=== PATIENT | male | born 1960 | race Caucasian/White ===

== ENCOUNTER 2017-04-25 11:20 | Observation (INO) | payer OTHER, SELFPAY ==
[2017-04-25 11:22] VITALS: BP 151/107; PULSE 84; RESP 17; TEMP 36.7; O2SAT 98; BMI 24.5
--- NOTE | 2017-04-25 11:52 | CT_ITS ---
STUDY: CT ABDOMEN AND PELVIS WITHOUT CONTRAST REASON FOR EXAM: Male, 56 years old. Right flank pain and hematuria. RADIATION DOSAGE (If Supplied By Facility): CTDIvol = ( 9.05 ) mGy, DLP = ( 440.71 ) mGycm TECHNIQUE: Transaxial images were obtained from the dome of the diaphragm to the symphysis pubis without oral contrast, and without intravenous contrast. Sagittal and coronal images were reconstructed. Individualized dose optimization techniques were used for this CT. COMPARISON: Comparison is made with prior study dated October 29, 2011. FINDINGS: Minimal linear atelectasis at the right lung base. The visualized portions of the heart are within normal limits. Normal liver. Normal gallbladder and extrahepatic biliary system. Normal spleen. Normal pancreas. Normal bilateral adrenal glands. Stable appearance of the right kidney. There is a moderate degree of cortical atrophy of the right kidney. Multiple cysts are seen some of them are hyperdense. There now is evidence of a 3.2 cm x 3.5 cm soft tissue mass in the inferior lateral portion of the right kidney. A neoplastic process should be ruled out. There is a 2.1 cm hyperdense nodule in the posterior superior aspect of the left kidney. This has slightly increased in size and may represent a hyperdense cyst. Correlation with ultrasound is recommended. Normal visualized stomach. Normal small intestine. Surgical anastomosis is seen in the sigmoid colon. There are surgical clips in the region of the appendix consistent with a prior appendectomy. There is scattered atherosclerotic calcification of the abdominal aorta, without a demonstrated aneurysm. Normal inferior vena cava. Normal retroperitoneum. Mild degree of bladder wall thickening although the bladder is not completely distended. There is a small umbilical hernia containing fat. There are diffuse degenerative changes of the visualized lumbar spine. Stable subchondral cystic changes seen in the vertebrae. Loss of the normal lumbar lordosis. CT/Abdomen/Pelvis without Cont IMPRESSION: Moderate atrophy of the right kidney with a probable mass as described. Correlation with ultrasound is recommended. Electronically Signed: Shaq Roe MD at 12:40 EST Tel [phone], Service support ,
[2017-04-25] MEDS: 0.9% Normal Saline 1,000 ML 1000 ML IV (11:57)
--- NOTE | 2017-04-25 11:57 | ED.DCSUM_ITS ---
- ER Visit Summary Date of Service: 04/25/17 Chief Complaint: [] Hematuria History of Present Illness: The patient is a 56 M [] complaining of hematuria beginning yesterday. Reports the last several times he has peed it has had red blood. Reports this is painless. Denies nausea and vomiting. Denies fevers. Denies weight loss. Reports he has not seen a physician for approximately 10 years. Reports mild right CVA tenderness prior to arrival. Denies pain now and does not want any pain medications. Denies dysuria. Physical Examination: [] Afebrile, vital signs stable. 56-year-old male in no acute distress. Cardiovascular exam is regular rate and rhythm. Lungs are clear to auscultation. Abdomen is soft and nontender. No CVA tenderness on exam. No lower extremity edema. Test Results: [] Labs normal the exception of slight elevation of the alk phos, ALT, AST. INR 1.0. CT of the abdomen/pelvis without contrast shows a right kidney mass. Renal ultrasound shows a confirmed solid mass in the right kidney. Emergency Department Course and Treatment: [] Patient provided IV fluids. Case discussed with the on-call oncologist/ industrial maintenance tech, urologist, and hospitalist. Patient will be admitted to the hospitalist with consultation to urology. Urologist informed me he will likely take the patient to the operating room tomorrow for a scope. Patient is amenable to admission and evaluation. Treatment Plan: [] Admit to medicine, consult urology. Disposition: [] Admit, stable. Impression: [] Painless hematuria New right renal mass This note was generated with [employer] dictation software. It may contain incorrect words, spelling, and punctuation that were not noted in review of the chart prior to signing ED Disposition - Plan for ED Patient: Chief Complaint: Complaint Referrals: David Rico MD [STAFF PHYSICIAN] -
[2017-04-25 12:03] LABS: Absolute Lymphocyte Count 1.44 X10^3/ul (0.83-4.51); Absolute Neutrophil Count 3.2 X10^3/uL (2.0-7.7); Basophil# 0.03 X10^3/uL; Basophil% 0.5 % (0-1); Eosinophil# 0.28 X10^3/uL; Eosinophils% 4.7 % (0-5); Hematocrit 44.6 % (40-54); Hemoglobin 15.2 g/dl (13.0-16.5); Lymphocyte # 1.44 X10^3/ul (4.0); Lymphocyte % 24.2 % (19-41); Mean Corp Hgb Conc 34.1 g/gl (32-36); Mean Corpuscular Hgb 33.5 pg (27.0-32.0); Mean Corpuscular Volume 98.2 fL (80-94); Mean Platelet Vol. 9.9 fl (6.2-12.0); Monocyte# 0.94 X10^3/uL; Monocyte% 15.8 % (0-10); Neutrophil # 3.23 X10^3/uL (2.7-7.7); Neutrophil % 54.5 % (47-70); Platelet Count 189 K/mm3 (150-450); RBC Distribution Width CV 13.3 % (11.6-14.6); RBC Distribution Width SD 47.4 fl (35.1-43.9); Red Blood Count 4.54 M/mm3 (4.6-6.2); White Blood Count 5.9 K/mm3 (4.4-11.0)
[2017-04-25 12:05] LABS: POSITIVE COUNT NO; POSITIVE DIFFERENTIAL NO; POSITIVE MORPHOLOGY NO
[2017-04-25 12:11] LABS: Partial Thromboplast Time 28.4 Seconds (24.1-36.2); Prothrombin Time (Protime)PT. 12.7 SECONDS (11.7-14.9)
[2017-04-25 12:16] LABS: AST(SGOT) 142 U/L (15-37); Alanine Aminotransfer ALT/SGPT 183 U/L (16-61); Albumin, Serum 3.6 g/dL (3.2-5.0); Alkaline Phosphatase 124 U/L (45-117); Anion Gap 4 (5-15); BUN 11 mg/dL (7-18); BUN/Creat Ratio 12.3 RATIO (10-20); Calcium,Total 8.7 mg/dL (8.5-10.1); Chloride 100 mmol/L (98-107); EST Glomerular Filtration Rate 94 mL/min (>60); Est Glom Filt Rate - Afr Amer 113 mL/min (>60); Estimated Creatinine Clearance 90.78 ml/min; Globulin 3.6 g/dL (2.2-4.2); Glucose 95 mg/dL (74-106); Potassium 4.5 mmol/L (3.5-5.1); Protein, Total 7.2 g/dL (6.4-8.2); Sodium Level 136 mmol/L (136-145)
--- NOTE | 2017-04-25 13:00 | US_ITS ---
STUDY: RENAL ULTRASOUND - COMPLETE REASON FOR EXAM: Male, 56 years old. Possible right renal mass. TECHNIQUE: Ultrasound evaluation of the kidneys was performed with real-time and static yanez-scale imaging. COMPARISON: Comparison is made with prior CT scan of the abdomen and earlier today. FINDINGS: RIGHT KIDNEY: Normal location of the right kidney, which is normal in size. The right kidney measures 12.1 cm x 5.7 cm x 4.7 cm. There is a normal cortex of the right kidney. The renal cortex measures 1.5 cm. Multiple renal cysts are seen. The largest measures 4.5 cm x 4.4 cm x 3.4 cm. In the lateral aspect of the right kidney, there is evidence of a 3.3 cm x 2.7 cm x 2.7 cm solid mass. A neoplastic process should be ruled out. There are no right renal calculi. There is no right hydronephrosis. DISTAL RIGHT URETER: There is non-visualization of the distal right ureter. There is no demonstrated right ureterovesical junction calculus. There is no demonstrated right ureteral jet. LEFT KIDNEY: Normal location of the left kidney, which is normal in size. The left kidney measures 13 cm x 4.7 cm x 5.8 cm. There is a normal cortex of the left kidney. The renal cortex measures 1.8 cm. There is a 1.8 cm x 1.8 cm x 2.2 cm cyst. There are no left renal calculi. There is no left hydronephrosis. DISTAL LEFT URETER: There is non-visualization of the distal left ureter. There is no demonstrated left ureterovesical junction calculus. There is no demonstrated left ureteral jet. BLADDER: The distended urinary bladder has a volume of 252 ml. Mild degree of diffuse bladder wall thickening measuring 4 mm. There is no demonstrated mass within the urinary bladder. There are no demonstrated bladder calculi. US/Kidney and Bladder IMPRESSION: Multiple bilateral renal cysts. 3.3 cm x 2.7 cm x 2.7 cm solid mass in the mid lateral portion of the right kidney. Electronically Signed: Shaq Roe MD at 14:49 EST Tel [phone], Service support ,
[2017-04-25 13:13] LABS: Mucous, Urine 0 SEEN /hpf (<or=2+); Squamous Epithelial Cells - UA 0 SEEN /hpf (0-5)
[2017-04-25 13:18] LABS: Color, Urine Red (Yellow); Glucose, Dipstick Normal (Normal); Ketone-Dipstick 5 mg/dl (Negative); Leukocyte Esterase-Dipstick 100 /ul (Negative); Nitrite-Dipstick Negative (Negative); Occult Blood-Urine 250 /ul (Negative); Protein-Dipstick 100 mg/dl (Negative); Urine Bilirubin Dipstick Negative (Negative); Urine Clarity Cloudy (Clear); Urine Urobilinogen Normal (Normal); Urine pH 6.5 (5.0 - 8.0)
[2017-04-25 13:24] LABS: Red Blood Cells-Urine > 100 SEEN /hpf (0-5)
[2017-04-25 13:27] LABS: White Blood Cells 10-25 SEEN /hpf (0-5)
[2017-04-25 13:28] LABS: Bacteria 1+ /hpf (None Seen)
[2017-04-25 15:34] VITALS: BP 159/96; PULSE 79; RESP 17; O2SAT 98
[2017-04-25 15:37] VITALS: BP 161/97; PULSE 74; RESP 17; O2SAT 98
[2017-04-25 15:52] VITALS: BMI 24.6
--- NOTE | 2017-04-25 16:24 | HP.PCM_ITS ---
Problem List (1) Tobacco use Status: Chronic (2) Cannabis use disorder, mild, abuse Status: Chronic (3) ETOH abuse Status: Chronic (4) Elevated BP without diagnosis of hypertension Status: Chronic (5) Hematuria Status: Acute Qualifiers: Hematuria type: unspecified type Qualified Code(s): R31.9 - Hematuria, unspecified (6) Renal mass, right Status: Chronic History of Present Illness Date of Admission: 04/25/17 Chief Complaint: Hematuria, painless The patient is a 56 y/o M w/ PMHx: Tobacco use, EtOH Abuse (6, 12 ounce beers/ day), Cannabis usage who does not regular see a physician who presents to the [facility] ED on 04/25/17 with history of painless hematuria x 2 days. In the ED work-up included T 98, HR 70s, BP 150-160s/90-100, RR 17, 98% on RA, CBC w/ WBC 5.9, Hgb 15.2, Plts 189 with increased mono%, normal coags, CMP w/ Alk phos 124, AST/ ALT 183/142, UA w/ blood 250, protein 100, > 100 RBC, 10-25 WBC, 0 SEC, 1+ bacteria, CT A/P w/ moderate atrophy of the right kidney with a probable mass, follow-up US w/ multiple bilateral renal cysts, 3.3x2.7x2.5 cm solid mass in the mid lateral portion of the R kidney. In the ED patient administered NS. ED physician contacted Urology and recommendation for further evaluation. Discussed case with Urology and will obtain CT A/P with contrast. At this time no necessary progressive toward intervention inpatient. Although in case will obtain EKG and CXR which were obtained in the ED prior to transition to the floor. Past Medical History Past Medical History (Chronic Problems): Chronic Problems Tobacco use (Chronic) Cannabis use disorder, mild, abuse (Chronic) ETOH abuse (Chronic) Elevated BP without diagnosis of hypertension (Chronic) Renal mass, right (Chronic) Allergies No Known Allergies Allergy (Verified 04/25/17 11:21) Home Medications: Ambulatory Orders Medication Instructions Recorded NK [NK] 04/25/17 Psychiatric History: No pertinent psych hx Lives: Spouse/ Significant Other Smoking Status: Current every day smoker - 1/2 ppd. Tobacco Use: Cigarettes Alcohol: Heavy - 6, 12 ounce beers per day. Drugs: Marijuana - *Family History Maternal History Items: No pertinent history Paternal History Items: Unknown Review of Systems Constitutional: Denies: Chills, Fever, Weight Change HEENT: Denies: Head Aches, Sinus Congestion, Sinus Drainage Cardiovascular: Denies: Chest Pain, Palpitations Respiratory: Denies: Cough, Shortness of breath at rest, Sputum production Gastrointestinal: Denies: Abdominal Pain, Nausea, Vomiting Genitourinary: Reports: Hematuria. Denies: Dysuria Musculoskeletal: Denies: Joint Pain, Joint Tenderness Skin: Denies: Rash, Wounds Neurological: Denies: Numbness, Tingling, Focal weakness Psychiatric: Denies: Anxiety, Depression, Homicidal Ideations, Suicidal Ideations Hematologic/ Lymphatic: Denies: Easy Bruising, Easy Bleeding VTE Information - Inpt Only VTE Present on Admission: No VTE Mechan Device Prophylaxis: SCD's VTE Pharm Prophylaxis ordered?: No Reason prophylaxis not ordered:: Medical Contraindication Patient Problems: Active and Suspected Problems Hematuria (Acute) Subjective: Seated upright in the ED bed, NAD. Objective: Physical Examination: General: awake, alert, oriented x 3 and cooperative, seated upright in the ED bed in no apparent distress. Skin: normal color, turgor, no icterus, cyanosis. HEENT: AT/NC, EOMI, PERRLA, MMM, no carotid bruits or JVD noted. Lungs: CTA bilaterally, moderate effort, mild decrease BL bases, no rales, ronchi or wheezing. Heart: Regular rate and rhythm; no gallop, rub audible. Abdomen: soft, thin habitus, NTTP, ND, normal BS, +HM. Extremities: no cyanosis, clubbing, or edema. Neurological: patient awake, alert, oriented x 3; cognitive function intact; pupils equally reactive to light and accomodation; cranial nerves II-XII grossly normal, moving all 4 extremities, no focal deficits, strength preserved. Psychiatric: affect appears normal, no acute evidence of depressive or anxiety feelings. - Physical Exam Vital Signs Temp Pulse Resp BP Pulse Ox 98.0 F 74 17 161/97 H 98 04/25/17 11:22 04/25/17 15:37 04/25/17 15:37 04/25/17 15:37 04/25/17 15:37 Oxygen Delivery Method Room Air Weight: 161 lb 13.109 oz Body Mass Index (BMI) 24.5 Laboratory Tests Past 24 Hrs 04/25/17 04/25/17 04/25/17 11:40 11:40 11:40 WBC 5.9 RBC 4.54 L Hgb 15.2 Hct 44.6 MCV 98.2 H MCH 33.5 H MCHC 34.1 RDW 13.3 RDW Differential 47.4 H Plt Count 189 MPV 9.9 Immature Gran % (Auto) 0.300 Neut % (Auto) 54.5 Lymph % (Auto) 24.2 [place] % (Auto) 15.8 H Eos % (Auto) 4.7 Baso % (Auto) 0.5 Absolute Neuts (auto) 3.2 Absolute Lymphs (auto) 1.44 Total Counted Not Reportable PT 12.7 INR 1.0 APTT 28.4 Sodium 136 Potassium 4.5 Chloride 100 Carbon Dioxide 32.0 Anion Gap 4 L BUN 11 Creatinine 0.90 Estim Creat Clear Calc 90.78 Est GFR (MDRD) Af Amer 113 Est GFR (MDRD) Non-Af 94 BUN/Creatinine Ratio 12.3 Glucose 95 Calcium 8.7 Total Bilirubin 0.90 AST 142 H ALT 183 H Alkaline Phosphatase 124 H Total Protein 7.2 Albumin 3.6 Globulin 3.6 Albumin/Globulin Ratio 1.0 Urine Color Urine Clarity Urine pH Ur Specific Ash Urine Protein Urine Glucose (UA) Urine Ketones Urine Occult Blood Urine Nitrite Urine Bilirubin Urine Urobilinogen Ur Leukocyte Esterase Urine RBC Urine WBC Ur Squamous Epith Cells Urine Bacteria Urine Mucus 04/25/17 12:56 WBC RBC Hgb Hct MCV MCH MCHC RDW RDW Differential Plt Count MPV Immature Gran % (Auto) Neut % (Auto) Lymph % (Auto) [place] % (Auto) Eos % (Auto) Baso % (Auto) Absolute Neuts (auto) Absolute Lymphs (auto) Total Counted PT INR APTT Sodium Potassium Chloride Carbon Dioxide Anion Gap BUN Creatinine Estim Creat Clear Calc Est GFR (MDRD) Af Amer Est GFR (MDRD) Non-Af BUN/Creatinine Ratio Glucose Calcium Total Bilirubin AST ALT Alkaline Phosphatase Total Protein Albumin Globulin Albumin/Globulin Ratio Urine Color Red Urine Clarity Cloudy Urine pH 6.5 Ur Specific Ash 1.010 Urine Protein 100 H Urine Glucose (UA) Normal Urine Ketones 5 H Urine Occult Blood 250 H Urine Nitrite Negative Urine Bilirubin Negative Urine Urobilinogen Normal Ur Leukocyte Esterase 100 H Urine RBC > 100 SEEN Urine WBC 10-25 SEEN Ur Squamous Epith Cells 0 SEEN Urine Bacteria 1+ Urine Mucus 0 SEEN Assessment/Plan Active and Suspected Problems Hematuria (Acute) The patient is a 56 y/o M w/ PMHx: Tobacco use, EtOH Abuse, Cannabis usage who does not regular see a physician who presents to the [facility] ED on 04/25/17 with history of painless hematuria x 2 days. (1) Painless Hematuria w/ Right Renal Mass w/ ? UTI: Ongoing hematuria, noted history of tobacco use, UA w/ ? UTI, notable WBC, 1+ bacteria, decent sample in addition to hematuria, will admit to [facility] to complete work-up per Urology/ED request, maintain on IVFs, initiate IV rocephin, obtain per Urology request CT A /P with IV contrast as prior performed without contrast, likely no intervention during current admission, but in case maintain NPO after midnight except sip water w/ medications and obtain EKG, CXR given tobacco use history. If onset notable clots with any concern for retention would initiate irrigation. Expect following Urology assessment possible discharge to home. (2) Elevated Liver Function Tests: Given EtOH abuse history and HM, not surprising, continue to hydrate, repeat hepatic profile in AM, obtain hepatic US to be thorough given renal findings concurrently, obtain hepatitis panel. (3) Tobacco Abuse: Encouraged cessation, inpatient consultation per RT, NR if desired. (4) EtOH Abuse: Patient notes routine consumption of at least 6, 12 ounce beers per day. Will maintain on CIWA protocol, MVI, thiamine and folic acid. Patient notes intention of continued EtOH usage. EtOH level pending. (5) Elevated BP without HTN Dx: Not evaluated per physician in some time, likely HTN, will continue to monitor, add regimen if continued above goal into tomorrow, PRN hydralazine. (6) DVT Prophylaxis: SCDs, defer chemoprophylaxis given hematuria presentation. Code Visit OBSV E&M: 77685 Initial observation care L3
--- NOTE | 2017-04-25 16:41 | EKG12_ITS ---
Test Reason : HX OF SMOKING Blood Pressure : / mmHG Vent. Rate : 068 BPM Atrial Rate : 068 BPM P-R Int : 138 ms QRS Dur : 090 ms QT Int : 384 ms P-R-T Axes : 050 053 057 degrees QTc Int : 408 ms Normal sinus rhythm Septal infarct , age undetermined Abnormal ECG Confirmed by RUEL RODRIGUEZ, MINNA ([id number]), publication editor WALLY SALGADO ([id number]) on 04/30/2017 2:08:57 PM Referred By: ELSY Confirmed By:MINNA LIPSCOMB MD
--- NOTE | 2017-04-25 16:43 | RAD_ITS ---
STUDY: X-RAY CHEST REASON FOR EXAM: Male, 56 years old. Blood in urine. TECHNIQUE: Frontal and lateral views of the chest. COMPARISON: None. FINDINGS: The lungs are clear and expanded. There is no demonstrated pleural abnormality. Normal size heart. Normal mediastinum and zainab. Normal visualized pulmonary arteries. Normal visualized aortic arch and descending thoracic aorta. Normal visualized thoracic spine. Normal visualized ribs, clavicles, and shoulders. There is no demonstrated abnormality of the visualized soft tissue structures of the upper abdomen. RAD/Chest PA and Lateral IMPRESSION: Normal x-ray examination of the chest. Electronically Signed: Norberto Osuna MD at 17:06 EST , Service support ,
--- NOTE | 2017-04-25 16:44 | NURSING ---
314 HEMATURIA, RENAL MASS WHITE
--- NOTE | 2017-04-25 16:47 | US_ITS ---
STUDY: ABDOMINAL ULTRASOUND - RIGHT UPPER QUADRANT REASON FOR VISIT: Male, 56 years old. Elevated liver function tests. TECHNIQUE: Ultrasound evaluation of the right upper quadrant was performed with real-time and static baxter-scale imaging. TECHNICAL QUALITY: Limited. The patient is nonfasting. COMPARISON: CT scan of the same day.. FINDINGS: Liver: The liver measures 14.3 cm. There is normal echogenicity of the liver. The bile ducts are within normal limits. There is hepatic color flow. The direction of portal flow is hepatopetal. There is no demonstrated mass lesion. Gallbladder: Incompletely distended gallbladder. The gallbladder wall measures 3 mm. There is a negative sonographic Bruno's sign. There is no pericholecystic fluid. There are no gallstones. Common Bile Duct (C.B.D.): The common bile duct measures 3 mm. Pancreas: Not adequately seen. Right Kidney: Markedly abnormal right kidney including possible solid mass-see the CT report. US/Liver IMPRESSION: No definite abnormality of the liver or the gallbladder. However the gallbladder is incompletely distended and evaluation is limited. Markedly abnormal right kidney including possible solid mass-see the CT report. Apparently the referring physician indicated that the patient did not need to be fasting. Electronically Signed: Norberto Osuna MD at 21:48 EST , Service support ,
--- NOTE | 2017-04-25 16:47 | NURSING ---
NO OLD EKGS
--- NOTE | 2017-04-25 17:47 | CT_ITS ---
STUDY: CT ABDOMEN AND PELVIS WITH CONTRAST REASON FOR EXAM: Male, 56 years old. Hematuria. Renal mass. RADIATION DOSAGE (If Supplied By Facility): CTDIvol = ( 13.09 ) mGy, DLP = ( 1182.75 ) mGycm TECHNIQUE: Transaxial images were obtained from the dome of the diaphragm to the symphysis pubis without oral contrast. 100 ml of Isovue 300 contrast was administered. Sagittal and coronal images were reconstructed. Individualized dose optimization techniques were used for this CT. COMPARISON: Earlier today at 12:00 PM. FINDINGS: The visualized lung bases are unremarkable. The visualized portions of the heart are within normal limits. Abnormal appearance of the right kidney with numerous scars cysts and chronic severe hydronephrosis. This examination confirms a suspicious mass 3.1 cm size in the lower right kidney which could be a neoplasm. Left kidney shows no significant abnormalities. There is a 2.4 cm posterior exophytic renal cyst, also present previously. No other changes or acute abnormalities since the exam of earlier today. CT/Abdomen/Pelvis WITH Contrast IMPRESSION: This exam confirms a very suspicious 3.1 cm solid mass of the lower pole of the right kidney which is otherwise markedly abnormal. Renal cell carcinoma is a possibility. Electronically Signed: Norberto Osuna MD at 20:53 EST , Service support ,
[2017-04-25 18:01] VITALS: BMI 24.3
[2017-04-25 18:10] VITALS: BP 158/100; PULSE 70; RESP 16; TEMP 36.5; O2SAT 98
[2017-04-25 18:12] VITALS: BP 158/100; PULSE 70; RESP 16; TEMP 36.5; O2SAT 98
[2017-04-25] MEDS: 0.9% Normal Saline 1,000 ML 125 ML IV (18:15)
[2017-04-25] MEDS: Ceftriaxone 1 GM/50 ML BAG IV (18:22)
[2017-04-25] MEDS: HYDROcodone Bitartrate/Apap 5/325 Tablet PO (18:34)
[2017-04-25 18:50] LABS: Phosphorus 2.2 mg/dL (2.5-4.9)
[2017-04-25 18:55] LABS: Alcohol, Blood (Medical)-Serum < 3.0 mg/dL
[2017-04-25] MEDS: Famotidine 20 MG Tablet PO (21:31)
[2017-04-25] MEDS: Docusate Sodium 100 MG Capsule PO (21:31)
[2017-04-25] MEDS: Thiamine Hydrochloride 100 MG Tablet PO (21:31)
[2017-04-25] MEDS: 0.9% NaCl Peripheral Flush Adult/Peds IV (21:32)
[2017-04-25 21:33] VITALS: BP 137/96; PULSE 68; RESP 16; TEMP 36.7; O2SAT 98
[2017-04-26] VITALS (10 sets, daily range): BP systolic 109–140; BP diastolic 80–96; PULSE 60–77; RESP 16–18; TEMP 36.3–36.6; O2SAT 95–98; BMI 24.2
--- NOTE | 2017-04-26 | FLU_PTH ---
PATIENT: PRASANTH PHAN LOC: MS3 U#:[id number] AGE/SX: 56/M ROOM: MD314 RE04/25/[address]: Dr. Pavithra Peterson MD : [id number] BED: 1 DIS: 04/26/2017 SPEC #: [id number] RECD: 04/26/17 14:30 STATUS: YAKELIN RIGOBERTO #: [id number] LUCIE: 04/26/17 00:[address]: Pavithra Peterson DEPT: CYTOLOGY RECD BY: Valentina Giordano ENTERED: 04/26/17 14:30 SP TYPE: Fluid OTHR DR: Dr. Jorge Gray MD No Primary Care Phys Tissues: Urine Procedures: Pap Stain (control) Special Stain Group II Surgery Specimen Level IV Cytospin Fluid HEADER OPERATION: Not noted PRE-OP DIAGNOSIS: Hematuria TISSUE SUBMITTED: Urine for cytology DIAGNOSIS CYTOLOGY Urine for cytology (cytospin): Atypical urothelial cells in clusters present. See comment. AM:treasure 04/29/17 COMMENT The findings are nonspecific and could represent a variety of conditions including infection, urolithiasis, instrumentation and low grade urothelial neoplasm. Clinical correlation is necessary. Case has been reviewed in consultation with Dr. Brown who concurs with the above diagnosis. IDC:[facility] CYTOLOGY STUDY Slides are reviewed. CYTOLOGY GROSS Received is 8 ml of red, cloudy fluid labeled with the patient's name and and designated per the requisition as urine. Submitted for cytology preparation. 04/26/17 TC:? CPT: 62679
[2017-04-26 01:42] LABS: Amphetamine Urine VISTA NEGATIVE (<1000 ng/mL); Barbiturate Urine VISTA NEGATIVE (< 200 ng/mL); Benzodiazepine Urine VISTA POSITIVE (< 200 ng/mL); Cocaine Urine VISTA NEGATIVE (< 300 ng/mL); Ecstacy Urine VISTA NEGATIVE (< 500 ng/mL); Methadone Urine VISTA NEGATIVE (< 300 ng/mL); PCP Urine VISTA NEGATIVE (< 25 ng/mL); THC Urine VISTA POSITIVE (< 50 ng/mL); Vista UDS pH Range 7
[2017-04-26] MEDS: 0.9% Normal Saline 1,000 ML 125 ML IV (03:30)
[2017-04-26 06:28] LABS: Absolute Lymphocyte Count 1.27 X10^3/ul (0.83-4.51); Absolute Neutrophil Count 1.6 X10^3/uL (2.0-7.7); Basophil# 0.05 X10^3/uL; Basophil% 1.3 % (0-1); Eosinophil# 0.27 X10^3/uL; Hematocrit 38.8 % (40-54); Hemoglobin 13.5 g/dl (13.0-16.5); Lymphocyte # 1.27 X10^3/ul (4.0); Lymphocyte % 32.8 % (19-41); Mean Corp Hgb Conc 34.8 g/gl (32-36); Mean Corpuscular Hgb 34.2 pg (27.0-32.0); Mean Corpuscular Volume 98.2 fL (80-94); Mean Platelet Vol. 10.4 fl (6.2-12.0); Monocyte% 18.1 % (0-10); Neutrophil # 1.57 X10^3/uL (2.7-7.7); Neutrophil % 40.5 % (47-70); Platelet Count 161 K/mm3 (150-450); RBC Distribution Width SD 45.9 fl (35.1-43.9); Red Blood Count 3.95 M/mm3 (4.6-6.2); White Blood Count 3.9 K/mm3 (4.4-11.0)
[2017-04-26 06:31] LABS: POSITIVE COUNT NO; POSITIVE DIFFERENTIAL NO; POSITIVE MORPHOLOGY NO
[2017-04-26 06:35] LABS: AST(SGOT) 100 U/L (15-37); Alanine Aminotransfer ALT/SGPT 148 U/L (16-61); Albumin, Serum 2.8 g/dL (3.2-5.0); Alkaline Phosphatase 93 U/L (45-117); Anion Gap 6 (5-15); BUN 12 mg/dL (7-18); BUN/Creat Ratio 14.4 RATIO (10-20); Bilirubin, Direct 0.17 mg/dL (0.00-0.30); Chloride 100 mmol/L (98-107); Creatinine, Serum 0.83 mg/dL (0.70-1.30); EST Glomerular Filtration Rate 102 mL/min (>60); Est Glom Filt Rate - Afr Amer 124 mL/min (>60); Estimated Creatinine Clearance 98.43 ml/min; Globulin 3.2 g/dL (2.2-4.2); Glucose 97 mg/dL (74-106); Potassium 4.5 mmol/L (3.5-5.1); Sodium Level 134 mmol/L (136-145)
--- NOTE | 2017-04-26 08:51 | PCM.DC ---
- Discharge Diagnoses Current Active Problems: Current Active and Chronic Problems Tobacco use (Chronic) Cannabis use disorder, mild, abuse (Chronic) ETOH abuse (Chronic) Elevated BP without diagnosis of hypertension (Chronic) Hematuria (Acute) Renal mass, right (Chronic) (1) Painless Hematuria w/ Right Renal Mass w/ Acute UTI, Unclear Etiology for Renal Mass, Possible Renal Cell Carcinoma, Planned outpatient continued evaluation per Dr. Gray, Urology (2) Elevated Liver Function Tests, Suspected Chronic secondary to EtOH Abuse, Unremarkable Liver US, Hepatitis panel pending upon discharge (3) Tobacco Abuse (4) EtOH Abuse (5) Elevated BP without HTN Dx, Improved You will use the following diet at home:: No restrictions Your food should be the consistency of: Regular Your liquids should be the consistency of: Regular/Thin Discharge Activity: Return to Normal Activity May resume sexual activity in: 1-2 weeks Weight Bearing Status: Weight bearing as tolerated Call your doctor if you observe: Fever of 101 or Higher, Inability to urinate, Inability to have a bowel movement, Shortness of breath, Dizziness, Fainting spells, Chest pain, Uncontrolled pain, - - Increased blood in the urine or clots or sensation of retention of urine. Instructions: Understanding Urinary Tract Infections (UTIs), ED UTI Cystitis Male, What is Hematuria?, Hematuria: Possible Causes, What Is Kidney (Renal) Cancer? Additional Instructions: If you have worsened blood onset in your urine or issues urinating secondary to development of clots, please contact Dr. Gray office immediately. Allergies/Adverse Reactions: Allergies No Known Allergies Allergy (Verified 04/25/17 11:21) Medications to take at Discharge Cephalexin [Keflex] 500 mg PO Q12 #20 cap 04/26/17 Multivitamins,Ther W-Minerals [Multivitamin With Minerals] 1 tab PO DAILY #30 tab 04/26/17 Nicotine [Nicoderm] 14 mg TRANSDERM. DAILY #14 patch 04/26/17 Vitamin B Complex/Folic Acid [B-Complex Tablet] 0.4 mg PO DAILY #30 tab 04/26/17 The following prescriptions were given: Cephalexin [Keflex] 500 mg PO Q12 #20 cap Multivitamins,Ther W-Minerals [Multivitamin With Minerals] 1 tab PO DAILY #30 tab Nicotine [Nicoderm] 14 mg TRANSDERM. DAILY #14 patch Vitamin B Complex/Folic Acid [B-Complex Tablet] 0.4 mg PO DAILY #30 tab Primary Care Physician: David Rico MD [STAFF PHYSICIAN] - Please follow up with your Primary Care Physician in: Follow-up within 3-5 days to review admission. Please Follow Up With: Jorge Gray MD When: Follow-up within 1 week to review admission, discuss work-up renal mass. Proposed Discharge Date: 04/26/17
--- NOTE | 2017-04-26 08:56 | PCM.DC.SUM ---
Discharge Date and Diagnosis - Problem List Patient Problems: Active and Suspected Problems Hematuria (Acute) Date of Admission: 04/25/17 Date of Discharge: 04/26/17 - Primary Discharge Diagnosis Active and Suspected Problems Hematuria (Acute) (1) Painless Hematuria w/ Right Renal Mass w/ Acute UTI, Unclear Etiology for Renal Mass, Possible Renal Cell Carcinoma, Planned outpatient continued evaluation per Dr. Gray, Urology (2) Elevated Liver Function Tests, Suspected Chronic secondary to EtOH Abuse, Unremarkable Liver US, Hepatitis panel pending upon discharge (3) Tobacco Abuse (4) EtOH Abuse (5) Elevated BP without HTN Dx, Improved - Secondary Discharge Diagnosis Chronic Problems Tobacco use (Chronic) Cannabis use disorder, mild, abuse (Chronic) ETOH abuse (Chronic) Elevated BP without diagnosis of hypertension (Chronic) Renal mass, right (Chronic) Hospital Course and Treatment Imaging Results: 04/26/17 14:30 O.R. Fluoro for C-Arm [RAD] Urgent Dr. Gray Urology Operations: None Procedures: None, - - Cystoscopy per Dr. Gray. Summary of Care Provided: The patient is a 56 y/o M w/ PMHx: Tobacco use, EtOH Abuse, Cannabis usage who does not regular see a physician who presented to the [facility] ED on 04/25/17 with history of painless hematuria x 2 days. In the ED work-up included T 98, HR 70s, BP 150-160s/90-100, RR 17, 98% on RA, CBC w/ WBC 5.9, Hgb 15.2, Plts 189 with increased mono%, normal coags, CMP w/ Alk phos 124, AST/ALT 183/142, UA w/ blood 250, protein 100, > 100 RBC, 10-25 WBC, 0 SEC, 1+ bacteria, CT A/P w/ moderate atrophy of the right kidney with a probable mass, follow-up US w/ multiple bilateral renal cysts, 3.3x2.7x2.5 cm solid mass in the mid lateral portion of the R kidney. The patient was admitted to [place] to complete work-up per Urology/ED request, maintained on IVFs, initiated IV rocephin with planned keflex transition upon discharge, obtained CT A/P with IV contrast as prior performed without contrast to better evaluation renal mass with confirmation of suspicious appearing 3.1 cm solid mass of the lower pole right kidney. 04/26/17 Cystoscopy per Urology performed then planned follow-up outpatient to continue work-up and evaluation for renal mass. During admission noted stable appearing mild Elevated Liver Function Tests, suspected secondary to chronic EtOH abuse history with unremarkable appearing liver US, stable levels. Patient noted routine consumption of at least 6, 12 ounce beers per day thus maintained on CIWA protocol, MVI, thiamine and folic acid. Upon discharge continued vitamin supplementation and encouraged safe sobriety. Additionally, encouraged tobacco cessation, inpatient consultation per RT, NR rx upon discharge. During admission patient with Elevated BP without HTN Dx upon presentation, improved, encouraged PCP re-evaluation and treatment if appropriate. DAY OF DISCHARGE PROGRESS NOTE: Subjective: Patient without acute event overnight per self and nursing report. Patient does report mild flank discomfort otherwise no acute complaints. Patient denies fever, chills, nausea, emesis, abdominal pain or dyspnea. Patient agreeable to discharge to home following planned cystoscopy per Dr. Gray with outpatient further evaluation and work-up of renal mass. Patient will be discharged with follow-up with primary care physician within 3-5 days in addition to Dr. Gray within 1 week. Objective: T 97.7, HR 74, BP 131/95, RR 16, 96% on RA. Physical Examination: General: awake, alert, oriented x 3 and cooperative, seated upright in the bed, NAD. Skin: normal color, turgor, no icterus, cyanosis. HEENT: AT/NC, EOMI, PERRLA, MMM. Lungs: CTA bilaterally, moderate effort, mild decrease BL bases, no rales, ronchi or wheezing; Heart: Regular rate and rhythm; no gallop, rub audible. Abdomen: soft, NTTP, ND, normal BS. Extremities: no cyanosis, clubbing, or edema. Neurological: patient awake, alert, oriented x 3; cognitive function appears intact upon questioning,; pupils equally reactive to light and accomodation; cranial nerves II-XII grossly normal, moving all 4 extremities, strength appropriate. Psychiatric: affect appears normal, no acute evidence of depressive or anxiety feelings. Assessment and Plan: Please see hospital summary above. Discharge Activity: Return to Normal Activity May resume sexual activity in: 1-2 weeks Weight Bearing Status: Weight bearing as tolerated Call your doctor if you observe: Fever of 101 or Higher, Inability to urinate, Inability to have a bowel movement, Shortness of breath, Dizziness, Fainting spells, Chest pain, Uncontrolled pain, - - Increased blood in the urine or clots or sensation of retention of urine. Home Medications: Medications to take at Discharge Amoxicillin [Amoxil] 500 mg PO Q12H #20 capsule 04/26/17 Multivitamins,Ther W-Minerals [Multivitamin With Minerals] 1 tab PO DAILY #30 tab 04/26/17 Nicotine [Nicoderm] 14 mg TRANSDERM. DAILY #14 patch 04/26/17 Vitamin B Complex/Folic Acid [B-Complex Tablet] 0.4 mg PO DAILY #30 tab 04/26/17 Following Prescrptions Were Given to Patient: Amoxicillin [Amoxil] 500 mg PO Q12H #20 capsule Multivitamins,Ther W-Minerals [Multivitamin With Minerals] 1 tab PO DAILY #30 tab Nicotine [Nicoderm] 14 mg TRANSDERM. DAILY #14 patch Vitamin B Complex/Folic Acid [B-Complex Tablet] 0.4 mg PO DAILY #30 tab Primary Care Physician: David Rico MD [STAFF PHYSICIAN] - Please follow up with your Primary Care Physician in: Follow-up within 3-5 days to review admission. Please Follow Up With: Jorge Gray MD When: Follow-up within 1 week to review admission, discuss work-up renal mass. Patient Instructions: What is Hematuria?, Hematuria: Possible Causes, Understanding Urinary Tract Infections (UTIs), What Is Kidney (Renal) Cancer?, ED UTI Cystitis Male Disposition: Home Minutes spent on discharge:: 30 Patient Condition:: Fair Meaningful Use Info Meaningful Use Diagnoses (Choose all that apply): None applicable Code Visit OBSV E&M: 60498 Observation care discharge
[2017-04-26] MEDS: Ceftriaxone 1 GM/50 ML BAG IV (09:05)
--- NOTE | 2017-04-26 09:05 | DS.PCM_ITS ---
Discharge Date and Diagnosis - Problem List Patient Problems: Active and Suspected Problems Hematuria (Acute) Date of Admission: 04/25/17 Date of Discharge: 04/26/17 - Primary Discharge Diagnosis Active and Suspected Problems Hematuria (Acute) (1) Painless Hematuria w/ Right Renal Mass w/ Acute UTI, Unclear Etiology for Renal Mass, Possible Renal Cell Carcinoma, Planned outpatient continued evaluation per Dr. Gray, Urology (2) Elevated Liver Function Tests, Suspected Chronic secondary to EtOH Abuse, Unremarkable Liver US, Hepatitis panel pending upon discharge (3) Tobacco Abuse (4) EtOH Abuse (5) Elevated BP without HTN Dx, Improved - Secondary Discharge Diagnosis Chronic Problems Tobacco use (Chronic) Cannabis use disorder, mild, abuse (Chronic) ETOH abuse (Chronic) Elevated BP without diagnosis of hypertension (Chronic) Renal mass, right (Chronic) Hospital Course and Treatment Imaging Results: 04/26/17 14:30 O.R. Fluoro for C-Arm [RAD] Urgent Dr. Gray Urology Operations: None Procedures: None, - - Cystoscopy per Dr. Gray. Summary of Care Provided: The patient is a 56 y/o M w/ PMHx: Tobacco use, EtOH Abuse, Cannabis usage who does not regular see a physician who presented to the [facility] ED on 04/25/17 with history of painless hematuria x 2 days. In the ED work-up included T 98, HR 70s , BP 150-160s/90-100, RR 17, 98% on RA, CBC w/ WBC 5.9, Hgb 15.2, Plts 189 with increased mono%, normal coags, CMP w/ Alk phos 124, AST/ALT 183/142, UA w/ blood 250, protein 100, > 100 RBC, 10-25 WBC, 0 SEC, 1+ bacteria, CT A/P w/ moderate atrophy of the right kidney with a probable mass, follow-up US w/ multiple bilateral renal cysts, 3.3x2.7x2.5 cm solid mass in the mid lateral portion of the R kidney. The patient was admitted to [place] to complete work-up per Urology/ED request, maintained on IVFs, initiated IV rocephin with planned keflex transition upon discharge, obtained CT A/P with IV contrast as prior performed without contrast to better evaluation renal mass with confirmation of suspicious appearing 3.1 cm solid mass of the lower pole right kidney. 04/26/17 Cystoscopy per Urology performed then planned follow-up outpatient to continue work-up and evaluation for renal mass. During admission noted stable appearing mild Elevated Liver Function Tests, suspected secondary to chronic EtOH abuse history with unremarkable appearing liver US, stable levels. Patient noted routine consumption of at least 6, 12 ounce beers per day thus maintained on CIWA protocol, MVI, thiamine and folic acid. Upon discharge continued vitamin supplementation and encouraged safe sobriety. Additionally, encouraged tobacco cessation, inpatient consultation per RT, NR rx upon discharge. During admission patient with Elevated BP without HTN Dx upon presentation, improved, encouraged PCP re-evaluation and treatment if appropriate. DAY OF DISCHARGE PROGRESS NOTE: Subjective: Patient without acute event overnight per self and nursing report. Patient does report mild flank discomfort otherwise no acute complaints. Patient denies fever, chills, nausea, emesis, abdominal pain or dyspnea. Patient agreeable to discharge to home following planned cystoscopy per Dr. Gray with outpatient further evaluation and work-up of renal mass. Patient will be discharged with follow-up with primary care physician within 3-5 days in addition to Dr. Gray within 1 week. Objective: T 97.7, HR 74, BP 131/95, RR 16, 96% on RA. Physical Examination: General: awake, alert, oriented x 3 and cooperative, seated upright in the bed, NAD. Skin: normal color, turgor, no icterus, cyanosis. HEENT: AT/NC, EOMI, PERRLA, MMM. Lungs: CTA bilaterally, moderate effort, mild decrease BL bases, no rales, ronchi or wheezing; Heart: Regular rate and rhythm; no gallop, rub audible. Abdomen: soft, NTTP, ND, normal BS. Extremities: no cyanosis, clubbing, or edema. Neurological: patient awake, alert, oriented x 3; cognitive function appears intact upon questioning,; pupils equally reactive to light and accomodation; cranial nerves II-XII grossly normal, moving all 4 extremities, strength appropriate. Psychiatric: affect appears normal, no acute evidence of depressive or anxiety feelings. Assessment and Plan: Please see hospital summary above. Discharge Activity: Return to Normal Activity May resume sexual activity in: 1-2 weeks Weight Bearing Status: Weight bearing as tolerated Call your doctor if you observe: Fever of 101 or Higher, Inability to urinate, Inability to have a bowel movement, Shortness of breath, Dizziness, Fainting spells, Chest pain, Uncontrolled pain, - - Increased blood in the urine or clots or sensation of retention of urine. Home Medications: Medications to take at Discharge Amoxicillin [Amoxil] 500 mg PO Q12H #20 capsule 04/26/17 Multivitamins,Ther W-Minerals [Multivitamin With Minerals] 1 tab PO DAILY #30 tab 04/26/17 Nicotine [Nicoderm] 14 mg TRANSDERM. DAILY #14 patch 04/26/17 Vitamin B Complex/Folic Acid [B-Complex Tablet] 0.4 mg PO DAILY #30 tab Following Prescrptions Were Given to Patient: Amoxicillin [Amoxil] 500 mg PO Q12H #20 capsule Multivitamins,Ther W-Minerals [Multivitamin With Minerals] 1 tab PO DAILY #30 tab Nicotine [Nicoderm] 14 mg TRANSDERM. DAILY #14 patch Vitamin B Complex/Folic Acid [B-Complex Tablet] 0.4 mg PO DAILY #30 tab Primary Care Physician: David Rico MD [STAFF PHYSICIAN] - Please follow up with your Primary Care Physician in: Follow-up within 3-5 days to review admission. Please Follow Up With: Jorge Gray MD When: Follow-up within 1 week to review admission, discuss work-up renal mass. Patient Instructions: What is Hematuria?, Hematuria: Possible Causes, Understanding Urinary Tract Infections (UTIs), What Is Kidney (Renal) Cancer?, ED UTI Cystitis Male Disposition: Home Minutes spent on discharge:: 30 Patient Condition:: Fair Meaningful Use Info Meaningful Use Diagnoses (Choose all that apply): None applicable Code Visit OBSV E&M: 18893 Observation care discharge
--- NOTE | 2017-04-26 11:24 | NURSING ---
pt left for surgery. sig other at bedside. report called to perez in [place]
--- NOTE | 2017-04-26 12:13 | PCM.CONS.U ---
Problem List (1) Hematuria Status: Acute Qualifiers: Hematuria type: gross Qualified Code(s): R31.0 - Gross hematuria (2) Renal mass, right Status: Chronic Reason for Consult Date of Consultation: 04/26/17 Reason for Consultation: Right renal mass and gross hematuria History of Present Illness: The patient is a 56 year old male who presented with gross hematuria and a new right renal mass was admitted for further workup. Denies any weight loss or weight change. He does have history of alcohol abuse. Past Medical History Past Medical History (Chronic Problems): Chronic Problems Tobacco use (Chronic) Cannabis use disorder, mild, abuse (Chronic) ETOH abuse (Chronic) Elevated BP without diagnosis of hypertension (Chronic) Renal mass, right (Chronic) Allergies No Known Allergies Allergy (Verified 04/25/17 11:21) Home Medications: Ambulatory Orders Medication Instructions Recorded Amoxicillin [Amoxil] 500 mg PO Q12H #20 capsule 04/26/17 Multivitamins,Ther W-Minerals 1 tab PO DAILY #30 tab 04/26/17 [Multivitamin With Minerals] Nicotine [Nicoderm] 14 mg TRANSDERM. DAILY #14 patch 04/26/17 Vitamin B Complex/Folic Acid 0.4 mg PO DAILY #30 tab 04/26/17 [B-Complex Tablet] Surgical History: colectomy Psychiatric History: No pertinent psych hx Lives: Spouse/ Significant Other Smoking Status: Current every day smoker Tobacco Use: Cigarettes Alcohol: Heavy - 6, 12 ounce beers per day. Drugs: Marijuana - *Family History Maternal History Items: No pertinent history Paternal History Items: Unknown Review of Systems Constitutional: Denies: Chills, Fever, Weight Change HEENT: Denies: Head Aches, Sinus Congestion, Sinus Drainage Cardiovascular: Denies: Chest Pain, Palpitations Respiratory: Denies: Cough, Shortness of breath at rest, Sputum production Gastrointestinal: Denies: Abdominal Pain, Nausea, Vomiting Genitourinary: Reports: Hematuria. Denies: Dysuria Musculoskeletal: Denies: Joint Pain, Joint Tenderness Skin: Denies: Rash, Wounds Neurological: Denies: Numbness, Tingling, Focal weakness Psychiatric: Denies: Anxiety, Depression, Homicidal Ideations, Suicidal Ideations Hematologic/ Lymphatic: Denies: Easy Bruising, Easy Bleeding Physical Exam - Physical Exam Vital Signs Temp 97.8 F 04/26/17 11:00 Pulse 77 04/26/17 11:00 Resp 16 04/26/17 11:00 BP 120/84 H 04/26/17 11:00 Pulse Ox 96 04/26/17 11:00 Intake & Output 04/24/17 04/25/17 04/26/17 23:59 23:59 23:59 Intake Total 2394 / 2394 Output Total 2200 / 2200 Balance 194 / 194 Weight: 72.493 kg 72.493 kg Intake: Oral 550 / 550 IV fluid/meds 1844 / 1844 Output: Urine 2200 / 2200 General: Alert, Oriented x3 HEENT: Atraumatic Oral: Moist Mucosa Neck: Supple Lungs: Normal air movement Cardiovascular: Regular rate, Regular Rhythm Abdomen: Soft, Obese Rectal: Exam deferred Scrotum: No lesions Penis: Circumcised Groin: No hernia Extremities: No clubbing, No cyanosis, No edema Skin: No rashes Musculoskeletal: No Tenderness to Palpation of Joints or Extremities Laboratory Tests Past 24 Hrs 04/25/17 04/25/17 04/25/17 18:17 18:17 18:17 WBC RBC Hgb Hct MCV MCH MCHC RDW RDW Differential Plt Count MPV Immature Gran % (Auto) Neut % (Auto) Lymph % (Auto) [place] % (Auto) Eos % (Auto) Baso % (Auto) Absolute Neuts (auto) Absolute Lymphs (auto) Total Counted Sodium Potassium Chloride Carbon Dioxide Anion Gap BUN Creatinine Estim Creat Clear Calc Est GFR (MDRD) Af Amer Est GFR (MDRD) Non-Af BUN/Creatinine Ratio Glucose Calcium Phosphorus 2.2 L Magnesium 2.0 Total Bilirubin Direct Bilirubin AST ALT Alkaline Phosphatase Total Protein Albumin Globulin Urine Opiates Screen Urine Methadone Screen Ur Barbiturates Screen Ur Phencyclidine Scrn Ur Amphetamines Screen U Methamphetamin-MDMA U Benzodiazepines Scrn Urine Cocaine Screen U Cannabinoids Screen Ur Drug Screen Comment Ethyl Alcohol < 3.0 Hepatitis A IgM Ab Pending Hepatitis A Ab Total Pending Hep Bs Antigen Pending Hep B Core Total Ab Pending Hep B Core IgM Ab Pending Hepatitis C Comment Pending 04/26/17 04/26/17 04/26/17 00:50 05:36 05:36 WBC 3.9 L RBC 3.95 L Hgb 13.5 Hct 38.8 L MCV 98.2 H MCH 34.2 H MCHC 34.8 RDW 13.0 RDW Differential 45.9 H Plt Count 161 MPV 10.4 Immature Gran % (Auto) 0.300 Neut % (Auto) 40.5 L Lymph % (Auto) 32.8 [place] % (Auto) 18.1 H Eos % (Auto) 7.0 H Baso % (Auto) 1.3 H Absolute Neuts (auto) 1.6 L Absolute Lymphs (auto) 1.27 Total Counted Not Reportable Sodium 134 L Potassium 4.5 Chloride 100 Carbon Dioxide 28.0 Anion Gap 6 BUN 12 Creatinine 0.83 Estim Creat Clear Calc 98.43 Est GFR (MDRD) Af Amer 124 Est GFR (MDRD) Non-Af 102 BUN/Creatinine Ratio 14.4 Glucose 97 Calcium 8.0 L Phosphorus Magnesium Total Bilirubin 0.80 Direct Bilirubin 0.17 AST 100 H ALT 148 H Alkaline Phosphatase 93 Total Protein 6.0 L Albumin 2.8 L Globulin 3.2 Urine Opiates Screen POSITIVE H Urine Methadone Screen NEGATIVE Ur Barbiturates Screen NEGATIVE Ur Phencyclidine Scrn NEGATIVE Ur Amphetamines Screen NEGATIVE U Methamphetamin-MDMA NEGATIVE U Benzodiazepines Scrn POSITIVE H Urine Cocaine Screen NEGATIVE U Cannabinoids Screen POSITIVE H Ur Drug Screen Comment Ethyl Alcohol Hepatitis A IgM Ab Hepatitis A Ab Total Hep Bs Antigen Hep B Core Total Ab Hep B Core IgM Ab Hepatitis C Comment Assessment/Plan Active and Suspected Problems Hematuria (Acute) CT scan demonstrates a new mass in the right kidney he has gross hematuria. Plan to do a cystoscopy and evaluation for the cause of the hematuria rule out bladder cancer pathology in the bladder. After procedure he can go home the day and he can call my office for an appointment for follow-up we will send some urine for cytology as well.
--- NOTE | 2017-04-26 12:18 | PCM.DC.URO ---
Discharge Diet: Light diet - advance as tolerated Discharge Activity: Return to Normal Activity, May not drive while taking narcotic pain medications. May resume sexual activity in: 1-2 weeks Weight Bearing Status: Weight bearing as tolerated Call your doctor if you observe: Fever of 101 or Higher, Inability to urinate, Inability to have a bowel movement, Shortness of breath, Dizziness, Fainting spells, Chest pain, Uncontrolled pain, - - Increased blood in the urine or clots or sensation of retention of urine. Instructions: What is Hematuria?, Hematuria: Possible Causes, Understanding Urinary Tract Infections (UTIs), What Is Kidney (Renal) Cancer?, ED UTI Cystitis Male Allergies/Adverse Reactions: Allergies No Known Allergies Allergy (Verified 04/25/17 11:21) Medications to take at Discharge Amoxicillin [Amoxil] 500 mg PO Q12H #20 capsule 04/26/17 Multivitamins,Ther W-Minerals [Multivitamin With Minerals] 1 tab PO DAILY #30 tab 04/26/17 Nicotine [Nicoderm] 14 mg TRANSDERM. DAILY #14 patch 04/26/17 Vitamin B Complex/Folic Acid [B-Complex Tablet] 0.4 mg PO DAILY #30 tab 04/26/17 The following prescriptions were given: Amoxicillin [Amoxil] 500 mg PO Q12H #20 capsule Multivitamins,Ther W-Minerals [Multivitamin With Minerals] 1 tab PO DAILY #30 tab Nicotine [Nicoderm] 14 mg TRANSDERM. DAILY #14 patch Vitamin B Complex/Folic Acid [B-Complex Tablet] 0.4 mg PO DAILY #30 tab Primary Care Physician: David Rico MD [STAFF PHYSICIAN] - Please follow up with your Primary Care Physician in: Follow-up within 3-5 days to review admission. Please Follow Up With: Jorge Gray MD When: please call to make an appointment- in 2-3 weeks. Proposed Discharge Date: 04/26/17
--- NOTE | 2017-04-26 12:42 | OP.PCM_ITS ---
Problem List (1) Hematuria Status: Acute Qualifiers: Hematuria type: gross Qualified Code(s): R31.0 - Gross hematuria (2) Renal mass, right Status: Chronic Report of Operation Date of Procedure: 04/26/17 Pre-Operative Diagnosis: Gross hematuria and right renal mass Post-Operative Diagnosis: Gross hematuria coming from the right kidney, chronic right UPJ obstruction, right renal mass Surgery/Procedure Performed:: Cystoscopy and right retrograde pyelogram urine for cytology Description of Surgical Findings:: 56-year-old male taken back to the operating room at the smooth induction of general anesthesia he was placed in dorsal lithotomy position the penis and testicles were prepped and draped in usual sterile fashion, went into the bladder with a 21 Hungarian rigid cystourethroscope. The entire length of the urethra is normal, fingers normal, prostate was normal, inside the bladder he had blood emanating from the right ureteral orifice, cannulated the right ureteral orifice with a Glidewire and a Pollack catheter advanced up to the kidney, I then obtained urine from the right kidney and this was sent off for cytology. I then did a retrograde pyelogram that demonstrated a normal contour of the ureter with no masses in the ureter and a very hydrodistended and hydronephrotic right kidney from a chronic right UPJ obstruction. Apparently the patient has a new right renal mass is causing some bleeding in the right kidney has a chronic UPJ obstruction and a poorly functioning right kidney. He was awakened taken to the PACU plan will be to do interval right radical nephrectomy in the near future. Type of Anesthesia:: General Drains: none - Admit VTE Documentation VTE Present on Admission: No VTE Mechan Device Prophylaxis: SCD's VTE Pharm Prophylaxis ordered?: No Reason prophylaxis not ordered:: Treatment Not Indicated
[2017-04-26] MEDS: HYDROcodone Bitartrate/Apap 5/325 Tablet PO (13:55)
[2017-04-27 07:10] LABS: HEPATITIS B SURFACE AG Negative (Negative); Hepatitis A AB, Total Positive (Negative); Hepatitis A IgM Antibody Negative (Negative); Hepatitis B Core AB IgM Negative (Negative); Hepatitis B Core Ab Total Negative (Negative); Hepatitis C Ab >11.0 s/co ratio (0.0-0.9)
[2017-04-27 09:00] LABS: Hep B Surface Antibodies Non Reactive (.)
[2017-04-29 15:40] LABS: Cytology, Body Fluid / CSF SEE PATHOLOGY REPORT
== END 2017-04-26 14:00 | disposition home or self-care (01) ==
LOC: ED 14:24 → MS3 16:52
PROVIDERS: Urology; Admitting Provider Family Medicine; Emergency Provider Emergency Medicine; Visit Provider Family Medicine
PROC: (CPT 74450; principal; 2017-04-26 07:20)
DX: R31.0 Gross hematuria (principal); N28.89 Other specified disorders of kidney and ureter; N39.0 Urinary tract infection, site not specified; R03.0 Elevated blood-pressure reading, without diagnosis of hypertension; R79.89 Other specified abnormal findings of blood chemistry; F10.10 Alcohol abuse, uncomplicated; F17.210 Nicotine dependence, cigarettes, uncomplicated; N13.5 Crossing vessel and stricture of ureter without hydronephrosis
CPT/HCPCS: 52005; 36415; 71046; 74176; 74177; 76000; 76705; 76770; 80048; 80053; 80076; 80307; 80320; 81001; 83735; 84100; 85025; 85610; 85730; 86704; 86705; 86706; 86708; 86709; 86803; 87086; 87088; 87340; 88108; 88305; 88313; 93005; 96360; 96361; 96365; 96366; 96375; 99218; 99282; 99406; J3010; J7030; J7050; Q9967; A4216; C1769; G0378; G0480

== ENCOUNTER 2017-05-29 09:43 | Inpatient (IN) | payer OTHER, SELFPAY ==
[2017-05-14 15:19] VITALS: BP 116/81; PULSE 79; RESP 16; TEMP 37.1; O2SAT 95; BMI 24.3
[2017-05-29] VITALS (10 sets, daily range): BP systolic 104–136; BP diastolic 74–99; PULSE 85–105; RESP 14–18; TEMP 36.4–36.9; O2SAT 92–98; BMI 24.3
--- NOTE | 2017-05-29 12:05 | KID_PTH ---
PATIENT: PRASANTH PHAN LOC: [facility]3 U#:[id number] AGE/SX: 57/M ROOM: [facility]319 RE05/29/[address]: Dr. Jorge Gray MD : 1960 BED: 1 DIS: 05/30/2017 SPEC #: [id number] RECD: 05/29/17 16:10 STATUS: YAKELIN RESid #: [id number] LUCIE: 05/29/17 12:[address]: Jorge Gray DEPT: SURGICAL PATHOLOGY RECD BY: Marcos Hernandez ENTERED: 05/30/17 08:06 SP TYPE: KIDNEY OTHR DR: Dr. Slime Foote MD Tissues: Kidney, NOS Procedures: Surgery Specimen Level V HEADER OPERATION: Laparoscopic robotic nephrectomy, radical PRE-OP DIAGNOSIS: Right kidney mass TISSUE SUBMITTED: Right kidney MICROSCOPIC DIAGNOSIS Right kidney, radical nephrectomy: Multifocal papillary renal cell carcinoma. See cancer summary below. KIDNEY CANCER SUMMARY: Procedure ? radical nephrectomy Specimen laterality - right Tumor site ? middle portion of kidney (largest tumor) Tumor size, largest tumor - 2.5 x 2 x 2 cm Tumor focality - multifocal Macroscopic extent of tumor ? tumor limited to kidney Histologic type ? papillary renal cell carcinoma Sarcomatoid features ? not identified Tumor necrosis ? not identified Histologic grade (Cory nuclear grade) - 2 Microscopic tumor extension ? tumor limited to kidney Margins ? margins uninvolved by invasive carcinoma Lymph-Vascular invasion ? not identified Regional lymph nodes ? no lymph nodes submitted or found. Distant metastasis ? not applicable Pathologic findings in nonneoplastic kidney ? multiple benign cysts (largest cyst measures 4 cm in greatest dimension. - Interstitial chronic inflammation and calcification. See comment. PATHOLOGIC STAGE: pT1a(m) Nx Mx The above summary is in compliance with [employer] [employer] (CAP) Cancer Protocols Checklist and [place] [employer] Committee on Cancer (AJCC), Staging Manual, 8th Ed. SJ:rg 4.9 COMMENT The foci of tumor measure <0.1 to 2.5 cm in greatest dimension. The tumor also shows areas of hemorrhage, fibrosis and calcification. Case has been reviewed in consultation with Dr. Rodas who concurs with the above diagnosis. IDC:AM MICROSCOPIC DESCRIPTION Slides are reviewed. GROSS DESCRIPTION Received in fixative is one container labeled with the patient's name and designated right kidney. The specimen consists of a radical nephrectomy specimen consisting of kidney with pericolonic adipose tissue. The specimen weighs 384 gm and measures 19 x 11 x 7 cm. The specimen was previously bisected before weighing by Dr. Rodas. The kidney measures 11 x 6 x 3.5 cm. The specimen is bisected and shows multicystic surface. The cyst measures 1 to 4 cm in greatest dimension. A 1 cm portion of the ureter is noted. No mass lesion is identified in the ureter. The renal pelvis is markedly dilated. A focal bragg nodular mass is noted at the superior pole measuring 0.5 cm in greatest dimension. A second mass is also noted through the periphery of the kidney in the mid portion measuring 2.5 x 2 cm. Sections reveal yellowish cut surfaces. The renal cortex measures <0.1 to 0.5 cm in thickness. The adrenal gland is not identified in the submitted specimen. Sections of perirenal adipose tissue do not reveal any mass lesion. No obvious lymph node tissue is identified. Distributor Of Directories sections are submitted in 12 cassettes as follows: 1 ? vascular and ureteral resection margins, 2 & 3 ? smaller mass with adjacent perirenal adipose tissue, 4-8 ? larger mass including adjacent cystic area and normal renal parenchymal tissue, 9 & 10 ? normal unremarkable renal parenchymal tissue with adjacent cyst, 11 ? renal pelvis, ureter and renal sinus tissue, 12 ? perirenal adipose tissue. / RONAK:treasure 05/31/17 TC:0 CPT: 70002
[2017-05-29] MEDS: Cefazolin 2 GM in 0.9% Normal Saline 100 ML IV (12:56)
--- NOTE | 2017-05-29 15:16 | PCM.OPRPT ---
Report of Operation Date of Procedure: 05/29/17 Pre-Operative Diagnosis: Right renal mass. Post-Operative Diagnosis: same Surgery/Procedure Performed:: right laparoscopic robotic assisted radical nephrectomy Description of Surgical Findings:: 56-year-old male was taken back to the operating room after smooth induction of general anesthesia, he was placed on full flank position, the abdomen was shaved prepped and draped in usual sterile fashion he had a prior midline incision from a open colectomy procedure. In order to avoid this I first used a Veress needle and entered the peritoneal cavity right underneath the rib cage. I insufflated the peritoneal cavity with CO2 gas after creating a pneumoperitoneum I then went in with the visual port and looked back at the midline incision and he had quite extensive adhesions to the midline but fortunately was able to find some space right paramedial space where I could place my ports so I placed my right robotic port my camera port my left robotic port and assistant manager of operations suction port, I then docked the robot and we proceeded with the dissection I first incised the white line of Toldt the colon was reflected off the kidney starting in the mid kidney all the way down to the pelvis I then and reflecting the colon identified a crossing blood vessel and this was clipped. I then got underneath the kidney identified the ureter went down to the psoas muscle elevated the kidney up worked my way along the vena cava and clipped the gonadal vein. I then came along and found the renal artery and this was clipped and then the duodenum was then kocherized off the kidney I then identified the renal vein and the renal vein was clipped and ligated. I then marched up I then a 5 the adrenal gland adrenal gland was spared and was not taken and then I dissected off the lateral aspect of the liver I then went inferiorly and transected through the gonadal vessels to the ureter and the inferior supply to the kidney and then dissected the kidney off the lateral wall dissected the kidney off the superior and then eventually dissected the kidney off the hilum. After the entire kidney was dissected was able to mobilize around we placed a large Endo Catch bag to her camera trocar I then extracted the the the tumor was kidney and tumor were captured in the large bag I then extracted the tumor and kidney by extending my lower incision across the lower abdomen after extracting this I closed the extraction site with interrupted 0 Vicryl stitches after 15 minutes to extract the kidney and stitch back the fascia I checked the hilum there was no major accumulation of blood some minor oozing but nothing serious and then copiously irrigated the area I then checked again there was no bleeding lower the pressure down the 5 mm and there is no bleeding and that this point we closed the camera trocar with a 10 12 Anant Terry stitch and then we took out all the ports closed the incisions with subcuticular stitches patient's anesthetic is currently being reversed. Type of Anesthesia:: General Drains: Reyes. - Admit VTE Documentation VTE Present on Admission: No VTE Mechan Device Prophylaxis: SCD's VTE Pharm Prophylaxis ordered?: No Reason prophylaxis not ordered:: Treatment Not Indicated
[2017-05-29] MEDS: Bupivacaine Mpf 0.5% 30 ML VIAL (15:20)
[2017-05-29] MEDS: 0.9% NaCl Peripheral Flush Adult/Peds IV (17:52)
[2017-05-29] MEDS: 0.45% Normal Saline 1,000 ML 150 ML IV (17:52)
[2017-05-29] MEDS: Morphine 2 MG/ML Syringe IV ×2 (17:53→22:24)
[2017-05-29] MEDS: Ondansetron 4 MG/2 ML Vial IV (18:11)
[2017-05-29] MEDS: HYDROcodone Bitartrate/Apap 5/325 Tablet PO (22:24)
[2017-05-29] MEDS: Docusate Sodium 100 MG Capsule PO (22:25)
[2017-05-30] MEDS: Morphine 2 MG/ML Syringe IV ×4 (00:14→09:19)
[2017-05-30] MEDS: 0.45% Normal Saline 1,000 ML 150 ML IV (05:49)
[2017-05-30 05:52] VITALS: BP 114/75; PULSE 81; RESP 18; TEMP 36.7; O2SAT 98
[2017-05-30] MEDS: Enoxaparin 40 MG/0.4 ML Syringe SC (06:02)
[2017-05-30 07:25] LABS: Hematocrit 42.4 % (40-54); Hemoglobin 14.5 g/dl (13.0-16.5); Mean Corp Hgb Conc 34.2 g/gl (32-36); Mean Corpuscular Hgb 33.1 pg (27.0-32.0); Mean Corpuscular Volume 96.8 fL (80-94); Mean Platelet Vol. 9.8 fl (6.2-12.0); Platelet Count 198 K/mm3 (150-450); RBC Distribution Width CV 12.7 % (11.6-14.6); RBC Distribution Width SD 44.3 fl (35.1-43.9); Red Blood Count 4.38 M/mm3 (4.6-6.2); White Blood Count 13.2 K/mm3 (4.4-11.0)
[2017-05-30 07:26] LABS: Scan Indicated on CBC? Y/N NO
[2017-05-30 07:46] LABS: Anion Gap 8 (5-15); BUN 15 mg/dL (7-18); BUN/Creat Ratio 13.2 RATIO (10-20); Calcium,Total 8.4 mg/dL (8.5-10.1); Chloride 101 mmol/L (98-107); Creatinine, Serum 1.14 mg/dL (0.70-1.30); EST Glomerular Filtration Rate 71 mL/min (>60); Est Glom Filt Rate - Afr Amer 86 mL/min (>60); Estimated Creatinine Clearance 70.83 ml/min; Glucose 123 mg/dL (74-106); Potassium 4.3 mmol/L (3.5-5.1); Sodium Level 137 mmol/L (136-145)
--- NOTE | 2017-05-30 07:52 | DCINST_ITS ---
Discharge Diet: Light diet - advance as tolerated, Soft diet Discharge Activity: May Not Drive, May not drive while taking narcotic pain medications., May Shower Return to work on:: 07/11/17 May shower in (days): 1 Call your doctor if your incision/area has: Continuous Slow Oozing, Sudden Increased Bleeding, Increased Pain/ Swelling, Increased Redness, Foul Smelling Discharge, Swelling at the incision site Call your doctor if you observe: Fever of 101 or Higher, Inability to have a bowel movement, Uncontrolled pain Suture Line Care: Avoid Pulling/Pushing, Avoid Pinching/Bending Instructions: Discharge Instructions for Nephrectomy Allergies/Adverse Reactions: Allergies No Known Allergies Allergy (Verified 05/14/17 14:57) Medications to take at Discharge Hydrocodone Bitart/Apap 5-325 [Casa 5/325] 1 - 2 tablet PO Q4H PRN PRN Lisinopril [Prinivil] 5 mg PO DAILY 05/14/17 Multivitamins,Ther W-Minerals [Multivitamin With Minerals] 1 tablet PO DAILY Vitamin B Complex/Folic Acid [B-Complex Tablet] 0.4 mg PO DAILY 05/14/17 Docusate Sodium [Colace] 100 mg PO BID #20 cap 05/30/17 Oxycodone HCl/Acetaminophen [Percocet 5/325] 1 tab PO Q4H PRN PRN 7 Days #20 tab 05/30/17 The following prescriptions were given: Oxycodone HCl/Acetaminophen [Percocet 5/325] 1 tab PO Q4H PRN PRN 7 Days #20 tab PRN Reason: Pain Docusate Sodium [Colace] 100 mg PO BID #20 cap Primary Care Physician: Slime Foote MD [Primary Care Provider] - Please Follow Up With: Jorge Gray MD When: in 2 weeks, please call to make an appointment.
--- NOTE | 2017-05-30 07:52 | PCM.DC.SUM ---
Discharge Date and Diagnosis Date of Admission: 05/29/17 Date of Discharge: 05/30/17 - Secondary Discharge Diagnosis Chronic Problems Tobacco use (Chronic) Cannabis use disorder, mild, abuse (Chronic) ETOH abuse (Chronic) Elevated BP without diagnosis of hypertension (Chronic) Renal mass, right (Chronic) Hospital Course and Treatment Operations: None, - - Right radical nephrectomy Procedures: None Summary of Care Provided: The patient is a 57 year old male with a solid mass and an atrophic right kidney underwent a right radical nephrectomy on postoperative day #1 abdomen soft and benign if he can tolerate a regular diet patient will be discharged to home tolerating full liquid diet with advancement to regular diet with instructions to continue with a soft bland diet until his bowels resume and I will see him for follow-up in 2 weeks. Discharge Diet: Light diet - advance as tolerated, Soft diet Discharge Activity: May Not Drive, May not drive while taking narcotic pain medications., May Shower Return to work on:: 07/11/17 May shower in (days): 1 Call your doctor if your incision/area has: Continuous Slow Oozing, Sudden Increased Bleeding, Increased Pain/ Swelling, Increased Redness, Foul Smelling Discharge, Swelling at the incision site Call your doctor if you observe: Fever of 101 or Higher, Inability to have a bowel movement, Uncontrolled pain Suture Line Care: Avoid Pulling/Pushing, Avoid Pinching/Bending Home Medications: Medications to take at Discharge Hydrocodone Bitart/Apap 5-325 [Rice 5/325] 1 - 2 tablet PO Q4H PRN PRN 05/14/17 Lisinopril [Prinivil] 5 mg PO DAILY 05/14/17 Multivitamins,Ther W-Minerals [Multivitamin With Minerals] 1 tablet PO DAILY 05/14/17 Vitamin B Complex/Folic Acid [B-Complex Tablet] 0.4 mg PO DAILY 05/14/17 Docusate Sodium [Colace] 100 mg PO BID #20 cap 05/30/17 Oxycodone HCl/Acetaminophen [Percocet 5/325] 1 tab PO Q4H PRN PRN 7 Days #20 tab 05/30/17 Following Prescrptions Were Given to Patient: Oxycodone HCl/Acetaminophen [Percocet 5/325] 1 tab PO Q4H PRN PRN 7 Days #20 tab PRN Reason: Pain Docusate Sodium [Colace] 100 mg PO BID #20 cap Primary Care Physician: Slime Foote MD [Primary Care Provider] - Please Follow Up With: Jorge Gray MD When: in 2 weeks, please call to make an appointment. Patient Instructions: Discharge Instructions for Nephrectomy Medical Necessity - Tobacco Use Smoking Status: Current every day smoker Meaningful Use Info Meaningful Use Diagnoses (Choose all that apply): None applicable
[2017-05-30] MEDS: Vitamin B Comp W-C Capsule 1 CAP PO (09:17)
[2017-05-30] MEDS: Folic Acid 1 MG Tablet 0.5 MG PO (09:17)
[2017-05-30] MEDS: Docusate Sodium 100 MG Capsule PO (09:17)
[2017-05-30] MEDS: Lisinopril 5 MG Tablet PO (09:17)
[2017-05-30] MEDS: Multivitamins,Ther W-Minerals Tablet 1 TABLET PO (09:17)
[2017-05-30 09:20] VITALS: BP 126/86; PULSE 68; RESP 18; TEMP 36.6; O2SAT 97
[2017-05-30] MEDS: 0.9% NaCl Peripheral Flush Adult/Peds IV (09:20)
[2017-05-30 09:25] VITALS: PULSE 84
[2017-05-30 11:51] VITALS: BP 131/93; PULSE 72; RESP 18; TEMP 36.6; O2SAT 97
== END 2017-05-30 12:08 | disposition home or self-care (01) | DRG 658 ==
LOC: ACINP 09:43 → MS3 16:23
PROVIDERS: Admitting Provider Urology; Family Provider Internal Medicine; PCP Internal Medicine; Visit Provider Urology
PROC: 0TT04ZZ Resection of Right Kidney, Percutaneous Endoscopic Approach (ICD-10-PCS; CPT 50546; principal; 2017-05-29 11:45)
DX: D41.01 Neoplasm of uncertain behavior of right kidney (principal); F12.10 Cannabis abuse, uncomplicated; F17.200 Nicotine dependence, unspecified, uncomplicated; I10 Essential (primary) hypertension; H40.9 Unspecified glaucoma; N26.1 Atrophy of kidney (terminal); R31.0 Gross hematuria
CPT/HCPCS: 36415; 80048; 85027; 88307; J7120; A4216; J2405

== ENCOUNTER → 2017-08-09 09:38 | Outpatient (CLI) | payer OTHER, SELFPAY ==
[2017-08-09 11:23] LABS: HIV - WCH Non-Reactive (Nonreactive)
== END ==
PROVIDERS: Family Provider Internal Medicine; PCP Internal Medicine; Visit Provider Internal Medicine Infectious Disease
DX: B18.2 Chronic viral hepatitis C (principal)
CPT/HCPCS: 36415; 86703

== ENCOUNTER → 2017-10-04 09:34 | Outpatient (CLI) | payer OTHER, SELFPAY ==
[2017-10-04 10:24] LABS: Hematocrit 43.9 % (40-54); Hemoglobin 15.3 g/dl (13.0-16.5); Mean Corp Hgb Conc 34.9 g/gl (32-36); Mean Corpuscular Hgb 33.9 pg (27.0-32.0); Mean Corpuscular Volume 97.3 fL (80-94); Mean Platelet Vol. 9.6 fl (6.2-12.0); Platelet Count 254 K/mm3 (150-450); RBC Distribution Width CV 11.9 % (11.6-14.6); RBC Distribution Width SD 42.1 fl (35.1-43.9); Red Blood Count 4.51 M/mm3 (4.6-6.2); White Blood Count 8.6 K/mm3 (4.4-11.0)
[2017-10-04 10:26] LABS: Scan Indicated on CBC? Y/N NO
[2017-10-04 10:54] LABS: AST(SGOT) 34 U/L (15-37); Alanine Aminotransfer ALT/SGPT 57 U/L (16-61); Albumin, Serum 3.6 g/dL (3.2-5.0); Alkaline Phosphatase 92 U/L (45-117); BUN 15 mg/dL (7-18); BUN/Creat Ratio 13.9 RATIO (10-20); Bilirubin, Direct 0.24 mg/dL (0.00-0.30); Calcium,Total 8.9 mg/dL (8.5-10.1); Creatinine, Serum 1.08 mg/dL (0.70-1.30); EST Glomerular Filtration Rate 75 mL/min (>60); Est Glom Filt Rate - Afr Amer 91 mL/min (>60); Glucose 92 mg/dL (74-106); Protein, Total 7.6 g/dL (6.4-8.2); Sodium Level 135 mmol/L (136-145)
[2017-10-04 10:55] LABS: Anion Gap 6 (5-15); Chloride 100 mmol/L (98-107); Potassium 4.4 mmol/L (3.5-5.1)
[2017-10-06 03:05] LABS: HCV Quant. RNA PCR 60 IU/mL (.)
[2017-10-07 11:22] LABS: HCV log 10 1.778 (.)
== END ==
PROVIDERS: Family Provider Nurse Practitioner Primary Care; PCP Nurse Practitioner Primary Care; Visit Provider Internal Medicine Infectious Disease
DX: B18.2 Chronic viral hepatitis C (principal)
CPT/HCPCS: 36415; 80048; 80076; 82105; 85027; 87522

== ENCOUNTER → 2017-11-01 09:32 | Outpatient (CLI) | payer OTHER, SELFPAY ==
[2017-11-01 10:46] LABS: Hematocrit 41.3 % (40-54); Hemoglobin 13.8 g/dl (13.0-16.5); Mean Corp Hgb Conc 33.4 g/gl (32-36); Mean Corpuscular Hgb 33.3 pg (27.0-32.0); Mean Corpuscular Volume 99.5 fL (80-94); Mean Platelet Vol. 9.8 fl (6.2-12.0); Platelet Count 258 K/mm3 (150-450); RBC Distribution Width CV 12.6 % (11.6-14.6); RBC Distribution Width SD 45.8 fl (35.1-43.9); Red Blood Count 4.15 M/mm3 (4.6-6.2); Scan Indicated on CBC? Y/N NO; White Blood Count 6.5 K/mm3 (4.4-11.0)
[2017-11-01 11:38] LABS: AST(SGOT) 68 U/L (15-37); Alanine Aminotransfer ALT/SGPT 62 U/L (16-61); Albumin, Serum 4.1 g/dL (3.2-5.0); Alkaline Phosphatase 78 U/L (45-117); Anion Gap 8 (5-15); BUN 12 mg/dL (7-18); BUN/Creat Ratio 12.1 RATIO (10-20); Bilirubin, Direct 0.21 mg/dL (0.00-0.30); Calcium,Total 9.2 mg/dL (8.5-10.1); Chloride 102 mmol/L (98-107); Creatinine, Serum 0.99 mg/dL (0.70-1.30); EST Glomerular Filtration Rate 83 mL/min (>60); Est Glom Filt Rate - Afr Amer 101 mL/min (>60); Globulin 3.8 g/dL (2.2-4.2); Glucose 93 mg/dL (74-106); Potassium 4.9 mmol/L (3.5-5.1); Protein, Total 7.9 g/dL (6.4-8.2); Sodium Level 138 mmol/L (136-145)
[2017-11-02 09:08] LABS: AFP, Tumor Marker 6.3 ng/mL (0.0-8.3)
== END ==
PROVIDERS: Family Provider Nurse Practitioner Primary Care; PCP Nurse Practitioner Primary Care; Visit Provider Internal Medicine Infectious Disease
DX: B18.2 Chronic viral hepatitis C (principal)
CPT/HCPCS: 36415; 80048; 80076; 82105; 85027

== ENCOUNTER → 2017-12-14 09:23 | Outpatient (CLI) | payer OTHER, SELFPAY ==
--- NOTE | 2017-12-14 09:38 | RAD_ITS ---
STUDY: X-RAY CHEST REASON FOR EXAM: Male, 57 years old. Renal mass and hematuria. TECHNIQUE: Frontal and lateral views of the chest. # of Images: 3 COMPARISON: 04/25/2017. FINDINGS: The lungs are clear and expanded. There is no demonstrated pleural abnormality. Normal size heart. Normal mediastinum and zainba. Normal visualized pulmonary arteries. Normal visualized aortic arch and descending thoracic aorta. There are diffuse degenerative changes of the visualized thoracic spine. Normal visualized ribs, clavicles, and shoulders. There is no demonstrated abnormality of the visualized soft tissue structures of the upper abdomen. RAD/Chest PA and Lateral IMPRESSION: No acute chest disease. Electronically Signed: Norberto Osuna MD at 0:00 EDT , Service support ,
[2017-12-14 10:05] LABS: Hematocrit 43.5 % (40-54); Hemoglobin 14.6 g/dl (13.0-16.5); Mean Corp Hgb Conc 33.6 g/gl (32-36); Mean Corpuscular Hgb 33.5 pg (27.0-32.0); Mean Corpuscular Volume 99.8 fL (80-94); Mean Platelet Vol. 9.1 fl (6.2-12.0); Platelet Count 266 K/mm3 (150-450); RBC Distribution Width SD 47.2 fl (35.1-43.9); Red Blood Count 4.36 M/mm3 (4.6-6.2); White Blood Count 5.6 K/mm3 (4.4-11.0)
[2017-12-14 10:06] LABS: Scan Indicated on CBC? Y/N NO
[2017-12-14 10:30] LABS: AST(SGOT) 62 U/L (15-37); Alanine Aminotransfer ALT/SGPT 84 U/L (16-61); Albumin, Serum 3.8 g/dL (3.2-5.0); Alkaline Phosphatase 91 U/L (45-117); Anion Gap 7 (5-15); BUN 11 mg/dL (7-18); BUN/Creat Ratio 10.8 RATIO (10-20); Calcium,Total 8.9 mg/dL (8.5-10.1); Chloride 101 mmol/L (98-107); Creatinine, Serum 1.02 mg/dL (0.70-1.30); EST Glomerular Filtration Rate 80 mL/min (>60); Est Glom Filt Rate - Afr Amer 97 mL/min (>60); Globulin 3.8 g/dL (2.2-4.2); Glucose 92 mg/dL (74-106); Potassium 4.8 mmol/L (3.5-5.1); Protein, Total 7.6 g/dL (6.4-8.2); Sodium Level 135 mmol/L (136-145)
== END ==
PROVIDERS: Family Provider Nurse Practitioner Primary Care; PCP Nurse Practitioner Primary Care; Referring Provider Urology; Visit Provider Urology
DX: N28.89 Other specified disorders of kidney and ureter (principal); R31.9 Hematuria, unspecified
CPT/HCPCS: 36415; 71046; 80053; 85027

== ENCOUNTER → 2018-04-02 12:07 | Outpatient (CLI) | payer OTHER, SELFPAY ==
[2018-04-04 03:08] LABS: HCV Quant. RNA PCR HCV Not Detected IU/mL (.)
== END ==
PROVIDERS: Family Provider Internal Medicine; PCP Internal Medicine; Referring Provider Internal Medicine Infectious Disease; Visit Provider Internal Medicine Infectious Disease
DX: B18.2 Chronic viral hepatitis C (principal)
CPT/HCPCS: 36415; 87522

== ENCOUNTER → 2018-06-13 17:14 | Outpatient (CLI) | payer OTHER, SELFPAY ==
--- NOTE | 2018-06-13 17:22 | CT_ITS ---
STUDY: CT ABDOMEN AND PELVIS WITH CONTRAST REASON FOR EXAM: Male, 58 years old. Renal cancer, right kidney removed. Follow-up. History of diverticulitis with bowel resection. RADIATION DOSAGE (If Supplied By Facility): CTDIvol = ( 18.36 ) mGy, DLP = ( 1722.37 ) mGycm TECHNIQUE: Transaxial images were obtained from the dome of the diaphragm to the symphysis pubis without oral contrast. 75ml ml of Isovue 300 contrast was administered. Sagittal and coronal images were reconstructed. Individualized dose optimization techniques were used for this CT. COMPARISON: CT abdomen and pelvis 04/25/2017. FINDINGS: Body wall soft tissues: No acute process. Osseous structures: Osteopenia, mild lumbar scoliosis, prominent multilevel lumbar degenerative disc disease with facet hypertrophy, contributing to multilevel foraminal stenosis and mild multilevel spinal canal narrowing. No lytic or blastic lesions. Inferior chest: Hyperlucent lung bases suggesting underlying COPD. Correlate smoking history. Normal distal esophagus. Normal cardiac base. Hepatobiliary: Normal. Pancreas: No acute process. Spleen: Normal. Adrenal glands: Normal. Urogenital: The right kidney is surgically absent. No acute abnormality within the operative bed. Left kidney normal in size, normal cortical thickness, normal nephrogram. Normal collecting system and ureter. Left renal mid polar posterior cortical margin exophytic sharply circumscribed oval cystlike focus, central density of the portal venous phase 42 Hounsfield units, central density on the delayed renal excretory phase 39 Hounsfield units. No change compared to prior imaging and most consistent with a benign Bosniak category 2 hyperdense cyst. Mild circumferential thickening of wall the urinary bladder without significant prostatomegaly. Normal seminal vesicles. Pelvic floor and sidewalls and retroperitoneum: No mass or adenopathy. Vasculature: Moderate atherosclerosis. Stomach: No acute process. Small bowel and mesentery: No acute process. Large bowel: Distal sigmoid anastomosis, evidence of partial bowel resection. No acute large bowel abnormality is evident. Free fluid or free air: None. CT/Abdomen/Pelvis WITH Contrast IMPRESSION: Stable Bosniak category 2 hyperdense cyst of the left kidney. No suspicious enhancing features. No other acute abdominopelvic process is evident. There is no evidence of lymphadenopathy or metastatic disease. Prominent multilevel lumbar spondylosis contributing to multilevel stenosis. Electronically Signed: Napoleon Hancock MD at 18:03 EDT Tel , Service support ,
[2018-06-13 17:35] LABS: CREATININE FINGERSTICK 1.5 mg/dL (0.70-1.30)
== END ==
PROVIDERS: Family Provider Internal Medicine; PCP Internal Medicine; Referring Provider Urology; Visit Provider Urology
DX: C64.9 Malignant neoplasm of unspecified kidney, except renal pelvis (principal)
CPT/HCPCS: 74177; J7030; Q9967; A4216

== ENCOUNTER 2022-12-05 16:52 | Inpatient (IN) | payer OTHER, SELFPAY ==
[2022-12-05 16:53] VITALS: BP 173/109; PULSE 80; RESP 17; TEMP 36.2; O2SAT 98; BMI 28.4
--- NOTE | 2022-12-05 18:37 | EDS_ITS ---
HPI History of Present Illness Chief Complaint: Abd Pain Detail of Chief Complaint: Not feeling well. Decreased urination. Informant: patient Onset/Context/Timing Onset: Today Context: Gradual Onset Timing: Continuous Current Severity: Moderate Maximum Severity: Moderate Narrative Narrative: 62-year-old male history of only one kidney. 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 He has had decreased urination for the last 16 hours. As he just does not feel well. Denies nausea, vomiting or diarrhea. No fever. Normally has no trouble urinating. No history of urinary retention or enlarged prostate. Prior similar symptoms: No Recent Illness/Hospitalization: No PFSH [facility] Medical History (Updated 12/05/22 @ 21:[address] Bay Gandara MD) Cannabis use disorder, mild, abuse Essential (primary) hypertension Hematuria Hepatitis C History of ETOH abuse Nicotine dependence Papillary renal cell carcinoma Perforation of colon Right renal mass Home Medications amlodipine 10 mg tablet 10 mg PO DAILY 07/30/18 [History Last Taken Unknown] metoprolol succinate 50 mg tablet,extended release 24 hr (Toprol XL) 100 mg PO DAILY blood pressure 12/05/22 [History Last Taken Unknown] Allergy/AdvReac Type Severity Reaction Status Date / Time No Known Allergies Allergy Verified 12/05/22 16:53 Surgical History History of carpal tunnel release History of colostomy History of right radical nephrectomy (05/29/17) Social History Smoking Status: Current every day smoker tobacco type: cigarettes Tobacco: How many years used: 45 alcohol intake: current alcohol intake frequency: 3 or more drinks per day Alcohol type: beer substance use type: marijuana ROS ROS ED ROS Narrative Legs. Decreased urination. Review of Systems ROS Unobtainable: Denies due to encephalopathy Constitutional Constitutional ED: Denies chills Eyes Eyes: Denies blurry vision ENT ENT ED: Denies ear pain Cardiovascular Cardiovascular: Denies chest pain or palpitations Respiratory/Chest Respiratory/Chest: Denies cough or dyspnea Gastrointestinal Gastrointestinal: Denies abdominal pain, constipation, diarrhea, melena, nausea or vomiting Genitourinary Genitourinary ED: Denies dysuria, hematuria or urinary frequency Musculoskeletal Musculoskeletal: Denies arthralgias Integumentary Denies abscess Neurologic Neurologic: Denies headache(s) Psychiatric Psychiatric: Denies anxiety Endocrine Endocrinology: Denies cold intolerance Hematologic/Lymphatic Hematologic/Lymphatic: Denies systems reviewed and no addt'l complaints, except as documented, as per HPI, none or anemia Allergic/Immunologic Allergic/Immunologic ED: Denies mouth swelling, tongue swelling or urticaria EXAM Physical Exam Narrative Exam Narrative: 62-year-old male vital signs stable afebrile. Does not look septic or toxic. H EENT exam unremarkable. Neck nontender no JVD. Lungs clear to auscultation. Heart regular rhythm no murmur. Abdomen soft nontender. Normal bowel sounds no peritoneal signs. Moving all 4 extremities. Nontender no edema. Neurologically is awake alert no focal motor deficits. Const Vital Signs: 12/05/22 16:53 Temperature 97.2 F L Temperature Source Temporal Pulse Rate 80 Respiratory Rate 17 Blood Pressure 173/109 H Blood Pressure Mean 130 Pulse Ox 98 Oxygen Delivery Method Room Air Positive well nourished and well developed; Negative for obese, cachectic or contractures General Appearance ED: well developed and NAD; Negative for cachectic, contractures, cyanotic, diaphoretic or pallor Nutritional Appearance: Negative for cachectic or obese HEENT Reports moist mucous membranes Negative for trauma or tenderness Eyes EOMs intact bilaterally General Eye ED: Negative for pale conjunctiva or scleral icterus Neck no lymphadenopathy, supple and no JVD General: Negative for tenderness Lymph Lymphatic: Negative for other Chest Wall inspection of chest normal and palpation of chest normal Chest: Negative for other Resp normal respiratory effort and clear to auscultation bilaterally Effort and Inspection: Negative for retractions Auscultation: Negative for rales, rhonchi or wheezes Cardio regular rate, regular rhythm, S1 normal heart sound, S2 normal heart sound and no murmurs Palpation: Negative for palpable S3 Rate: Negative for bradycardia or tachycardic GI normal to inspection, nondistended, normoactive bowel sounds, non-tender, non- distended and no masses Inspection: Negative for abdominal distention Auscultation: normoactive bowel sounds Palpation: soft; Negative for tender or guarding Back/Spine no CVA tenderness General Back: Negative for CVA tenderness Cervical Spine: Negative for cervical spine tenderness Thoracic Spine / Upper Back: Negative for thoracic spinal tenderness Lumbar Spine / Lower Back: Negative for lumbar spinal tenderness Extremity normal to inspection General Extremety ED: Negative for edema or tenderness General Extremity: Negative for edema Neuro oriented x3 and CN's II-XII intact bilaterally Sensorium / Orientation: alert; Negative for orientation impaired, lethargic or stuporous Sensory Exam: No sensory level loss detected Motor Exam: strength 5/5 throughout; Negative for general weakness Psych mental status grossly normal Attitude: No agitated Mood & Affect: Negative for depressed, anxious or tearful Skin no rashes or lesions noted, no wounds and skin turgor normal General Skin Exam: elasticity normal; Negative for jaundice or pallor Lesions: No lesion noted Rashes: No rashes noted Trauma: Negative for abrasion Wounds: Negative for wounds noted MDM MDM MDM Narrative Medical decision making narrative: 62-year-old male only has 1 kidney. Complaining of decreased urination. Reportedly bladder scan per nursing was 0. That would go against a large prostate and urinary retention. Concern would then be possibly renal failure. Screening labs are being obtained. Met 7:49 PM. Unchanged. Nurse tried to place Reyes catheter there was no urine return. Consistent with his labs of acute renal failure. He will be treated for hyperkalemia with calcium gluconate, aerosol, insulin and dextrose. IV fluids. I will speak to the hospitalist for admission. An EKG is pending. CAT scan of the abdomen without contrast shows hydronephrosis on the left. No hydroureter. No obvious stone. I discussed this with the hospitalist. Also discussed that with Dr. James Gray of urology is familiar with this patient from the past. He did his prior right renal resection. Patient will be admitted by the hospitalist to the telemetry unit treated for hyperkalemia and further evaluation of his acute renal failure. History & Record Review Discussion w/independent historian: Patient Additional record(s) reviewed:: Prior inpatient record, Prior outpatient record, Prior ED visit and Prior labs Lab Data Attestation: I reviewed the patient's lab results. Lab results narrative: CBC shows a white count 10.6. H&H 12.3 and 37. Platelets 188. Electrolytes show sodium 133. Potassium 6.1. Gap is 5 BUN and creatinine are 44 and 6.6 we have no recent labs but compared to prior labs is a significant change in the consistent with acute kidney failure. Glucose is 95. Labs: Laboratory Results - last 24 hr 12/05/22 18:40 WBC 10.6 RBC 3.75 L Hgb 12.3 L Hct 37.2 L MCV 99.2 H MCH 32.8 H MCHC 33.1 RDW Std Deviation 48.6 H RDW Coeff of Nettie 13.3 Plt Count 188 MPV 9.3 Immature Gran % (Auto) 0.400 Neut % (Auto) 60.2 Lymph % (Auto) 24.2 [place] % (Auto) 9.3 Eos % (Auto) 5.0 Baso % (Auto) 0.9 Absolute Neuts (auto) 6.4 Absolute Lymphs (auto) 2.57 Nucleated RBC % 0 Sodium 133 L Potassium 6.1 H* Chloride 106 Carbon Dioxide 22.0 Anion Gap 5 BUN 44 H Creatinine 6.66 H Estim Creat Clear Calc 11.41 Est GFR (MDRD) Af Amer 11 L Est GFR (MDRD) Non-Af 9 L BUN/Creatinine Ratio 6.6 L Glucose 95 Calcium 9.1 Radiography Diagnostic Testing: Clinical Impression(s) from Imaging Studies Abdomen/Pelvis CT 12/05/22 20:03 IMPRESSION: 1. Severe left-sided hydronephrosis without significant distention of the ureter or discrete obstructing stone. Consider proximal obstructing ureteral lesion or UPJ lesion versus congenital stenosis. 2. Status post right nephrectomy. 3. Additional postoperative changes. No additional acute visceral abnormalities. 4. Multilevel degenerative changes in the spine resulting in at least moderate multilevel spinal canal stenosis and moderate to severe multilevel neural foraminal narrowing. Electronically Signed: Benito Lawler DO at 21:39 EDT , Rhythm Strip Rhythm Strip: Sinus Rhythm Rate: 100 Ectopy: None EKG Initial EKG: Attestation: I personally reviewed and interpreted this EKG as follows: Interpretation: Sinus Rhythm and No Acute Injury Pattern Comments: Exam. Rate of 100. Mildly elevated T waves consistent with hyperkalemia. No dysrhythmia. Critical Care Time Critical Care Time: Yes Critical care time (excluding procedures): 30-74 minutes, Including time spent:, Discussing w/Patient &/or Family/Commutator Presser, Discussing w/Consultants, Arranging Admission or Transfer, Performing Direct Patient Care at Bedside and - (33 min) Discharge Plan Dx/Rx/DC Orders Clinical Impression: Acute kidney failure, Acute hyperkalemia, Hydronephrosis Disposition Disposition: [facility]
[2022-12-05 18:51] LABS: Absolute Lymphocyte Count 2.57 X10^3/uL (0.83-4.51); Absolute Neutrophil Count 6.4 X10^3/uL (2.0-7.7); Basophil% 0.9 % (0-1); Eosinophil# 0.53 X10^3/uL; Hematocrit 37.2 % (40-54); Hemoglobin 12.3 g/dL (13.0-16.5); Lymphocyte # 2.57 X10^3/ul (0.83-4.51); Lymphocyte % 24.2 % (19-41); Mean Corp Hgb Conc 33.1 g/dL (32-36); Mean Corpuscular Hgb 32.8 pg (27.0-32.0); Mean Corpuscular Volume 99.2 fL (80-94); Mean Platelet Vol. 9.3 fl (6.2-12.0); Monocyte# 0.99 X10^3/uL; Monocyte% 9.3 % (0-10); NRBC Flagged by Analyzer 0 % (0-5); Neutrophil # 6.38 X10^3/uL (2.7-7.7); Neutrophil % 60.2 % (47-70); Platelet Count 188 K/mm3 (150-450); RBC Distribution Width CV 13.3 % (11.6-14.6); RBC Distribution Width SD 48.6 fl (35.1-43.9); Red Blood Count 3.75 M/mm3 (4.6-6.2); White Blood Count 10.6 K/mm3 (4.4-11.0)
--- NOTE | 2022-12-05 19:24 | ED.RN ---
NO URINE RETURN WITH STRAIGHT CATH. NOTIFIED
[2022-12-05 19:44] LABS: Anion Gap 5 (5-15); BUN 44 mg/dL (7-18); BUN/Creat Ratio 6.6 RATIO (10-20); Calcium,Total 9.1 mg/dL (8.5-10.1); Chloride 106 mmol/L (98-107); Creatinine, Serum 6.66 mg/dL (0.70-1.30); EST Glomerular Filtration Rate 9 mL/min (>60); Est Glom Filt Rate - Afr Amer 11 mL/min (>60); Estimated Creatinine Clearance 11.41 ml/min; Glucose 95 mg/dL (74-106); Potassium 6.1 mmol/L (3.5-5.1); Sodium Level 133 mmol/L (136-145)
--- NOTE | 2022-12-05 19:46 | EKG12_ITS ---
Test Reason : DYSRHYTHMIA Blood Pressure : / mmHG Vent. Rate : 100 BPM Atrial Rate : 100 BPM P-R Int : 176 ms QRS Dur : 064 ms QT Int : 328 ms P-R-T Axes : 063 010 061 degrees QTc Int : 423 ms Sinus rhythm with frequent Premature ventricular complexes Septal infarct (cited on or before 25-APR-2017) Abnormal ECG Confirmed by RUEL RODRIGUEZ, MINNA ([id number]), editorial intern PEE TOMPKINS ([id number]) on 12/10/2022 2:02:02 PM Referred By: Confirmed By:MINNA LIPSCOMB MD
--- NOTE | 2022-12-05 20:03 | CT_ITS ---
EXAM: CT ABDOMEN AND PELVIS WITHOUT INTRAVENOUS CONTRAST CLINICAL INDICATION: left flank pain and renal failure TECHNIQUE: Helically acquired images were obtained of the abdomen and pelvis without intravenous contrast. This CT exam was performed using one or more of the following dose reduction techniques: automated exposure control, adjustment of the mA and/or kV according to patient size, and/or use of iterative reconstruction technique. COMPARISON: No relevant prior studies available. FINDINGS: LOWER THORAX: No significant abnormality. Lung bases are clear. No cardiomegaly. No significant pericardial effusion. ABDOMEN: LIVER: No significant abnormality. Homogeneous. GALLBLADDER AND BILE DUCTS: No significant abnormality. No calcified gallstones. No gallbladder distention or wall edema. No intra- or extrahepatic biliary ductal dilation. PANCREAS: No significant abnormality. No focal cystic mass. SPLEEN: No significant abnormality. Normal size without focal cystic or solid mass. ADRENALS: No significant abnormality. No nodules. KIDNEYS AND URETERS: Severe left-sided hydronephrosis without significant distention of the ureter or discrete obstructing stone. Findings suggest congenital UPJ stenosis. Status post right nephrectomy. Left renal cyst for which no follow-up is indicated. STOMACH AND BOWEL: Distal colonic bowel anastomosis. No stomach or bowel distention. No focal inflammatory change. PELVIS: APPENDIX: Findings consistent with prior appendectomy. BLADDER: No significant abnormality. REPRODUCTIVE: Normal as visualized. No mass. ABDOMEN and PELVIS: INTRAPERITONEAL SPACE: No significant abnormality. No ascites or other fluid collection. No free air. BONES/JOINTS: Multilevel degenerative changes in the spine resulting in at least moderate multilevel spinal canal stenosis and moderate to severe multilevel neural foraminal narrowing. No suspicious lytic or blastic abnormality. SOFT TISSUES: No significant abnormality. No discrete abdominal or pelvic wall hernia. VASCULATURE: Atherosclerosis. Abdominal aorta is non-dilated. LYMPH NODES: No significant abnormality. No enlarged lymph nodes. CT/Abdomen/Pelvis without Cont IMPRESSION: 1. Severe left-sided hydronephrosis without significant distention of the ureter or discrete obstructing stone. Consider proximal obstructing ureteral lesion or UPJ lesion versus congenital stenosis. 2. Status post right nephrectomy. 3. Additional postoperative changes. No additional acute visceral abnormalities. 4. Multilevel degenerative changes in the spine resulting in at least moderate multilevel spinal canal stenosis and moderate to severe multilevel neural foraminal narrowing. Electronically Signed: Benito Lawler DO at 21:39 EDT ,
[2022-12-05 20:05] VITALS: PULSE 99; RESP 18
[2022-12-05] MEDS: Albuterol 2.5 MG/3 ML VIAL.NEB. 10 MG INHALATION (20:05)
[2022-12-05] MEDS: 0.9% Normal Saline (1000mL) 1,000 ML 999 ML IV (20:15)
[2022-12-05] MEDS: Dextrose 50%-Water 25 GM/50 ML DISP.SYRIN IV (20:16)
[2022-12-05] MEDS: Calcium Gluconate IV 3 GM in Syringe 1 EACH IV (20:20)
--- NOTE | 2022-12-05 20:20 | PCM.HP.STD ---
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 Associated with symptom is shakiness. At the emergency department patient was found to have hyperkalemia and he received treatment for it. Reyes catheter was placed and patient did not have any urine output. [facility] Medical History Cannabis use disorder, mild, abuse Essential (primary) hypertension Hematuria Hepatitis C History of ETOH abuse Nicotine dependence Papillary renal cell carcinoma Perforation of colon Right renal mass Home Medications amlodipine 10 mg tablet 10 mg PO DAILY 07/30/18 [History Last Taken Unknown] metoprolol succinate 50 mg tablet,extended release 24 hr (Toprol XL) 100 mg PO DAILY blood pressure 12/05/22 [History Last Taken Unknown] Allergy/AdvReac Type Severity Reaction Status Date / Time No Known Allergies Allergy Verified 12/05/22 16:53 Surgical History History of carpal tunnel release History of colostomy History of right radical nephrectomy (05/29/17) Social History Smoking Status: Current every day smoker tobacco type: cigarettes Tobacco: How many years used: 45 alcohol intake: current alcohol intake frequency: 3 or more drinks per day Alcohol type: beer substance use type: marijuana ROS ROS Narrative Pertinent positives and pertinent negatives as noted in HPI. All other systems were reviewed and are negative Vital Signs Vital Signs Vital Signs: 12/05/22 16:53 Temperature 97.2 F L Temperature Source Temporal Pulse Rate 80 Respiratory Rate 17 Blood Pressure 173/109 H Blood Pressure Mean 130 Pulse Ox 98 Oxygen Delivery Method Room Air Weight Weight: 84.912 kg Body Mass Index (BMI) 28.4 Physical Exam Narrative Physical exam: General: Well-nourished, well-developed. Head: Normocephalic, atraumatic, no tenderness Eyes: Vision is grossly intact. EOMI ENT, no trauma, moist mucous membranes, no rhinorrhea Neck: Nontender, No thyromegaly. CVS: Regular rate and rhythm. S1-S2 present. No murmur, gallop or rub. Respiratory : clear to auscultation bilaterally, chest wall nontender Abdomen: Soft, distended abdomen, normal bowel sounds : Deferred Extremities: Nontender full range of motion, no trauma Skin: Normal color, no trauma, abrasions Neuro: Alert, oriented, cranial nerves II through XII grossly intact. Psychiatry: Normal mood. Normal affect. Not depressed. Not anxious. Results Lab / Micro Data 12/06/22 04:19 12/06/22 04:19 Labs: Laboratory Results - last 24 hr 12/05/22 18:40: WBC 10.6, RBC 3.75 L, Hgb 12.3 L, Hct 37.2 L, MCV 99.2 H, MCH 32.8 H, MCHC 33.1, RDW Std Deviation 48.6 H, RDW Coeff of Nettie 13.3, Plt Count 188, MPV 9.3, Immature Gran % (Auto) 0.400, Neut % (Auto) 60.2, Lymph % (Auto) 24.2, Bertie % (Auto) 9.3, Eos % (Auto) 5.0, Baso % (Auto) 0.9, Absolute Neuts (auto) 6.4, Absolute Lymphs (auto) 2.57, Nucleated RBC % 0, Sodium 133 L, Potassium 6.1 H*, Chloride 106, Carbon Dioxide 22.0, Anion Gap 5, BUN 44 H, Creatinine 6.66 H, Estim Creat Clear Calc 11.41, Est GFR (MDRD) Af Amer 11 L, Est GFR (MDRD) Non-Af 9 L, BUN/Creatinine Ratio 6.6 L, Glucose 95, Calcium 9.1 Rhythm Strip Rhythm Strip: Sinus Rhythm Rate: 100 Ectopy: None Assessment & Plan Assessment/Plan (1) Acute hyperkalemia: (2) Acute kidney failure: (3) Inability to urinate: (4) Nicotine dependence: PLAN: Plan Inability to urinate/LEN Creatinine on presentation was 6.66. BUN is 45. BUN over creatinine is 6.1. Suspect obstructive uropathy. Discussed with ED doctor who will order a CAT scan of the abdomen and pelvis. Urology consult. Continue IV hydration. Alcoholism Reportedly he drinks about 12 of 12 ounce beer every Saturday; and 12 ounce beer every Saturday. However last time he drank was 10/14/2022. At that time he drank 4 of 12 ounce beers. However he is adamant that he will not go into withdrawal. Will place patient on CIWA protocol with as needed Ativan. Thiamine and folic acid ordered. Macrocytic anemia Unclear chronic or acute. His hemoglobin on presentation was 12.3. His hemoglobin in 2018 (which is the only one on record at our hospital) was at least 13.8. Trend CBC. Hypertension Blood pressure was not within goal on presentation. Home metoprolol continued. Trend. Time spent in the patient's overall evaluation,decision-making process, review of diagnostic data, adjustment of management, discussion with other providers, nursing nursing and ancillary staff involved in patient's care documentation, 45 minutes. Charges/Coding Visit Charges Inpatient E&M: 17042 Init Hosp L2
[2022-12-05] MEDS: Insulin Lispro 10 UNIT in Syringe 0 ML 6 UNIT IV (20:25)
[2022-12-05] MEDS: morphine 8 MG/ML Syringe 6 MG IV (20:33)
[2022-12-05] MEDS: Ondansetron 4 MG/2 ML Vial IV (20:33)
[2022-12-05] MEDS: Sodium Bicarbonate 150 MEQ in Dextrose 5%-Water (1000mL Bag) 1,000 ML 250 MEQ IV (20:38)
[2022-12-05 21:20] VITALS: BMI 28.0
[2022-12-05 21:34] VITALS: BP 155/105; PULSE 117; RESP 18; TEMP 36.6; O2SAT 97
[2022-12-05] MEDS: 0.9% Normal Saline (1000mL) 1,000 ML 125 ML IV (22:35)
[2022-12-05] MEDS: Heparin Injection (Vial) 5,000 UNIT/ML VIAL 5000 UNIT SC (22:41)
[2022-12-06] VITALS (16 sets, daily range): BP systolic 104–157; BP diastolic 71–114; PULSE 92–110; RESP 16–20; TEMP 36.4–37.6; O2SAT 92–96; BMI 28.0
[2022-12-06 00:53] LABS: Anion Gap 7 (5-15); BUN 45 mg/dL (7-18); BUN/Creat Ratio 6.5 RATIO (10-20); Calcium,Total 8.8 mg/dL (8.5-10.1); Chloride 104 mmol/L (98-107); Creatinine, Serum 6.93 mg/dL (0.70-1.30); EST Glomerular Filtration Rate 9 mL/min (>60); Est Glom Filt Rate - Afr Amer 11 mL/min (>60); Estimated Creatinine Clearance 10.97 ml/min; Glucose 150 mg/dL (74-106); Potassium 4.7 mmol/L (3.5-5.1); Sodium Level 135 mmol/L (136-145)
[2022-12-06 04:29] LABS: Absolute Lymphocyte Count 2.22 X10^3/uL (0.83-4.51); Absolute Neutrophil Count 4.1 X10^3/uL (2.0-7.7); Basophil# 0.06 X10^3/uL; Basophil% 0.8 % (0-1); Eosinophil# 0.32 X10^3/uL; Eosinophils% 4.2 % (0-5); Hematocrit 32.9 % (40-54); Hemoglobin 10.6 g/dL (13.0-16.5); Lymphocyte # 2.22 X10^3/ul (0.83-4.51); Lymphocyte % 29.4 % (19-41); Mean Corp Hgb Conc 32.2 g/dL (32-36); Mean Corpuscular Hgb 32.4 pg (27.0-32.0); Mean Corpuscular Volume 100.6 fL (80-94); Mean Platelet Vol. 9.1 fl (6.2-12.0); Monocyte# 0.84 X10^3/uL; Monocyte% 11.1 % (0-10); NRBC Flagged by Analyzer 0 % (0-5); Neutrophil % 54.2 % (47-70); Platelet Count 149 K/mm3 (150-450); RBC Distribution Width CV 13.4 % (11.6-14.6); RBC Distribution Width SD 50.2 fl (35.1-43.9); Red Blood Count 3.27 M/mm3 (4.6-6.2); White Blood Count 7.6 K/mm3 (4.4-11.0)
[2022-12-06 05:18] LABS: Anion Gap 7 (5-15); BUN 45 mg/dL (7-18); BUN/Creat Ratio 6.1 RATIO (10-20); Calcium,Total 8.8 mg/dL (8.5-10.1); Chloride 103 mmol/L (98-107); Creatinine, Serum 7.35 mg/dL (0.70-1.30); EST Glomerular Filtration Rate 8 mL/min (>60); Est Glom Filt Rate - Afr Amer 10 mL/min (>60); Estimated Creatinine Clearance 10.34 ml/min; Glucose 94 mg/dL (74-106); Potassium 4.8 mmol/L (3.5-5.1); Sodium Level 137 mmol/L (136-145)
[2022-12-06] MEDS: Heparin Injection (Vial) 5,000 UNIT/ML VIAL 5000 UNIT SC ×3 (05:51→20:24)
--- NOTE | 2022-12-06 07:14 | HP.PCM_ITS ---
[facility] - General General Date of Admission: 12/05/22 Chief Complaint: Inability to urinate HPI Narrative PRASANTH PHAN, is a 62 M who presents to the hospital with the inability to urinate. Patient has a pertinent history of multifocal renal cell carcinoma papillary type and required a nephrectomy at the time it was deemed not feasible to do a partial nephrectomy given the fact that the papillary tumors were multifocal so he had a nephrectomy back in 2018. Since then the patient is then lost to follow-up to me. Now he presents to the hospital with the inability urinate Reyes catheter was placed and no urine came out he had a CT scan done that demonstrates new left hydronephrosis but on the CAT scan it is impossible to tell was the cause of the hydro I do not see any clear stones and clear masses. He does have significant hydronephrosis no urine output his creatinine is up to 7 it was 6.3 last night and he also had hyperkalemia last night. He is n.p.o. for surgery we will plan to take him to surgery today for cystoscopy evaluation of bladder and placement of a stent on the left side to hopefully improve his kidney function. [facility] Medical History Cannabis use disorder, mild, abuse Essential (primary) hypertension Hematuria Hepatitis C History of ETOH abuse Nicotine dependence Papillary renal cell carcinoma Perforation of colon Right renal mass Home Medications amlodipine 10 mg tablet 10 mg PO DAILY 07/30/18 [History Last Taken Unknown] metoprolol succinate 50 mg tablet,extended release 24 hr (Toprol XL) 100 mg PO DAILY blood pressure 12/05/22 [History Last Taken Unknown] Allergy/AdvReac Type Severity Reaction Status Date / Time No Known Allergies Allergy Verified 12/05/22 16:53 Surgical History History of carpal tunnel release History of colostomy History of right radical nephrectomy (05/29/17) Social History Smoking Status: Current every day smoker tobacco type: cigarettes Tobacco: How many years used: 45 alcohol intake: current alcohol intake frequency: 3 or more drinks per day Alcohol type: beer substance use type: marijuana ROS Constitutional Constitutional: Denies chills, fever(s) or malaise Eyes Eyes: Denies blurry vision or change in vision ENT HEENT: Reports none Cardiovascular Cardiovascular: Denies chest pain or palpitations Respiratory/Chest Respiratory/Chest: Denies cough or shortness of breath with exertion Gastrointestinal Gastrointestinal: Denies abdominal pain, constipation or diarrhea Musculoskeletal Musculoskeletal: Denies back pain, joint stiffness or joint swelling Integumentary Integumentary: Denies dry skin, jaundice, lesions or rash Neurologic Neurologic: Denies confusion, syncope or weakness Psychiatric Psychiatric: Reports none; Denies anxiety or depression Endocrine Endocrinology: Denies excessive sweating, fatigue or flushing Hematologic/Lymphatic Hematologic/Lymphatic: Denies anemia, easy bleeding or easy bruising Vital Signs Vital Signs Vital Signs: 12/05/22 16:53 12/05/22 21:34 12/05/22 22:00 Temperature 97.2 F L 97.8 F Temperature Source Temporal Oral Pulse Rate 80 117 H Pulse Strength Respiratory Rate 17 18 Respiratory Effort Normal Non-Labored Respiratory Depth Normal Respiratory Pattern Normal Blood Pressure 173/109 H 155/105 H Blood Pressure Mean 130 121 Blood Pressure Source Monitor Blood Pressure Position Semi-Fowlers Blood Pressure Location Left Arm Pulse Ox 98 97 Oxygen Delivery Method Room Air Room Air Room Air 12/05/22 20:05 12/05/22 22:45 12/06/22 00:30 Temperature 97.8 F Temperature Source Oral Pulse Rate 99 103 H Pulse Strength Normal (2+) Respiratory Rate 18 18 Respiratory Effort Respiratory Depth Respiratory Pattern Normal Blood Pressure 123/78 H Blood Pressure Mean 93 Blood Pressure Source Monitor Blood Pressure Position Semi-Fowlers Blood Pressure Location Right Arm Pulse Ox 95 Oxygen Delivery Method Room Air 12/06/22 02:00 12/06/22 04:00 12/06/22 04:40 Temperature 97.6 F L 97.7 F L Temperature Source Oral Oral Pulse Rate 99 94 Pulse Strength Respiratory Rate 18 18 Respiratory Effort Normal Non-Labored Respiratory Depth Normal Respiratory Pattern Normal Blood Pressure 104/71 113/78 Blood Pressure Mean 82 89 Blood Pressure Source Monitor Monitor Blood Pressure Position Semi-Fowlers Semi-Fowlers Blood Pressure Location Right Arm Right Arm Pulse Ox 95 95 Oxygen Delivery Method Room Air Room Air Room Air 12/06/22 04:36 12/06/22 06:00 Temperature 98.0 F Temperature Source Oral Pulse Rate 92 Pulse Strength Respiratory Rate 18 Respiratory Effort Respiratory Depth Respiratory Pattern Blood Pressure 119/77 Blood Pressure Mean 91 Blood Pressure Source Monitor Blood Pressure Position Semi-Fowlers Blood Pressure Location Right Arm Pulse Ox 95 96 Oxygen Delivery Method Room Air Room Air Weight Weight: 83.5 kg Body Mass Index (BMI) 28.0 Physical Exam Const alert and oriented x3 General Appearance: cooperative HEENT normocephalic, head/scalp atraumatic, EAC's normal and TM's normal bilaterally Eyes PERRL and EOMs intact bilaterally Pupil: sluggish Neck no lymphadenopathy, supple and no JVD General: trachea midline Lymph Lymphatic: no lymphadenopathy noted, lymphedema and lymphadenopathy Resp normal respiratory effort, normal air movement and clear to auscultation bilaterally Cardio regular rate, regular rhythm and peripheral pulses 2+ throughout GI soft to palpation, non-tender and non-distended Extremity normal capillary refill and no clubbing, cyanosis or edema General Extremity: no tenderness to palpation of joints or extremities Skin no rashes or lesions noted General Skin Exam: turgor normal Lesions: no lesions Rashes: no rashes Neuro CN's II-XII intact bilaterally Speech: speech normal Motor Exam: strength 5/5 throughout; Negative for general weakness Psych thought process normal, cooperative and affect normal Appearance: appropriate Results Medical Records Data Attestation: I reviewed the patient's medical records Lab / Micro Data 12/06/22 04:19 12/06/22 04:19 Labs: Laboratory Results - last 24 hr 12/05/22 18:40: WBC 10.6, RBC 3.75 L, Hgb 12.3 L, Hct 37.2 L, MCV 99.2 H, MCH 32.8 H, MCHC 33.1, RDW Std Deviation 48.6 H, RDW Coeff of Nettie 13.3, Plt Count 188, MPV 9.3, Immature Gran % (Auto) 0.400, Neut % (Auto) 60.2, Lymph % (Auto) 24.2, Hood % (Auto) 9.3, Eos % (Auto) 5.0, Baso % (Auto) 0.9, Absolute Neuts (auto) 6.4, Absolute Lymphs (auto) 2.57, Nucleated RBC % 0, Sodium 133 L, Potassium 6.1 H*, Chloride 106, Carbon Dioxide 22.0, Anion Gap 5, BUN 44 H, Creatinine 6.66 H, Estim Creat Clear Calc 11.41, Est GFR (MDRD) Af Amer 11 L, Est GFR (MDRD) Non-Af 9 L, BUN/Creatinine Ratio 6.6 L, Glucose 95, Calcium 9.1 12/06/22 00:30: Sodium 135 L, Potassium 4.7, Chloride 104, Carbon Dioxide 24.0, Anion Gap 7, BUN 45 H, Creatinine 6.93 H, Estim Creat Clear Calc 10.97, Est GFR (MDRD) Af Amer 11 L, Est GFR (MDRD) Non-Af 9 L, BUN/Creatinine Ratio 6.5 L, Glucose 150 H, Calcium 8.8 12/06/22 04:19: WBC 7.6, RBC 3.27 L, Hgb 10.6 L, Hct 32.9 L, MCV 100.6 H, MCH 32.4 H, MCHC 32.2, RDW Std Deviation 50.2 H, RDW Coeff of Nettie 13.4, Plt Count 149 L, MPV 9.1, Immature Gran % (Auto) 0.300, Neut % (Auto) 54.2, Lymph % (Auto) 29.4, Hood % (Auto) 11.1 H, Eos % (Auto) 4.2, Baso % (Auto) 0.8, Absolute Neuts (auto) 4.1, Absolute Lymphs (auto) 2.22, Nucleated RBC % 0, Sodium 137, Potassium 4.8, Chloride 103, Carbon Dioxide 27.0, Anion Gap 7, BUN 45 H, Creatinine 7.35 H, Estim Creat Clear Calc 10.34, Est GFR (MDRD) Af Amer 10 L, Est GFR (MDRD) Non-Af 8 L, BUN/Creatinine Ratio 6.1 L, Glucose 94, Calcium 8.8 Rhythm Strip Rhythm Strip: Sinus Rhythm Rate: 100 Ectopy: None Radiology Impression Abdomen/Pelvis CT 12/05/22 20:03 IMPRESSION: 1. Severe left-sided hydronephrosis without significant distention of the ureter or discrete obstructing stone. Consider proximal obstructing ureteral lesion or UPJ lesion versus congenital stenosis. 2. Status post right nephrectomy. 3. Additional postoperative changes. No additional acute visceral abnormalities. 4. Multilevel degenerative changes in the spine resulting in at least moderate multilevel spinal canal stenosis and moderate to severe multilevel neural foraminal narrowing. Electronically Signed: Benito VMarisol Lawler, at 21:39 EDT , Assessment & Plan Assessment/Plan (1) Hydronephrosis: PLAN: 62-year-old male with new onset hydronephrosis acute renal failure history of multifocal papillary renal cell carcinoma in the past. Plan to take the surgery this morning called the OR for a stat case they came at 10:00 time as a first available for an emergency and we will plan for cystoscopy and left stent placement.
--- NOTE | 2022-12-06 07:42 | PCM.PN.HOSP ---
Reason for Visit Reason for Visit: Urinary retention Subjective Subjective Mr. 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 He reported he not been able to urinate all day on the day of presentation and had associated shakiness. Vital signs demonstrated temperature of 97.2, heart rate 80, blood pressure 173/109 with repeat at 123/78, respirate 17 oxygen saturations were 98% on room air. CBC showed a normal white count with no left shift, mild macrocytic anemia with a hemoglobin of 12.3 and normal platelet count. Chemistry panel revealed a sodium of 133, potassium of 6.1 BUN of 44 and serum creatinine of 6.66 but was otherwise unremarkable. It did not identify any distention of the ureter or discrete obstructing stone and also showed multilevel degenerative changes in the spine. They are to omid the case with Dr. Milton who is familiar from the patient from previous evaluation and he requested admission with plans to take him to the OR today. I was able to evaluate the patient postoperatively. The patient was very ecstatic as he was able to urinate now. Stent was placed and he was feeling much better. He did indicate he was hungry and asked if we could feed him. Objective Data Objective Data Vital Signs: Vital Signs Temp Pulse Resp BP Pulse Ox O2 Del Method 98.0 F 92 18 119/77 96 Room Air 12/06/22 06:00 12/06/22 06:00 12/06/22 06:00 12/06/22 06:00 12/06/22 06:00 12/06/22 06:00 Oxygen Delivery Method Room Air Weight: 83.5 kg Body Mass Index (BMI) 28.0 Intake & Output: Intake and Output for Last 24 Hours 12/04/22 12/05/22 12/06/22 23:59 23:59 23:59 Intake Total 1057.08 / 1277.08 1614.25 / 1614.25 Balance 1057.08 / 1277.08 1614.25 / 1614.25 Lab / Micro Data 12/06/22 04:19 12/06/22 12:30 Labs: Laboratory Results - last 24 hr 12/05/22 18:40: WBC 10.6, RBC 3.75 L, Hgb 12.3 L, Hct 37.2 L, MCV 99.2 H, MCH 32.8 H, MCHC 33.1, RDW Std Deviation 48.6 H, RDW Coeff of Nettie 13.3, Plt Count 188, MPV 9.3, Immature Gran % (Auto) 0.400, Neut % (Auto) 60.2, Lymph % (Auto) 24.2, [place] % (Auto) 9.3, Eos % (Auto) 5.0, Baso % (Auto) 0.9, Absolute Neuts (auto) 6.4, Absolute Lymphs (auto) 2.57, Nucleated RBC % 0, Sodium 133 L, Potassium 6.1 H*, Chloride 106, Carbon Dioxide 22.0, Anion Gap 5, BUN 44 H, Creatinine 6.66 H, Estim Creat Clear Calc 11.41, Est GFR (MDRD) Af Amer 11 L, Est GFR (MDRD) Non-Af 9 L, BUN/Creatinine Ratio 6.6 L, Glucose 95, Calcium 9.1 12/06/22 00:30: Sodium 135 L, Potassium 4.7, Chloride 104, Carbon Dioxide 24.0, Anion Gap 7, BUN 45 H, Creatinine 6.93 H, Estim Creat Clear Calc 10.97, Est GFR (MDRD) Af Amer 11 L, Est GFR (MDRD) Non-Af 9 L, BUN/Creatinine Ratio 6.5 L, Glucose 150 H, Calcium 8.8 12/06/22 04:19: WBC 7.6, RBC 3.27 L, Hgb 10.6 L, Hct 32.9 L, MCV 100.6 H, MCH 32.4 H, MCHC 32.2, RDW Std Deviation 50.2 H, RDW Coeff of Nettie 13.4, Plt Count 149 L, MPV 9.1, Immature Gran % (Auto) 0.300, Neut % (Auto) 54.2, Lymph % (Auto) 29.4, [place] % (Auto) 11.1 H, Eos % (Auto) 4.2, Baso % (Auto) 0.8, Absolute Neuts (auto) 4.1, Absolute Lymphs (auto) 2.22, Nucleated RBC % 0, Sodium 137, Potassium 4.8, Chloride 103, Carbon Dioxide 27.0, Anion Gap 7, BUN 45 H, Creatinine 7.35 H, Estim Creat Clear Calc 10.34, Est GFR (MDRD) Af Amer 10 L, Est GFR (MDRD) Non-Af 8 L, BUN/Creatinine Ratio 6.1 L, Glucose 94, Calcium 8.8 Radiography Diagnostic Testing: Radiology Impression Abdomen/Pelvis CT 12/05/22 20:03 IMPRESSION: 1. Severe left-sided hydronephrosis without significant distention of the ureter or discrete obstructing stone. Consider proximal obstructing ureteral lesion or UPJ lesion versus congenital stenosis. 2. Status post right nephrectomy. 3. Additional postoperative changes. No additional acute visceral abnormalities. 4. Multilevel degenerative changes in the spine resulting in at least moderate multilevel spinal canal stenosis and moderate to severe multilevel neural foraminal narrowing. Electronically Signed: Benito Lawler DO at 21:39 EDT , Rhythm Strip Rhythm Strip: Sinus Rhythm Rate: 100 Ectopy: None Physical Exam Const oriented x3, no apparent distress and well nourished Constitutional Narrative: Upper middle-aged white male lying in bed, appears older than stated age, lying in bed sleeping but awakens easily and is appropriate, appears comfortable nontoxic HEENT head/scalp atraumatic and moist oral mucous membranes HEENT Narrative: Dentition is poor, Mallampati is 2, no thrush Head and Scalp: normocephalic Resp normal respiratory effort, no retractions, no use of accessory muscles and clear to auscultation bilaterally Resp Narrative: Diffusely diminished but clear Cardio regular rate, regular rhythm, S1 normal heart sound, S2 normal heart sound, no murmurs, no rub, no gallops and no clicks GI normal to inspection, nondistended, normoactive bowel sounds, soft to palpation and non-tender Extremity no clubbing, cyanosis or edema Extremity Narrative: Pedal pulses are 2+ Neuro oriented x3, moves all extremities and no focal motor deficits Neuro Narrative: , Mild fine tremor noted on exam Speech: speech normal Psych affect normal Psych Narrative: Pleasant interacts appropriately Assessment & Plan Assessment/Plan (1) Hydronephrosis: (2) Inability to urinate: (3) Acute hyperkalemia: (4) Acute kidney failure: (5) Anemia: PLAN: Plan LEN secondary to obstructive uropathy -CT shows severe hydronephrosis of the left kidney and his right kidney is absent due to resection from history of papillary cell carcinoma -Urology has been consulted and plans to take him to the OR today for stent placement and cystoscopy -Without patient having urinary output will decrease IV fluids to 70 cc/h and monitor postoperatively after obstruction is resolved -No current need for renal replacement therapy and kidney function should improve once obstruction is resolved -Continue to monitor renal function especially after obstruction abated -Discontinue Demerol and transition to Dilaudid for pain -We will avoid morphine with severe renal dysfunction presently Acute hyperkalemia -Resolved Macrocytic anemia -Baseline is unclear -It appears that he has probably some delusional drop in his hemoglobin as he has been on fluids at 125 cc/h and no urine output -Reduce rate to 70 cc/h -Repeat CBC in a.m. Mild thrombocytopenia -Suspect related to dilution with IV fluids -Repeat lab in a.m. Hypertension -We will hold home metoprolol for now as blood pressures are bit soft but continue to monitor -As needed hydralazine for systolic pressure greater than 160 and restart metoprolol when appropriate History of papillary cell carcinoma of the right kidney -Previous nephrectomy -Urology following Alcohol abuse -Patient reported on presentation that he drinks about 1212 ounce beers every Saturday and 112 ounce beer every Saturday however he reported the last time he drank was 10/14/2022 -Continue thiamine and folate -CIWA protocol with as needed Ativan however I highly doubt withdrawal will be a problem Tobacco abuse -We will make nicotine patch available -Recommend cessation Marijuana use -Recommend cessation DVT prophylaxis -Heparin subcu every 8 Charges/Coding Visit Charges Inpatient E&M: 07741 Subs Hosp L2
[2022-12-06] MEDS: 0.9% Normal Saline (1000mL) 1,000 ML 70 ML IV (08:42)
[2022-12-06] MEDS: 0.9% Normal Saline (1000mL) 1,000 ML 15 ML IV (09:12)
[2022-12-06 09:16] LABS: Anion Gap 7 (5-15); BUN 46 mg/dL (7-18); BUN/Creat Ratio 6.2 RATIO (10-20); Calcium,Total 8.4 mg/dL (8.5-10.1); Chloride 103 mmol/L (98-107); Creatinine, Serum 7.46 mg/dL (0.70-1.30); EST Glomerular Filtration Rate 8 mL/min (>60); Est Glom Filt Rate - Afr Amer 10 mL/min (>60); Estimated Creatinine Clearance 10.19 ml/min; Glucose 93 mg/dL (74-106); Potassium 5.5 mmol/L (3.5-5.1); Sodium Level 134 mmol/L (136-145)
--- NOTE | 2022-12-06 09:50 | EKG12_ITS ---
Test Reason : PRE OP Blood Pressure : / mmHG Vent. Rate : 096 BPM Atrial Rate : 096 BPM P-R Int : 166 ms QRS Dur : 074 ms QT Int : 320 ms P-R-T Axes : 067 022 056 degrees QTc Int : 404 ms Normal sinus rhythm Normal ECG When compared with ECG of 05-DEC-2022 20:02, MANUAL COMPARISON REQUIRED, DATA IS UNCONFIRMED Confirmed by RUEL RODRIGUEZ, MINNA ([id number]), health editor RAJIV GOFF ([id number]) on 12/13/2022 1:19:20 PM Referred By: PAU MOSES Confirmed By:MINNA LIPSCOMB MD
--- NOTE | 2022-12-06 10:55 | PCM.OPRPT ---
Report of Operation Date of Procedure: 12/06/22 Pre-Operative Diagnosis: Left hydronephrosis and acute renal failure Post-Operative Diagnosis: Same Surgery/Procedure Performed:: Cystoscopy, left retrograde pyelogram, left stent placement Description of Surgical Findings:: This is a 62-year-old male has a history of a solitary kidney he had a right nephrectomy for multifocal papillary renal cell carcinoma in the past. Presented to the hospital with acute renal failure with no urine output CT scan was done that demonstrated left hydronephrosis little bit of hydroureter but no clear explanation on CAT scan why urines not draining from his left kidney I do not see any obvious masses or stones or structures that causes the hydronephrosis. It is a organ to proceed with a cystoscopy retrograde pyelogram and stent placement patient was taken back to the operating room after smooth induction of anesthesia he was placed in dorsolithotomy position. The penis and testicles were prepped and draped in usual sterile fashion went into the bladder with a 21 [place] rigid cystourethroscope, the entire length of the urethra was normal pendulous urethra is normal membrane urethra is normal prostatic urethra normal verumontanum was identified he had slight hypertrophy of the prostate no significant obstruction inside the bladder I had a mildly trabeculated bladder no obvious tumors or stones inside the bladder no mucosal abnormalities. After cystoscopy was completed then I cannulated the left ureteral orifice and advanced a wire up in the left kidney over the wire advanced a 5 [place] open-ended ureteral catheter and injected contrast into the kidney I then aspirated and got some urine from the kidney distal be sent off for culture he did have a fever at the time of the procedure. Once the retrograde pyelogram was done to demonstrate the hydronephrosis again on retrograde I could not identify what was causing it no obvious stones or kinks or abnormalities I then advanced stent it was a 7 [place] by 26 cm stent over the wire and then pulled the wire and the stent coiled in the kidney and bladder in good position. I then drained the bladder and patient acetic was reversed. He is taken back to the PACU in good condition hopefully with the new stent this will help drainage of the kidney and improve his renal function. Surgeon: Jorge Gray
--- NOTE | 2022-12-06 12:54 | CASEMGMT ---
SW reviewed patient's chart and noted patient has alcoholism listed on his diagnoses. SW met with patient. Introduced self and role at [facility]. SW asked patient about his alcohol consumption. Patient said he has cut back to only drinking on the weekends. Patient does not feel he needs any resources, but thanked SW for checking. Yashira Rousseau MILK COLLECTOR LINUS
[2022-12-06 12:57] LABS: Anion Gap 5 (5-15); BUN 40 mg/dL (7-18); BUN/Creat Ratio 6.4 RATIO (10-20); Calcium,Total 8.4 mg/dL (8.5-10.1); Chloride 106 mmol/L (98-107); Creatinine, Serum 6.29 mg/dL (0.70-1.30); EST Glomerular Filtration Rate 10 mL/min (>60); Est Glom Filt Rate - Afr Amer 12 mL/min (>60); Estimated Creatinine Clearance 12.08 ml/min; Glucose 97 mg/dL (74-106); Potassium 5.5 mmol/L (3.5-5.1); Sodium Level 136 mmol/L (136-145)
--- NOTE | 2022-12-06 13:30 | CASEMGMT ---
RN LESLEE Face to Face with patient for initial transition planning/care coordination assessment. RN CM introduced self and role at [facility]. Patient lying in bed, alert and oriented. Patient willing to participate in assessment and is able to answer all questions appropriately. Care providers, pharmacy, and demographics verified. Patient wishes to discharge home, denies need for home health at this time. Patient states he has no further needs or concerns at this time. CM to follow for discharge planning needs that may arise. PCP: [facility] Specialists: none Preferred Pharmacy: [facility]; [facility] retail at discharge. Insurance: [employer] Prescription Benefit: yes Living Will/HPOA: none LNOK: significant other, daughter Living Arrangements: Patient lives with significant other in a 2 story home with bed and bath on first floor, 3 steps and railing to enter the home. Patient is independent at home. Transportation: self, significant other DME/HHC: Patient has cane and walker at home. No previous HHC or SNF. Disposition Plan: Patient to discharge home with family support and follow-up plans in place. Toyin PLASCENCIA, RN, CM
[2022-12-06] MEDS: amLODIPine 10 MG Tablet PO (13:51)
[2022-12-06] MEDS: HYDROmorphone 0.5 MG/0.5 ML SYRINGE IV ×3 (13:51→23:12)
--- NOTE | 2022-12-06 14:33 | NURSING ---
Pt back to floor at 1200 with tavares removed.
[2022-12-06] MEDS: Gabapentin 100 MG Capsule 200 MG PO ×2 (15:46→20:23)
[2022-12-06] MEDS: 0.9% Saline Lock 10 ML Syringe IV (18:33)
[2022-12-07 03:28] VITALS: BP 152/89; PULSE 90; RESP 14; TEMP 36.6; O2SAT 95
[2022-12-07] MEDS: Heparin Injection (Vial) 5,000 UNIT/ML VIAL 5000 UNIT SC (05:33)
[2022-12-07] MEDS: HYDROmorphone 0.5 MG/0.5 ML SYRINGE IV ×2 (05:37→08:55)
[2022-12-07 06:14] LABS: Absolute Lymphocyte Count 1.14 X10^3/uL (0.83-4.51); Absolute Neutrophil Count 5.5 X10^3/uL (2.0-7.7); Basophil# 0.06 X10^3/uL; Basophil% 0.8 % (0-1); Eosinophil# 0.36 X10^3/uL; Eosinophils% 4.6 % (0-5); Hematocrit 35.8 % (40-54); Hemoglobin 11.8 g/dL (13.0-16.5); Lymphocyte # 1.14 X10^3/ul (0.83-4.51); Lymphocyte % 14.6 % (19-41); Mean Corpuscular Hgb 32.4 pg (27.0-32.0); Mean Corpuscular Volume 98.4 fL (80-94); Mean Platelet Vol. 9.4 fl (6.2-12.0); Monocyte# 0.73 X10^3/uL; Monocyte% 9.4 % (0-10); NRBC Flagged by Analyzer 0 % (0-5); Neutrophil # 5.48 X10^3/uL (2.7-7.7); Neutrophil % 70.3 % (47-70); Platelet Count 178 K/mm3 (150-450); RBC Distribution Width CV 13.2 % (11.6-14.6); RBC Distribution Width SD 47.4 fl (35.1-43.9); Red Blood Count 3.64 M/mm3 (4.6-6.2); White Blood Count 7.8 K/mm3 (4.4-11.0)
[2022-12-07 06:53] LABS: Anion Gap 3 (5-15); BUN 23 mg/dL (7-18); BUN/Creat Ratio 13.6 RATIO (10-20); Calcium,Total 8.9 mg/dL (8.5-10.1); Chloride 104 mmol/L (98-107); Creatinine, Serum 1.69 mg/dL (0.70-1.30); EST Glomerular Filtration Rate 44 mL/min (>60); Est Glom Filt Rate - Afr Amer 53 mL/min (>60); Estimated Creatinine Clearance 44.97 ml/min; Glucose 107 mg/dL (74-106); Potassium 4.2 mmol/L (3.5-5.1); Sodium Level 135 mmol/L (136-145)
--- NOTE | 2022-12-07 07:15 | PCM.CONS.B ---
Consult Date of Consult: 12/07/22 Reason for Consult 62-year-old male presented with solitary kidney and hydronephrosis cause is unknown known I told the patient this could not see any stones obstruction tumors. Retrograde was not helpful. He did undergo cystoscopy and left stent placement his creatinine is now down to 1.69 which is probably close to his baseline and he is making adequate urine. How to follow-up with me as an outpatient in the office and what to set him up for some further testing as outpatient to figure out what is causing his blockage of the kidney but at this point he is got a 7.5 Sammarinese stent in which is working well.
[2022-12-07 08:00] VITALS: BP 162/92; PULSE 95; RESP 16; TEMP 36.6; O2SAT 95
[2022-12-07 08:19] VITALS: O2SAT 95
[2022-12-07 08:50] VITALS: BP 162/92; PULSE 95
[2022-12-07] MEDS: Folic Acid 1 MG Tablet PO (08:50)
[2022-12-07] MEDS: Metoprolol(XL)Succ 100 MG Tablet PO (08:50)
[2022-12-07] MEDS: Thiamine Hydrochloride 100 MG Tablet PO (08:51)
[2022-12-07] MEDS: amLODIPine 10 MG Tablet PO (08:51)
[2022-12-07] MEDS: Gabapentin 100 MG Capsule 200 MG PO (08:55)
[2022-12-07 10:50] VITALS: BP 153/97; PULSE 90; RESP 16; TEMP 36.6; O2SAT 95
[2022-12-07] MEDS: 0.9% Saline Lock 10 ML Syringe IV (10:54)
[2022-12-07] MEDS: Cefazolin 1 GM/50 ML BAG IV (10:54)
--- NOTE | 2022-12-07 11:12 | PCM.DC.SUM ---
Providers Date of Admission: 12/05/22 Date of Discharge: 12/07/22 Primary Care Physician: Dr. Slime Foote MD Consultations 12/06/22 06:34 Consult: Urology Routine Consulting Provider: Jorge Gray Reason for Consult: LEN; hx of nephrectomy EMERGENT Consult: No Notified: Yes Date Notified: 12/06/22 Time Notified: 06:34 Method of Notification: Verbal 12/06/22 06:57 Consult: Urology Routine Consulting Provider: Jorge Gray Reason for Consult: hydro EMERGENT Consult: No Notified: Yes Date Notified: 12/06/22 Time Notified: 06:57 Method of Notification: Verbal Reason For Visit: LEN Diagnosis Discharge Diagnosis (1) Hydronephrosis: Status: Acute Code(s): N13.30 - Unspecified hydronephrosis (2) Inability to urinate: Status: Acute Code(s): R33.9 - Retention of urine, unspecified (3) Acute hyperkalemia: Status: Acute Code(s): E87.5 - Hyperkalemia (4) Acute kidney failure: Status: Acute Code(s): N17.9 - Acute kidney failure, unspecified (5) Anemia: Status: Acute Code(s): D64.9 - Anemia, unspecified Medications at Discharge Home Medications amlodipine 10 mg tablet 10 mg PO DAILY blood pressure 07/30/18 metoprolol succinate 50 mg tablet,extended release 24 hr (Toprol XL) 100 mg PO DAILY blood pressure 12/05/22 gabapentin 400 mg capsule 400 mg PO BID pain 12/06/22 losartan 100 mg tablet 100 mg PO DAILY bp 12/06/22 Hospital Course Operations - (Cystoscopy, left retrograde pyelogram, left stent placement) Procedures - (CT Abdomen and Pelvis) Summary of Care Provided Minutes Spent on Discharge: 25 Hospital Course: Mr. 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 He reported he not been able to urinate all day on the day of presentation and had associated shakiness. Vital signs demonstrated temperature of 97.2, heart rate 80, blood pressure 173/109 with repeat at 123/78, respirate 17 oxygen saturations were 98% on room air. CBC showed a normal white count with no left shift, mild macrocytic anemia with a hemoglobin of 12.3 and normal platelet count. Chemistry panel revealed a sodium of 133, potassium of 6.1 BUN of 44 and serum creatinine of 6.66 but was otherwise unremarkable. It did not identify any distention of the ureter or discrete obstructing stone and also showed multilevel degenerative changes in the spine. The case was discussed with from urology and he recommended admission and he would take the patient to the OR to relieve obstruction. He was admitted to telemetry due to his hyperkalemia on presentation and taken to the OR on 12/06/2022 at which time cystoscopy, left retrograde pyelogram and left stent made splint was performed. Patient renal function became so elevated because he has a solitary left kidney. Per urology documentation there was no obstruction from stones identified or obstructive tumors noted. A 7.5 Tajik stent was placed and his serum creatinine dramatically improved. Peak serum creatinine was 7.46 with a postoperative serum creatinine at 6.29 and his serum creatinine on the a.m. of 12/07/2022 was 1.69. Baseline serum creatinine is unknown however in 2018 from our previous records his serum creatinine appears to run between 1 and 1.2. Patient was feeling much better and his electrolyte abnormalities had resolved. He was cleared for discharge from urological standpoint and medically was doing well so we were able to discharge him home in stable condition on 12/07/2022. All of his home medications were reinitiated. He is to follow-up with Dr. Gray in the next week and I have asked him to call his office on Saturday to set this evaluation up. He will need to follow-up with his primary care physician as needed. Patient may return back to work on Saturday. Discharge diagnoses: LEN secondary to obstructive uropathy-resolving Acute hyperkalemia-resolved Macrocytic anemia Mild thrombocytopenia-resolved Hypertension Solitary left kidney History of papillary cell carcinoma over the right kidney History of alcohol abuse History of tobacco abuse Marijuana use Physical Exam Const alert, oriented x3, no apparent distress, average body habitus, no limitations and well nourished Constitutional Narrative: Upper middle-aged white male lying in bed, appears older than stated age, sitting up in bed, eating breakfast, appears comfortable nontoxic, watching television General Appearance: cooperative, comfortable, well kempt and well developed Orientation / Consciousness: awake, oriented to person, oriented to place and oriented to time Exam Limitations: no limitations Nutritional Appearance: overweight HEENT normocephalic, head/scalp atraumatic and moist oral mucous membranes HEENT Narrative: Mild hearing loss, Mallampati is 2, no thrush Resp normal respiratory effort, no retractions, no use of accessory muscles and clear to auscultation bilaterally Resp Narrative: Diffusely diminished but clear Cardio regular rate, regular rhythm, S1 normal heart sound, S2 normal heart sound, no murmurs, no rub, no gallops and no clicks GI normal to inspection, nondistended, normoactive bowel sounds, soft to palpation and non-tender Extremity no clubbing, cyanosis or edema Extremity Narrative: Pedal pulses are 2+ Neuro oriented x3, CN's II-XII intact bilaterally, moves all extremities and no focal motor deficits Speech: speech normal Psych affect normal Psych Narrative: Pleasant interacts appropriately Weight / BMI Weight Weight: 83.5 kg Body Mass Index (BMI) 28.0 ABG / Lab / Microbiology Data 12/07/22 05:41 12/07/22 05:41 Laboratory: Laboratory Results - last 24 hr 12/06/22 12:30: Sodium 136, Potassium 5.5 H, Chloride 106, Carbon Dioxide 25.0, Anion Gap 5, BUN 40 H, Creatinine 6.29 H, Estim Creat Clear Calc 12.08, Est GFR (MDRD) Af Amer 12 L, Est GFR (MDRD) Non-Af 10 L, BUN/Creatinine Ratio 6.4 L, Glucose 97, Calcium 8.4 L 12/07/22 05:41: WBC 7.8, RBC 3.64 L, Hgb 11.8 L, Hct 35.8 L, MCV 98.4 H, MCH 32.4 H, MCHC 33.0, RDW Std Deviation 47.4 H, RDW Coeff of Nettie 13.2, Plt Count 178, MPV 9.4, Immature Gran % (Auto) 0.300, Neut % (Auto) 70.3 H, Lymph % (Auto) 14.6 L, [place] % (Auto) 9.4, Eos % (Auto) 4.6, Baso % (Auto) 0.8, Absolute Neuts (auto) 5.5, Absolute Lymphs (auto) 1.14, Nucleated RBC % 0, Sodium 135 L, Potassium 4.2, Chloride 104, Carbon Dioxide 28.0, Anion Gap 3 L, BUN 23 H, Creatinine 1.69 H, Estim Creat Clear Calc 44.97, Est GFR (MDRD) Af Amer 53 L, Est GFR (MDRD) Non-Af 44 L, BUN/Creatinine Ratio 13.6, Glucose 107 H, Calcium 8.9 D/C Instructions Discharge Diet: Low fat / Low cholesterol Discharge Activity: Return to Normal Activity Return to work on: 12/10/22 Meaningful Use Info Meaningful Use Diagnoses (Choose all that apply): None applicable Discharge Plan Admission Admit Date/Time: 12/05/22 20:10 Primary Reason for Your Visit: Unable to Urinate Attending Provider: Zenaida Cates Primary Care Provider: Slime Foote Consulting Providers: Michael Hein; Jorge Gray Instructions Forms: Work Excuse Additional Instructions / Restrictions: 1. Please return to the emergency department if you redevelop the inability urinate or your ability to urinate significantly changes or you develop pain. Discharge Orders/Prescriptions Prescriptions: Continued amlodipine 10 mg tablet 10 mg PO DAILY metoprolol succinate [Toprol XL] 50 mg tablet extended release 24 hr 100 mg PO DAILY gabapentin 400 mg capsule 400 mg PO BID Patient Comments: TAKE 1 CAPSULE BY MOUTHCTWICE DAILY. losartan 100 mg tablet 100 mg PO DAILY Patient Comments: TAKE 1 TABLET BY MOUTHEONCE DAILYR Referrals / Follow Up: Slime Foote MD [Primary Care Provider] - See Referral Note (as needed) Jorge Gray MD [Med Staff - Active Staff] - Within 1 Week (Call Saturday to set up post hospital follow appt) Disposition Disposition (needs filled in before D/C Order can be placed): Home, Self Care Charges/Coding Visit Charges Inpatient E&M: 49977 Disch Hosp
--- NOTE | 2022-12-07 11:32 | PHA.DC.MR.R ---
Pharmacy [facility] Med Reconciliation Pharmacy Service has performed discharge medication reconciliation for this patient. The patient's discharge medication list was reviewed for discrepancies and discrepancies were resolved. Medications at Discharge Home Medications amlodipine 10 mg tablet 10 mg PO DAILY blood pressure 07/30/18 metoprolol succinate 50 mg tablet,extended release 24 hr (Toprol XL) 100 mg PO DAILY blood pressure 12/05/22 gabapentin 400 mg capsule 400 mg PO BID pain 12/06/22 losartan 100 mg tablet 100 mg PO DAILY bp 12/06/22
--- NOTE | 2022-12-07 11:56 | CASEMGMT ---
Patient has order for discharge. RN CM in to inquire about needs at discharge. Patient denies needs at discharge. Patient had no further questions or concerns.
== END 2022-12-07 12:32 | disposition home or self-care (01) | DRG 982 ==
LOC: ED 19:53 → PCU 20:33
PROVIDERS: Urology; Admitting Provider Hospitalist; Emergency Provider Emergency Medicine; PCP Internal Medicine; Visit Provider Internal Medicine
PROC: 0T748DZ Dilation of Left Kidney Pelvis with Intraluminal Device, Via Natural or Artificial Opening Endoscopic (ICD-10-PCS; CPT 52332; principal; 2022-12-06 09:50)
DX: E87.5 Hyperkalemia (principal); N17.9 Acute kidney failure, unspecified; N13.30 Unspecified hydronephrosis; N20.1 Calculus of ureter; Q60.0 Renal agenesis, unilateral; D69.6 Thrombocytopenia, unspecified; D53.9 Nutritional anemia, unspecified; I10 Essential (primary) hypertension; F10.10 Alcohol abuse, uncomplicated; E87.6 Hypokalemia; F12.90 Cannabis use, unspecified, uncomplicated; F17.210 Nicotine dependence, cigarettes, uncomplicated; R33.9 Retention of urine, unspecified; Z85.528 Personal history of other malignant neoplasm of kidney
CPT/HCPCS: 36415; 74176; 76000; 80048; 85025; 87086; 93005; 94640; 99283; J7030; P9612; A4216; C1769; C1874; J0612; J2405

== ENCOUNTER → 2022-12-13 | Outpatient (CLI) | payer OTHER, SELFPAY ==
--- NOTE | 2022-12-13 14:20 | CYSPIN_PTH ---
PATIENT: PRASANTH PHAN LOC: LAB U#:[id number] AGE/SX: 62/M ROOM: RE12/13/[address]: Dr. Jorge Gray MD : [id number] BED: DIS: 12/13/2022 SPEC #: [id number] RECD: 12/14/22 07:52 STATUS: YAKELIN RESid #: [id number] LUCIE: 12/13/22 14:[address]: Jorge Gray DEPT: CYTOLOGY RECD BY: Tasia Vo ENTERED: 12/14/22 07:52 SP TYPE: CYSPIN FL OTHR DR: Dr. Slime Foote MD Tissues: Urine Procedures: Pap Stain (control) Special Stain Group II Cytospin Fluid HEADER OPERATION: Not noted PRE-OP DIAGNOSIS: Other obstructive defects of renal pelvis and ureter TISSUE SUBMITTED: Urine for cytology DIAGNOSIS CYTOLOGY Urine for cytology (cytospin): Clusters of atypical urothelial cells noted, Molly System Category III. See comment. RONAK:rg 12/14/2022 COMMENT Clinical correlation and appropriate follow up are necessary. The Molly System for urine cytology diagnostic categorization was used in the evaluation of this case. CYTOLOGY STUDY Slides are reviewed. CYTOLOGY GROSS Received is 110 ml of yellow gold cloudy fluid labeled with the patient's name and and designated per the requisition as urine. Submitted for cytology preparation. / treasure 12/13/2022 TC:5 CPT: 03815
[2022-12-13 14:52] LABS: Hematocrit 42.3 % (40-54); Hemoglobin 13.9 g/dL (13.0-16.5); Mean Corp Hgb Conc 32.9 g/dL (32-36); Mean Corpuscular Hgb 32.8 pg (27.0-32.0); Mean Corpuscular Volume 99.8 fL (80-94); Mean Platelet Vol. 8.8 fl (6.2-12.0); Platelet Count 394 K/mm3 (150-450); RBC Distribution Width CV 12.6 % (11.6-14.6); RBC Distribution Width SD 46.5 fl (35.1-43.9); Red Blood Count 4.24 M/mm3 (4.6-6.2); White Blood Count 8.9 K/mm3 (4.4-11.0)
[2022-12-13 15:32] LABS: ALB/GLOB Ratio 0.8 RATIO (0.9-2.4); AST(SGOT) 17 U/L (15-37); Alanine Aminotransfer ALT/SGPT 26 U/L (16-61); Albumin, Serum 3.6 g/dL (3.2-5.0); Alkaline Phosphatase 123 U/L (45-117); Anion Gap 4 (5-15); BUN 10 mg/dL (7-18); BUN/Creat Ratio 8.3 RATIO (10-20); Calcium,Total 9.4 mg/dL (8.5-10.1); Chloride 101 mmol/L (98-107); Creatinine, Serum 1.21 mg/dL (0.70-1.30); EST Glomerular Filtration Rate 65 mL/min (>60); Est Glom Filt Rate - Afr Amer 79 mL/min (>60); Globulin 4.3 g/dL (2.2-4.2); Glucose 98 mg/dL (74-106); PSA,Total- Diagnostic 5.24 ng/mL (0.0-4.0); Potassium 5.1 mmol/L (3.5-5.1); Protein, Total 7.9 g/dL (6.4-8.2); Sodium Level 135 mmol/L (136-145)
[2022-12-13 16:32] LABS: Cytology, Body Fluid / CSF SEE PATHOLOGY REPORT
== END | disposition home or self-care (01) ==
PROVIDERS: PCP Internal Medicine; Referring Provider Urology; Visit Provider Urology
DX: Q62.39 Other obstructive defects of renal pelvis and ureter (principal)
CPT/HCPCS: 36415; 80053; 84153; 85027; 88108; 88313

== ENCOUNTER → 2023-01-08 | Outpatient (CLI) | payer OTHER, SELFPAY ==
[2023-01-08 11:26] LABS: Anion Gap 5 (5-15); BUN 17 mg/dL (7-18); BUN/Creat Ratio 13.4 RATIO (10-20); Calcium,Total 8.9 mg/dL (8.5-10.1); Chloride 103 mmol/L (98-107); Creatinine, Serum 1.27 mg/dL (0.70-1.30); EST Glomerular Filtration Rate 61 mL/min (>60); Est Glom Filt Rate - Afr Amer 74 mL/min (>60); Glucose 110 mg/dL (74-106); Potassium 4.8 mmol/L (3.5-5.1); Sodium Level 135 mmol/L (136-145)
== END | disposition home or self-care (01) ==
LOC: LAB 10:23
PROVIDERS: PCP Internal Medicine; Referring Provider Urology; Visit Provider Urology
DX: Q62.39 Other obstructive defects of renal pelvis and ureter (principal)
CPT/HCPCS: 36415; 80048

== ENCOUNTER 2023-01-11 16:58 | Observation (INO) | payer OTHER, SELFPAY ==
[2023-01-11] VITALS (9 sets, daily range): BP systolic 107–131; BP diastolic 78–98; PULSE 78–84; RESP 13–20; TEMP 36.4–37.2; O2SAT 95–98; BMI 28.3; BMI 27.8; BMI 27.7
--- NOTE | 2023-01-11 17:43 | EKG12_ITS ---
Test Reason : COMPLAINT Blood Pressure : / mmHG Vent. Rate : 090 BPM Atrial Rate : 090 BPM P-R Int : 160 ms QRS Dur : 084 ms QT Int : 352 ms P-R-T Axes : 075 040 064 degrees QTc Int : 430 ms Normal sinus rhythm Normal ECG Confirmed by MINNA LIPSCOMB MD ([id number]), associate editor DAVID GODWIN ([id number]) on 01/16/2023 12:29:29 PM Referred By: LUX Confirmed By:MINNA LIPSCOMB MD
--- NOTE | 2023-01-11 17:44 | EX.ED.DYSGE1 ---
HPI History of Present Illness Chief Complaint: Complaint Informant: patient Onset/Context/Timing Onset: Today Narrative Narrative: Patient present secondary to increasing left flank pain and unable to urinate today. About a month ago he was admitted to the hospital with renal failure and hydronephrosis on the left. He had a stent placed. Patient and states the stent was exchanged out and then ultimately removed about 2 weeks ago. He was just seen by Dr. Gray in the office 3 days ago and was doing well. He states he has not been able to urinate at all today and does not have the urge to urinate. He is complaining of increasing left flank pain. He had a right nephrectomy done in the past secondary to renal cell carcinoma [facility] Medical History (Updated 01/11/23 @ 19:[address] Estephanie Laboy MD) Anemia Cannabis use disorder, mild, abuse Essential (primary) hypertension Hematuria Hepatitis C History of ETOH abuse Nicotine dependence Papillary renal cell carcinoma Perforation of colon Right renal mass Home Medications amlodipine 10 mg tablet 10 mg PO DAILY blood pressure 07/30/18 [History Last Taken Unknown] metoprolol succinate 50 mg tablet,extended release 24 hr (Toprol XL) 100 mg PO DAILY blood pressure 12/05/22 [History Last Taken Unknown] gabapentin 400 mg capsule 400 mg PO BID pain 12/06/22 [History Last Taken Unknown] losartan 100 mg tablet 100 mg PO DAILY bp 12/06/22 [History Last Taken Unknown] Allergy/AdvReac Type Severity Reaction Status Date / Time No Known Allergies Allergy Verified 01/11/23 17:00 Surgical History History of carpal tunnel release History of colostomy History of right radical nephrectomy (05/29/17) Social History Smoking Status: Current every day smoker tobacco type: cigarettes Tobacco: How many years used: 45 alcohol intake: current alcohol intake frequency: 3 or more drinks per day Alcohol type: beer substance use type: marijuana ROS ROS ED Constitutional Constitutional ED: Denies chills or fever(s) Eyes Eyes: Denies change in vision ENT ENT ED: Denies rhinorrhea or sore throat Cardiovascular Cardiovascular: Denies chest pain or palpitations Respiratory/Chest Respiratory/Chest: Denies cough or dyspnea Gastrointestinal Gastrointestinal: Reports abdominal pain; Denies diarrhea, nausea or vomiting Genitourinary Genitourinary ED: Reports difficulty urinating Musculoskeletal Musculoskeletal: Reports back pain; Denies extremity pain Integumentary Denies Abrasions or rash Neurologic Neurologic: Denies headache(s) or weakness Psychiatric Psychiatric: Denies anxiety or depression Allergic/Immunologic Allergic/Immunologic ED: Denies lip swelling or urticaria EXAM Physical Exam Const Vital Signs: 01/11/23 17:00 01/11/23 18:45 01/11/23 19:03 Temperature 97.8 F 98.9 F Temperature Source Temporal Pulse Rate 83 81 82 Respiratory Rate 18 20 H 13 Blood Pressure 121/86 H 110/78 107/83 H Blood Pressure Mean 97 88 91 Pulse Ox 98 95 Oxygen Delivery Method Room Air Room Air Positive well nourished and well developed General Appearance ED: well developed HEENT Reports normocephalic and head/scalp atraumatic Eyes PERRL and EOMs intact bilaterally Neck supple Chest Wall inspection of chest normal and palpation of chest normal Resp normal respiratory effort and clear to auscultation bilaterally Cardio regular rate and regular rhythm GI non-tender Auscultation: hypoactive bowel sounds Palpation: soft Back/Spine General Back: CVA tenderness left Extremity normal to inspection Neuro oriented x3 and no sensory deficits noted Sensorium / Orientation: alert Motor Exam: strength 5/5 throughout Psych mental status grossly normal Skin no rashes or lesions noted MDM MDM MDM Narrative Medical decision making narrative: I did review the patient's recent hospital admission for similar. Patient placed on traffic monitor specialist. EKG obtained to evaluate for cardiac arrhythmia/ischemia. Labwork obtained to evaluate for leukocytosis, anemia, and electrolyte derangement. CT flank obtained to evaluate for ureteral obstruction. Patient given morphine and Zofran for pain. Lab Data Attestation: I reviewed the patient's lab results. Labs: Laboratory Results - last 24 hr 01/11/23 17:50 WBC 14.0 H RBC 4.31 L Hgb 14.4 Hct 40.9 MCV 94.9 H MCH 33.4 H MCHC 35.2 RDW Std Deviation 43.7 RDW Coeff of Nettie 12.5 Plt Count 230 MPV 9.0 Immature Gran % (Auto) 0.500 Neut % (Auto) 68.4 Lymph % (Auto) 15.7 L [place] % (Auto) 11.9 H Eos % (Auto) 2.9 Baso % (Auto) 0.6 Absolute Neuts (auto) 9.5 H Absolute Lymphs (auto) 2.19 Nucleated RBC % 0 Differential Comment SCANNED Sodium 127 L Potassium 4.0 Chloride 92 L Carbon Dioxide 26.0 Anion Gap 9 BUN 18 Creatinine 2.28 H Estim Creat Clear Calc 33.33 Est GFR (MDRD) Af Amer 38 L Est GFR (MDRD) Non-Af 31 L BUN/Creatinine Ratio 7.9 L Glucose 95 Calcium 9.0 Treatment and Re-Evaluation :: Patient's white count is 14.0 with no left shift. Hemoglobin 14.4. Chemistry studies reveal a sodium of 127. BUN is 18 and creatinine is 2.28. This is up one-point when compared to prior studies 3 days ago. Potassium is normal at 4.0. EKG is sinus rhythm at 99 bpm with no acute ischemia. CT flank formal result is still pending. Per my interpretation patient has left hydronephrosis with no urine noted in the bladder. Due to concern that the patient may need to go to the OR I did speak with Dr. Gray. He will admit the patient to his service with plans to take him to the OR tomorrow morning for stent. This was discussed with patient and family. Discharge Plan Triage Chief Complaint: Complaint Other Complaint: Flank Pain ED Provider: Estephanie Laboy Dx/Rx/DC Orders Clinical Impression: Hydronephrosis Prescriptions: No Action amlodipine 10 mg tablet 10 mg PO DAILY metoprolol succinate [Toprol XL] 50 mg tablet extended release 24 hr 100 mg PO DAILY gabapentin 400 mg capsule 400 mg PO BID Patient Comments: TAKE 1 CAPSULE BY MOUTHCTWICE DAILY. losartan 100 mg tablet 100 mg PO DAILY Patient Comments: TAKE 1 TABLET BY MOUTHEONCE DAILYR Primary Care Provider: Slime Foote Referrals: Slime Foote MD [Primary Care Provider] - Disposition Disposition: Acute Care [facility]
[2023-01-11] MEDS: Ondansetron 4 MG/2 ML Vial IV (17:49)
[2023-01-11] MEDS: Morphine 4 MG/ML Syringe IV ×2 (17:49→18:48)
[2023-01-11 18:05] LABS: Absolute Lymphocyte Count 2.19 X10^3/uL (0.83-4.51); Absolute Neutrophil Count 9.5 X10^3/uL (2.0-7.7); Basophil# 0.09 X10^3/uL; Basophil% 0.6 % (0-1); Eosinophils% 2.9 % (0-5); Hematocrit 40.9 % (40-54); Hemoglobin 14.4 g/dL (13.0-16.5); Lymphocyte # 2.19 X10^3/ul (0.83-4.51); Lymphocyte % 15.7 % (19-41); Mean Corp Hgb Conc 35.2 g/dL (32-36); Mean Corpuscular Hgb 33.4 pg (27.0-32.0); Mean Corpuscular Volume 94.9 fL (80-94); Monocyte# 1.66 X10^3/uL; Monocyte% 11.9 % (0-10); NRBC Flagged by Analyzer 0 % (0-5); Neutrophil # 9.54 X10^3/uL (2.7-7.7); Neutrophil % 68.4 % (47-70); POSITIVE DIFFERENTIAL YES; Platelet Count 230 K/mm3 (150-450); RBC Distribution Width CV 12.5 % (11.6-14.6); RBC Distribution Width SD 43.7 fl (35.1-43.9); Red Blood Count 4.31 M/mm3 (4.6-6.2)
[2023-01-11 18:09] LABS: Differential Indicated SCAN CRITERIA MET
--- NOTE | 2023-01-11 18:10 | CT_ITS ---
STUDY: CT ABDOMEN AND PELVIS WITHOUT CONTRAST REASON FOR EXAM: Male, 62 years old. flank pain RADIATION DOSAGE (If Supplied By Facility): CTDIvol = ( 9.54 ) mGy, DLP = ( 560.04 ) mGycm TECHNIQUE: Transaxial images were obtained from the dome of the diaphragm to the symphysis pubis without oral contrast, and without intravenous contrast. Sagittal and coronal images were reconstructed. Individualized dose optimization techniques were used for this CT. COMPARISON: CT abdomen and pelvis December 05, 2022 FINDINGS: The visualized lung bases are unremarkable. The visualized portions of the heart are within normal limits. Normal liver. Normal gallbladder and extrahepatic biliary system. Normal spleen. Normal pancreas. Normal bilateral adrenal glands. Right kidney is surgically absent. Severe left hydronephrosis. Ill-defined radiodensity noted at the UPJ which may represent hemorrhagic clot or nonopacified stones. Normal visualized stomach. Multiple air-fluid levels in the small bowel. Rectosigmoid anastomosis. Appendix surgically absent. Calcified plaque along the aorta and its branches. Normal inferior vena cava. Normal retroperitoneum. Bladder is decompressed. Bilateral fat-containing inguinal hernias. Mild dextroconvex scoliosis and spondylosis. Multiple lucencies and sclerosis L2-S1. CT/Abdomen/Pelvis without Cont IMPRESSION: Severe left hydronephrosis due to possible blood clot or uroliths UPJ. This appears unchanged. Right kidney surgically absent. Ileus. Sclerosis of multiple lucencies in the lumbar spine suspicious for possible metastatic disease. Recommend MRI of lumbar spine with and without IV contrast and/or bone scan. Electronically Signed: Meet Milligan MD at 19:22 EST ,
[2023-01-11 18:19] LABS: Anion Gap 9 (5-15); BUN 18 mg/dL (7-18); BUN/Creat Ratio 7.9 RATIO (10-20); Chloride 92 mmol/L (98-107); Creatinine, Serum 2.28 mg/dL (0.70-1.30); EST Glomerular Filtration Rate 31 mL/min (>60); Est Glom Filt Rate - Afr Amer 38 mL/min (>60); Estimated Creatinine Clearance 33.33 ml/min; Glucose 95 mg/dL (74-106); Sodium Level 127 mmol/L (136-145)
[2023-01-11 18:31] LABS: Differential Comment SCANNED
[2023-01-11] MEDS: Morphine 2 MG/ML Syringe IV (21:25)
[2023-01-11] MEDS: 0.9% Normal Saline (1000mL) 1,000 ML 50 ML IV (21:32)
[2023-01-11] MEDS: Gabapentin 400 MG Capsule PO (21:42)
--- NOTE | 2023-01-11 22:35 | HP.PCM_ITS ---
HPI - General General Date of Admission: 01/11/23 Date of Service: 01/11/23 Chief Complaint: Left hydronephrosis no urine output HPI Narrative PRASANTH PHAN, is a 62 M who presents hospital with severe left flank pain he has had no urine output today CT scan was done that demonstrated left hydronephrosis he has a history of a prior right nephrectomy for multifocal papillary renal cell carcinoma. He had a stent placed but 6 weeks ago we did at diagnostic ureteroscopy which does demonstrate is a mild kink at the UPJ area unclear why he acquired a UPJ obstruction stent was left in place was then removed I did see him 2 weeks later after removal we did ultrasound in the office demonstrated no hydronephrosis he was doing well with no pain and now he presented to the hospital severe pain in the left side no urine output and no hydronephrosis to look like he has acquired left UPJ obstruction and working to place a stent today with cystoscopy left stent placement. [facility] Medical History (Updated 01/11/23 @ 22:[address] Jorge Gray MD) Anemia Cannabis use disorder, mild, abuse Essential (primary) hypertension Hematuria Hepatitis C History of ETOH abuse Nicotine dependence Papillary renal cell carcinoma Perforation of colon Right renal mass Home Medications amlodipine 10 mg tablet 10 mg PO DAILY blood pressure 07/30/18 [History Last Taken Unknown] metoprolol succinate 50 mg tablet,extended release 24 hr (Toprol XL) 100 mg PO DAILY blood pressure 12/05/22 [History Last Taken 01/11/23 06:00] gabapentin 400 mg capsule 400 mg PO BID pain 12/06/22 [History Last Taken 01/10/23 19:00] losartan 100 mg tablet 100 mg PO DAILY bp 12/06/22 [History Last Taken 01/11/23 06:00] Allergy/AdvReac Type Severity Reaction Status Date / Time No Known Allergies Allergy Verified 01/11/23 17:00 Surgical History History of carpal tunnel release History of colostomy History of right radical nephrectomy (05/29/17) Social History Smoking Status: Current every day smoker tobacco type: cigarettes Tobacco: How many years used: 45 alcohol intake: current alcohol intake frequency: 3 or more drinks per day Alcohol type: beer substance use type: marijuana Vital Signs Vital Signs Vital Signs: 01/11/23 17:00 01/11/23 18:45 01/11/23 19:03 Temperature 97.8 F 98.9 F Temperature Source Temporal Pulse Rate 83 81 82 Respiratory Rate 18 20 H 13 Respiratory Effort Respiratory Depth Respiratory Pattern Blood Pressure 121/86 H 110/78 107/83 H Blood Pressure Mean 97 88 91 Blood Pressure Source Blood Pressure Position Blood Pressure Location Pulse Ox 98 95 Oxygen Delivery Method Room Air Room Air 01/11/23 20:53 01/11/23 21:49 Temperature 97.7 F L Temperature Source Temporal Pulse Rate 78 Respiratory Rate 16 Respiratory Effort Normal Non-Labored Respiratory Depth Normal Respiratory Pattern Normal Blood Pressure 131/89 H Blood Pressure Mean 103 Blood Pressure Source Monitor Blood Pressure Position Semi-Fowlers Blood Pressure Location Left Arm Pulse Ox 97 Oxygen Delivery Method Room Air Room Air Weight Weight: 83 kg Body Mass Index (BMI) 27.7 Physical Exam Const alert and oriented x3 General Appearance: cooperative HEENT normocephalic, head/scalp atraumatic, EAC's normal and TM's normal bilaterally Eyes PERRL and EOMs intact bilaterally Pupil: sluggish Neck no lymphadenopathy, supple and no JVD General: trachea midline Lymph Lymphatic: no lymphadenopathy noted, lymphedema and lymphadenopathy Resp normal respiratory effort, normal air movement and clear to auscultation bilaterally Cardio regular rate, regular rhythm and peripheral pulses 2+ throughout GI soft to palpation, non-tender and non-distended Extremity normal capillary refill and no clubbing, cyanosis or edema General Extremity: no tenderness to palpation of joints or extremities Skin no rashes or lesions noted General Skin Exam: turgor normal Lesions: no lesions Rashes: no rashes Neuro CN's II-XII intact bilaterally Speech: speech normal Motor Exam: strength 5/5 throughout; Negative for general weakness Psych thought process normal, cooperative and affect normal Appearance: appropriate Results Lab / Micro Data 01/11/23 17:50 01/11/23 17:50 Labs: Laboratory Results - last 24 hr 01/11/23 17:50: WBC 14.0 H, RBC 4.31 L, Hgb 14.4, Hct 40.9, MCV 94.9 H, MCH 33.4 H, MCHC 35.2, RDW Std Deviation 43.7, RDW Coeff of Nettie 12.5, Plt Count 230, MPV 9.0, Immature Gran % (Auto) 0.500, Neut % (Auto) 68.4, Lymph % (Auto) 15.7 L, [place] % (Auto) 11.9 H, Eos % (Auto) 2.9, Baso % (Auto) 0.6, Absolute Neuts (auto) 9.5 H, Absolute Lymphs (auto) 2.19, Nucleated RBC % 0, Differential Comment SCANNED, Sodium 127 L, Potassium 4.0, Chloride 92 L, Carbon Dioxide 26.0, Anion Gap 9, BUN 18, Creatinine 2.28 H, Estim Creat Clear Calc 33.33, Est GFR (MDRD) Af Amer 38 L, Est GFR (MDRD) Non-Af 31 L, BUN/Creatinine Ratio 7.9 L, Glucose 95, Calcium 9.0 Imagaing Radiology Impression Abdomen/Pelvis CT 01/11/23 18:10 IMPRESSION: Severe left hydronephrosis due to possible blood clot or uroliths UPJ. This appears unchanged. Right kidney surgically absent. Ileus. Sclerosis of multiple lucencies in the lumbar spine suspicious for possible metastatic disease. Recommend MRI of lumbar spine with and without IV contrast and/or bone scan. Electronically Signed: Meet Milligan MD at 19:22 EST , Assessment & Plan Assessment/Plan (1) Hydronephrosis: (2) Obstruction of left ureteropelvic junction (UPJ): PLAN: Plan for cystoscopy left stent placement and then discharged in the morning
--- NOTE | 2023-01-11 22:38 | DCINST_ITS ---
Discharge Instructions Diet Discharge Diet: No restrictions Activity Discharge Activity: Return to Normal Activity and May Not Drive (while taking narcotic pain medications.) Dressing / Incision Call your doctor if you observe: Fever of 101 or Higher Follow Up Care Please Follow Up With: Jorge Gray MD When: Call [phone] for an appointment Test Results: Test results from this visit will be discussed in further detail at your follow- up appointment, if applicable. Discharge Plan Admission Admit Date/Time: 01/11/23 19:30 Attending Provider: Jorge Gray Primary Care Provider: Slime Foote Discharge Orders/Prescriptions Prescriptions: No Action amlodipine 10 mg tablet 10 mg PO DAILY metoprolol succinate [Toprol XL] 50 mg tablet extended release 24 hr 100 mg PO DAILY gabapentin 400 mg capsule 400 mg PO BID Patient Comments: TAKE 1 CAPSULE BY MOUTHCTWICE DAILY. losartan 100 mg tablet 100 mg PO DAILY Patient Comments: TAKE 1 TABLET BY MOUTHEONCE DAILYR Referrals / Follow Up: Slime Foote MD [Primary Care Provider] -
[2023-01-11] MEDS: Cefazolin 1 GM/50 ML BAG IV (22:40)
[2023-01-11] MEDS: Lidocaine Jelly 2% 20 ML Syringe (URO-JET) 1 APPLIC (22:50)
--- NOTE | 2023-01-11 23:03 | OP.PCM_ITS ---
Report of Operation Date of Procedure: 01/11/23 Pre-Operative Diagnosis: Left UPJ obstruction with hydro acquired Post-Operative Diagnosis: The same Surgery/Procedure Performed:: Cystoscopy and left retrograde pyelogram and left stent placement Description of Surgical Findings:: This is a 62-year-old male with a history of kidney cancer he underwent a right nephrectomy for papillary multifocal renal cell carcinoma several years ago he then presented to the with the sudden onset of left severe flank pain and about a month ago at that point stent was placed diagnostic ureteroscopy was done looks like he has acquired UPJ obstruction we then left a stent in place and recently remove the stent to see if we can go without it and initially for 2 weeks the patient did well and then suddenly presented tonight with severe left flank pain and no urine output for many hours so were taken to surgery today and performed a retrograde pyelogram placed a stent. Patient was taken back to the operating room at a smooth induction of a MAC local he was placed in dorsolithotomy position. Penis testicles prepped and draped in usual sterile fashion. Went into the bladder with a 21 Palestinian rigid cystourethroscope, cannulated the left ureter orifice with a Glidewire and a Pollick catheter performed a retrograde pyelogram to see contrast going up the ureter and then there was a very narrow area and then a spray and then diluted contrast in the dilated left renal pelvis with hydronephrosis I then advanced the wire into the dilated pelvis and then over the wire placed a stent 6 Palestinian by 26 cm stent I then drained the bladder patient's anesthetic was reversed and he be taken back to the PACU in good condition plan to keep him overnight for observation we will discharge him home tomorrow morning. Surgeon: Jorge Gray Type of Anesthesia: MAC and Topical Anesth Estimated Blood Loss (mL): 0 Admit VTE Documentation VTE Present on Admission: No VTE Mechan Device Prophylaxis: SCD's VTE Pharm Prophylaxis ordered?: No
[2023-01-12] MEDS: Morphine 2 MG/ML Syringe IV ×3 (00:01→08:36)
[2023-01-12 01:29] VITALS: BP 123/83; PULSE 79; RESP 18; TEMP 36.3; O2SAT 98
[2023-01-12 01:40] LABS: Bacteria 0 SEEN /hpf (None Seen); Mucous, Urine 0 SEEN /hpf (<or=2+); Squamous Epithelial Cells - UA 0 SEEN /hpf (0-5)
[2023-01-12 01:41] LABS: Color, Urine Yellow (Yellow); Glucose, Dipstick Normal (Normal); Ketone-Dipstick Negative (Negative); Leukocyte Esterase-Dipstick 25 /ul (Negative); Nitrite-Dipstick Negative (Negative); Occult Blood-Urine 250 /ul (Negative); Protein-Dipstick 30 mg/dl (Negative); Specific Gravity, Urine 1.005 (1.002-1.030); Urine Bilirubin Dipstick Negative (Negative); Urine Clarity Sl. Cloudy (Clear); Urine Urobilinogen Normal (Normal); Urine pH 6.5 (5.0 - 8.0)
[2023-01-12 02:03] LABS: Red Blood Cells-Urine 0-5 SEEN /hpf (0-5); White Blood Cells 10-25 SEEN /hpf (0-5)
[2023-01-12 04:14] VITALS: BP 114/81; PULSE 80; RESP 18; TEMP 36.5; O2SAT 96
[2023-01-12 08:00] VITALS: BP 117/83; PULSE 83; RESP 16; TEMP 36.6; O2SAT 96
[2023-01-12 08:33] VITALS: PULSE 83
[2023-01-12] MEDS: Losartan Potassium 100 MG Tablet PO (08:33)
[2023-01-12] MEDS: Metoprolol(XL)Succ 50 MG Tablet 100 MG PO (08:33)
[2023-01-12] MEDS: Gabapentin 400 MG Capsule PO (08:37)
[2023-01-12] MEDS: 0.9% Saline Lock 10 ML Syringe IV (08:37)
[2023-01-15 09:58] LABS: Pathologist Review Reviewed
== END 2023-01-12 13:07 | disposition home or self-care (01) ==
LOC: ED 19:09 → MS3 19:30
PROVIDERS: Admitting Provider Urology; Emergency Provider Emergency Medicine; PCP Internal Medicine; Visit Provider Urology
PROC: (CPT 52332; principal; 2023-01-11 22:30)
DX: N13.0 Hydronephrosis with ureteropelvic junction obstruction (principal); I10 Essential (primary) hypertension; F17.210 Nicotine dependence, cigarettes, uncomplicated; Z85.528 Personal history of other malignant neoplasm of kidney; Z79.899 Other long term (current) drug therapy
CPT/HCPCS: 52332; 00910; 99285; 74176; 76000; 80048; 81001; 85025; 93005; 96366; 96374; 96375; 96376; 99221; J7030; A4216; C1769; C2617; G0378; J2405

== ENCOUNTER → 2023-01-21 | Outpatient (CLI) | payer OTHER, SELFPAY ==
[2023-01-21 12:19] LABS: Anion Gap 7 (5-15); BUN 13 mg/dL (7-18); BUN/Creat Ratio 9.6 RATIO (10-20); Calcium,Total 9.2 mg/dL (8.5-10.1); Chloride 101 mmol/L (98-107); Creatinine, Serum 1.35 mg/dL (0.70-1.30); EST Glomerular Filtration Rate 57 mL/min (>60); Est Glom Filt Rate - Afr Amer 69 mL/min (>60); Glucose 114 mg/dL (74-106); Potassium 4.5 mmol/L (3.5-5.1); Sodium Level 135 mmol/L (136-145)
== END | disposition home or self-care (01) ==
PROVIDERS: PCP Internal Medicine; Referring Provider Nurse Practitioner; Visit Provider Nurse Practitioner
DX: Q62.39 Other obstructive defects of renal pelvis and ureter (principal); R31.0 Gross hematuria
CPT/HCPCS: 36415; 80048; 87077; 87086; 87088; 87186

== ENCOUNTER 2023-02-13 09:23 | Observation (INO) | payer OTHER, SELFPAY ==
[2023-02-13] VITALS (12 sets, daily range): BP systolic 97–152; BP diastolic 63–94; PULSE 51–72; RESP 16–18; TEMP 36.1–37.1; O2SAT 95–100; BMI 27.4
[2023-02-13] MEDS: Lactated Ringers 1,000 ML 15 ML IV ×3 (07:38→13:33)
--- NOTE | 2023-02-13 08:27 | HP.PCM_ITS ---
[facility] - General General Date of Service: 02/13/23 Chief Complaint: Left UPJ obstruction and solitary left kidney HPI Narrative PRASANTH PHAN, is a 62 M who presents for a left pyeloplasty he has a solitary left kidney and he has a UPJ stricture organ to proceed with a pyeloplasty on the left side and a stent placement [facility] Medical History (Updated 02/01/23 @ 13:33 by Ariane Chaudhary) Anemia Arthritis Cannabis use disorder, mild, abuse Cardiology follow-up encounter Edentulous Essential (primary) hypertension Hematuria Hepatitis C History of diverticulitis History of echocardiogram History of ETOH abuse Nicotine dependence Papillary renal cell carcinoma Perforation of colon Right renal mass Shortness of breath on exertion Smoker Wears glasses Home Medications metoprolol succinate 50 mg tablet,extended release 24 hr (Toprol XL) 100 mg PO DAILY blood pressure 12/05/22 [History Last Taken 02/13/23] gabapentin 400 mg capsule 400 mg PO .1500 AND QHS pain 12/06/22 [History Last Taken 01/10/23 19:00] losartan 100 mg tablet 100 mg PO DAILY bp 12/06/22 [History Last Taken 02/13/23] Allergy/AdvReac Type Severity Reaction Status Date / Time No Known Allergies Allergy Verified 02/13/23 07:22 Surgical History (Updated 02/01/23 @ 13:32 by Ariane Chaudhary) History of appendectomy History of arthroplasty of right shoulder History of carpal tunnel release History of colonoscopy History of colostomy History of colostomy reversal History of cystoscopy History of right radical nephrectomy (05/29/17) Social History Smoking Status: Current every day smoker tobacco type: cigarettes Tobacco: How many years used: 45 alcohol intake: current alcohol intake frequency: 3 or more drinks per day Alcohol type: beer substance use type: marijuana Vital Signs Vital Signs Vital Signs: 02/13/23 07:32 02/13/23 07:32 Temperature 97 F L Temperature Source Temporal Pulse Rate 72 Respiratory Rate 18 Respiratory Pattern Normal Blood Pressure 137/89 H Blood Pressure Mean 105 Blood Pressure Source Monitor Blood Pressure Position Sitting Blood Pressure Location Right Arm Pulse Ox 100 Oxygen Delivery Method Room Air Weight Weight: 82 kg Body Mass Index (BMI) 27.4
[2023-02-13] MEDS: Cefazolin 2 GM in 0.9% Normal Saline (100mL Bag) 100 ML IV (09:23)
--- NOTE | 2023-02-13 09:26 | PCM.DC ---
Discharge Instructions Diet Discharge Diet: No restrictions and Light diet - advance as tolerated Activity Discharge Activity: Return to Normal Activity and May Not Drive (while a taking pain meds) Dressing / Incision Call your doctor if your incision/area has: Continuous Slow Oozing Call your doctor if you observe: Fever of 101 or Higher Catheter: Tavares to leg bag and Tavares to large bag Drain: [place] Follow Up Care Please Follow Up With: Jorge Gray MD When: 10 days for appt to remove tavares Test Results: Test results from this visit will be discussed in further detail at your follow-up appointment, if applicable. Discharge Plan Admission Primary Reason for Your Visit: left pyeloplasty Attending Provider: Jorge Gray Primary Care Provider: Slime Foote Discharge Orders/Prescriptions Prescriptions: New oxycodone 5 mg tablet 5 mg PO Q6H PRN (Reason: pain) 7 Days Qty: 14 0RF ciprofloxacin HCl 500 mg tablet 500 mg PO BID Qty: 20 0RF Continued metoprolol succinate [Toprol XL] 50 mg tablet extended release 24 hr 100 mg PO DAILY gabapentin 400 mg capsule 400 mg PO .1500 AND QHS Patient Comments: TAKE 1 CAPSULE BY MOUTHCTWICE DAILY. losartan 100 mg tablet 100 mg PO DAILY Patient Comments: TAKE 1 TABLET BY MOUTHEONCE DAILYR Referrals / Follow Up: Slime Foote MD [Primary Care Provider] - Jorge Gray MD [Med Staff - Active Staff] - Disposition Disposition (needs filled in before D/C Order can be placed): Home, Self Care
[2023-02-13] MEDS: Bupivacaine Mpf 0.5% 30 ML VIAL (10:01)
--- NOTE | 2023-02-13 11:52 | PCM.OPRPT ---
Report of Operation Date of Procedure: 02/13/23 Pre-Operative Diagnosis: Left UPJ obstruction Post-Operative Diagnosis: The same Surgery/Procedure Performed:: Extensive lysis of adhesions, left pyeloplasty laparoscopically robotic assisted Description of Surgical Findings:: 62-year-old male has a history of right kidney cancer multifocal cancer underwent a right nephrectomy several years ago, he then presented to the hospital with severe left flank pain no urine output was found to have a distended left renal pelvis and a UPJ obstruction he underwent stent placement and then we did a trial without a stent and it failed we did a trial with balloon dilation and stent removal and also failed so at this point organ to proceed with a laparoscopic robotic assisted left pyeloplasty he is also has extensive prior surgery he had an open colectomy and colostomy and colostomy takedown as he has prior extensive adhesions within the abdomen to proceed with a robotic assisted laparoscopic left pyeloplasty Patient was taken back to the operating room after smooth induction of anesthesia he was placed supine on the table and then underwent anesthesia Tavares placement here he had a stent in place for prior stent placement then at this point he was placed full flank left side up the abdomen was prepped and draped in usual sterile fashion I then going above the left upper quadrant put a infiltrate the skin and then made an small incision in the right below the costal edge and then we advanced a Veress needle and then into the introducer Veress needle into the peritoneal cavity and then insufflated the peritoneal cavity CO2 gas I then placed the robot trocar and looked then and I found extensive about adhesions blocking entire view I then was able to use the blunt end of the camera to find a open space and placed a 5 mm trocar then using laparoscopic scissor he is very carefully meticulously dissected the adhesions to the anterior abdominal wall that were present all along the anterior abdominal wall and brought this down lysing the adhesions extensively this took a long time as he had extensive adhesions from prior colectomy and a colostomy after I freed up enough space to place 2 more ports and then then I docked the robot and then we proceeded with dissection the colon had only been reflected off the kidney from prior surgery there was some adhesions between the small intestines and the lateral kidney these were released I then found Gerota's fascia and opened up during this fashion identified the ureter I then traced the ureter up to the kidney and I saw that there was a large feeding arterial blood vessel going over the top of the ureter right at the junction between the ureter and the renal pelvis at the UPJ looks like what was happening as the kidney would get distended this artery which is fixed within cause kinking and obstruction right at the ureter and the renal pelvis at the UPJ so I will freed up the ureter from around this artery that is pulsating artery we then transected the ureter right at the UPJ area and then this allowed the artery to fall then posterior and then I did an anastomosis of the ureter to the renal pelvis we did a spatulation of the ureter laterally and then I did interrupted stitches to reapproximate the ureter to the renal pelvis I did not do any reduction of the renal pelvis since it was not necessary and then I reapproximated the to the renal pelvis with interrupted stitches ER he had a stent in place I put the first stitch between the spatulated ureter and the renal pelvis then put 2 more stitches next to that and then I used the robot arm to coil and put the the stent back into the renal pelvis to straighten out the ureter nicely and then all going all the way around and continued with a 3-0 Monocryl reapproximating making sure that the approximate approximation was nice and loose and not supertight all the way around the ureter to complete an anastomosis of the ureter to the renal pelvis and allowing the obstructing feeding renal artery to go below the anastomosis then once this was done then I reapproximated the fat over the repair and then at this point all the ports were removed the gas was let out of the abdomen we closed all the ports with subcuticular stitches we used all 5 mm ports of note no fascial stitches need to be used and patient anesthetic is currently reversed minimal blood loss during the case was a difficult case because the extensive amount of adhesions in the beginning of the case but a very successful and perfect anastomosis of the ureter to the renal pelvis. All the needles and sponges were accounted for. He will go home with a Tavares catheter we will leave this in for 10 days to make sure that there is no pressure in the new anastomosis to let this heal completely and will get the catheter out in 10 days and will let the stent out in 6 weeks. Surgeon: Jorge Gray Type of Anesthesia: General Drains: stent and tavares Estimated Blood Loss (mL): 25 Admit VTE Documentation VTE Present on Admission: No VTE Mechan Device Prophylaxis: SCD's VTE Pharm Prophylaxis ordered?: No
[2023-02-13] MEDS: Ketorolac 15 MG/ML Vial IV ×3 (12:45→23:59)
--- OUTSIDE RECORDS SUMMARY | 2023-02-13 12:55 | XMS RPT_ITS | CCD ---
Author Name Unknown Address [address] [place] [address] Organization [facility] Care Team Providers Care Is Technician Name Role Phone NELDA SHIN Attending Unavailable MARIANELA WHITE Unavailable REFERRING, GOLD WO ID~[id number] Attending Unava tevin Foote MD, [facility] Primary Care Provider Dary RODRIGUEZ, Slime Primary Care Provider Dary RODRIGUEZ, Slime Primary Care Provider Dary RODRIGUEZ, Slime Primary Care Provider [phone] GANTA, SLIME Primary Care Unavailable OLDER, MINI Referring Unavailable OLDER, MINI Referring Unavailable GANTA, SLIME Primary Care Unavailable OLDER, MINI Attending Unavailable GANTA, SLIME Primary Care Unavailable OLDER, MINI Referring Unavailable GANTA, SLIME Primary Care Unavailable LUCIALLAN Attending Unavailable GANTA, SLIME Primary Care Unavailable OLDER, MINI Attending Unavailable GANTA, SLIME Primary Care Unavailable OLDER, MINI Referring Unavailable GANTA, SLIME Primary Care Unavailable OLDER, MINI Attending Unavailable GANTA, SLIME Primary Care Unavailable OLDER, MINI Referring Unavailable GANTA, SLIME Primary Care Unavailable OLDER, MINI Attending Unavailable GANTA, SLIME Primary Care Unavailable GANTA, SLIME Referring Unavailable OLDER, MINI Referring Unavailable GANTA, SLIME Primary Care Unavailable OLDER, MINI Attending Unavailable GANTA, SLIME Primary Care Unavailable GANTA, SLIME Primary Care Unavailable OLDER, MINI Referring Unavailable GANTA, SLIME Primary Care Unavailable OLDER, MINI Attending Unavailable OLDER, MINI Attending Unavailable GANTA, SLIME Primary Care Unavailable OLDER, MINI Referring Unavailable GANTA, SLIME Primary Care Unavailable Medications Current Medications Medication Drug Class(es) Dates Sig (Normalized) Sig (Original) gabapentin 400 mg oral capsule (15 sources) Anti-epileptic Agent Start: 01-21-2023 End: 07-20-2023 take 1 capsule by mouth twice daily gabapentin (NEURONTIN) 400 mg capsule Take 1 capsule by mouth two times a day for 180 days. 180 capsule 1 01/21/2023 07/20/2023 Active Completed/Discontinued Medications Medication Drug Class(es) Dates Sig (Normalized) Sig (Original) B Complex Vitamins capsule (6 sources) End: 06-01-2022 take 1 capsule by mouth once daily B Complex Vitamins capsule Take 1 capsule by mouth once daily. 0 06/01/2022 Discontinued (Discontinued by Patient) Problems Active Problems Problem Classification Problem Date Documented Da te Episodic/Chronic Acute and unspecified renal failure (2 sources) Acute injury of kidney; Translations: [Acute kidney failure, unspecified] Onset: 01-02-2023 01-14-2023 Episodic Cancer of kidney and renal pelvis (13 sources) Clear cell carcinoma of kidney; Translations: [Malignant neoplasm of right kidney, except renal pelvis] Onset: 11-26-2017 11-26-2017 Chronic Conditions associated with dizziness or vertigo (1 source) Dizziness and giddiness; Translations: [Lightheaded] Onset: 01-02-2023 Episodic Essential hypertension (17 sources) Essential hypertension; Translations: [Essential (primary) hypertension] Onset: 11-26-2017 11-26-2017 Chronic Fluid and electrolyte disorders (3 sources) Hyperkalemia; Translations: [Hyperkalemia] Onset: 01-14-2023 Episodic Genitourinary symptoms and ill-defined conditions (2 sources) Acute retention of urine ; Translations: [Other retention of urine] Onset: 01-02-2023 12-05-2022 Episodic Hepatitis (13 sources) Chronic hepatitis C; Translations: [Chronic viral hepatitis C] Onset: 11-26-2017 11-26-2017 Chronic Malaise and fatigue (2 sources) Other malaise; Translations: [Other fatigue] Onset: 01-02-2023 Episodic Nausea and vomiting (1 source) Nausea; Translations: [Nausea] Onset: 01-02-2023 Episodic Other and ill-defined heart disease (1 source) Diastolic dysfunction; Translations: [Other ill-defined heart diseases] Chronic Other circulatory disease (1 source) Transient hypertension; Translations: [Elevated blood-pressure reading, without diagnosis of hypertension] Episodic Other connective tissue disease (1 source) Weakness of right arm; Translations: [Other symptoms and signs involving the musculoskeletal system] Episodic Other gastrointestinal disorders (1 source) Swollen abdomen; Translations: [Abdominal distension (gaseous)] 12-05-2022 Episodic Other lower respiratory disease (1 source) Dyspnea on exertion; Translations: [Shortness of breath] Episodic Other non-traumatic joint disorders (1 source) Shoulder pain; Translations: [Pain in right shoulder] Episodic Residual codes; unclassified (1 source) General body state finding; Translations: [Other general symptoms and signs] 12-05-2022 Episodic Residual codes; unclassified (1 source) History of clinical finding in subject; Translations: [Personal history of other medical treatment] 01-14-2023 Episodic Residual codes; unclassified (1 source) Personal history of other medical treatment; Translations: [History of recent hospitalization] Onset: 01-02-2023 Episodic Residual codes; unclassified (1 source) Other specified postprocedural states; Translations: [History of removal of ureteral stent] Onset: 01-02-2023 Episodic Spondylosis; intervertebral disc disorders; other back problems (1 source) Chronic low back pain; Translations: [Lumbago with sciatica, right side] Episodic Substance-related disorders (16 sources) Tobacco user; Translations: [Nicotine dependence, unspecified, uncomplicated] Onset: 11-26-2017 11-26-2017 Chronic Past or Other Problems Problem Classification Problem Date Documented Da te Episodic/Chronic Diabetes mellitus without complication (2 sources) Abnormal glucose level; Translations: [Other abnormal glucose] Onset: 08-31-2022 Episodic Lymphadenitis (2 sources) Lymphadenopathy; Translations: [Enlarged lymph nodes, unspecified] Onset: 02-12-2022 02-12-2022 Episodic Other circulatory disease (1 source) Elevated blood-pressure reading, without diagnosis of hypertension; Translations: [Transient hypertension] Onset: 03-02-2022 Episodic Other lower respiratory disease (1 source) Shortness of breath; Translations: [Shortness of breath on exertion] Onset: 06-01-2022 Episodic Other non-traumatic joint disorders (13 sources) Chronic pain of left upper limb; Translations: [Pain in left shoulder] Onset: 11-26-2017 11-26-2017 Episodic Other screening for suspected conditions (not mental disorders or infectious disease) (2 sources) Patient encounter status; Translations: [Encounter for screening for lipoid disorders] Onset: 08-31-2022 Episodic Results Test Name Value Interpretation Reference Range Facil ity Vital Signs Date Time Vital Sign Value Performing Clinician Faith lozada 01-14-2023 09:51-0500 Body temperature 97.59 [degF] Mini Older CAMPAIGN DEVELOPER.CASE MANAGERS Work Phone: [facility] 01-14-2023 09:51-0500 Body weight 81.19 kg Mini Older CAMPAIGN DEVELOPER.CASE MANAGERS Work Phone: [facility] 01-14-2023 09:51-0500 Diastolic blood pressure 90 mm[Hg] Mini Older CAMPAIGN DEVELOPER.CASE MANAGERS Work Phone: [facility] 01-14-2023 09:51-0500 Heart rate 80 /min Mini Older CAMPAIGN DEVELOPER.CASE MANAGERS Work Phone: [facility] 01-14-2023 09:51-0500 Respiratory rate 16 /min Mini Older CAMPAIGN DEVELOPER.CASE MANAGERS Work Phone: [facility] 01-14-2023 09:51-0500 SaO2% (BldA) [Mass fraction] 99 % Mini Older CAMPAIGN DEVELOPER.CASE MANAGERS Work Phone: [facility] 01-14-2023 09:51-0500 Systolic blood pressure 132 mm[Hg] Mini Older CAMPAIGN DEVELOPER.CASE MANAGERS Work Phone: [facility] 12-05-2022 15:42-0400 Body temperature 99.19 [degF] Allan Luci CAMPAIGN DEVELOPER.CASE MANAGERS Work Phone: [facility] 12-05-2022 15:42-0400 Body weight 83.92 kg Allan Luci CAMPAIGN DEVELOPER.CASE MANAGERS Work Phone: [facility] 12-05-2022 15:42-0400 Diastolic blood pressure 100 mm[Hg] Allan Luci CAMPAIGN DEVELOPER.CASE MANAGERS Work Phone: [facility] 12-05-2022 15:42-0400 Heart rate 81 /min Allan Luci CAMPAIGN DEVELOPER.CASE MANAGERS Work Phone: [facility] 12-05-2022 15:42-0400 SaO2% (BldA) [Mass fraction] 97 % Allan Luci CAMPAIGN DEVELOPER.CASE MANAGERS Work Phone: [facility] 12-05-2022 15:42-0400 Systolic blood pressure 148 mm[Hg] Allan Luci CAMPAIGN DEVELOPER.CASE MANAGERS Work Phone: [facility] 08-31-2022 09:10-0400 Diastolic blood pressure 82 mm[Hg] Mini Older CAMPAIGN DEVELOPER.CASE MANAGERS Work Phone: [facility] 08-31-2022 09:10-0400 Systolic blood pressure 122 mm[Hg] Mini Older CAMPAIGN DEVELOPER.CASE MANAGERS Work Phone: [facility] 08-31-2022 08:53-0400 Body weight 82.1 kg Mini Older CAMPAIGN DEVELOPER.CASE MANAGERS Work Phone: [facility] 08-31-2022 08:53-0400 Heart rate 80 /min Mini Older CAMPAIGN DEVELOPER.CASE MANAGERS Work Phone: [facility] 08-31-2022 08:53-0400 Respiratory rate 16 /min Mini Older CAMPAIGN DEVELOPER.CASE MANAGERS Work Phone: [facility] 03-02-2022 09:27-0500 Diastolic blood pressure 86 mm[Hg] Mini Older CAMPAIGN DEVELOPER.CASE MANAGERS Work Phone: [facility] 03-02-2022 09:27-0500 Heart rate 75 /min Mini Older CAMPAIGN DEVELOPER.CASE MANAGERS Work Phone: [facility] 03-02-2022 09:27-0500 Systolic blood pressure 127 mm[Hg] Mini Older CAMPAIGN DEVELOPER.CASE MANAGERS Work Phone: [facility] 03-02-2022 08:53-0500 Body weight 87.54 kg Mini Older CAMPAIGN DEVELOPER.CASE MANAGERS Work Phone: [facility] 03-02-2022 08:53-0500 Respiratory rate 16 /min Mini Older CAMPAIGN DEVELOPER.CASE MANAGERS Work Phone: [facility] 08-18-2021 10:06-0400 Body weight 86.18 kg Mini Older CAMPAIGN DEVELOPER.CASE MANAGERS Work Phone: [facility] 08-18-2021 10:06-0400 Diastolic blood pressure 92 mm[Hg] Mini Older CAMPAIGN DEVELOPER.CASE MANAGERS Work Phone: [facility] 08-18-2021 10:06-0400 Heart rate 72 /min Mini Older CAMPAIGN DEVELOPER.CASE MANAGERS Work Phone: [facility] 08-18-2021 10:06-0400 Respiratory rate 16 /min Mini Older CAMPAIGN DEVELOPER.CASE MANAGERS Work Phone: [facility] 08-18-2021 10:06-0400 Systolic blood pressure 132 mm[Hg] Mini Older CAMPAIGN DEVELOPER.CASE MANAGERS Work Phone: [facility] Encounters Encounter Date Encounter Type Care Provider Facility Start: 01-28-2023 Telephone encounter Mini Older CAMPAIGN DEVELOPER.CASE MANAGERS Work Phone: [facility] Procedures Date Procedure Procedure Detail Performing Clinician Start: 08-31-2022 Lipid 1996 panel - S noah or Plasma Allan Verma CAMPAIGN DEVELOPER.CASE MANAGERS Work Phone: Start: 02-12-2022 Us soft tissue head & neck real time imge docm Mini Older CAMPAIGN DEVELOPER.CASE MANAGERS Work Phone: Start: 05-04-2021 Adult depression screening assessment Anmol Kapoor PA-C Work Phone: Plan of Treatment Date Care Activity Detail Author Start: 09-01-2027 Lipid 1996 panel - S noah or Plasma Lipid Screening [facility] Start: 09-01-2027 LIPID SCREEN LIPID SCREEN [facility] Start: 05-04-2026 LIPID SCREEN LIPID SCREEN [facility] Start: 01-14-2026 Diabetes Screening Diabetes Screenin [facility] Start: 01-03-2026 Diabetes Screening Diabetes Screenin g [facility] Start: 08-31-2025 DIABETES SCREEN DIABETES SCREEN [facility] Start: 08-31-2025 Diabetes Screening Diabetes Screenin g [facility] Start: 03-02-2025 DIABETES SCREEN DIABETES SCREEN [facility] Start: 05-04-2024 DIABETES SCREEN DIABETES SCREEN [facility] Start: 02-04-2024 PROSTATE CANCER SCRE ENING DISCUSSION PROSTATE CANCER SCREENING DISCUSSION [facility] Start: 01-22-2024 Annual PCP Team Assistant Property Manager santos Disease Visit Annual PCP Team Chronic Disease Visit [facility] Start: 01-22-2024 Covid-19 Vaccine ( season) Covid-19 Vaccine ( season) [facility] Immunizations Immunization Date Immunization Notes Care Provider Fa moralesty 01-24-2021 COVID-19 vaccine (DEJAH) Allan Verma APRN.CASE MANAGERS Work Phone: [facility] 11-14-2020 hepatitis A and hepatitis B vaccine Anmol Dyko PA-C Work Phone: [facility] Work Phone: 06-21-2020 COVID-19 vaccine (DEJAH) Anmol Zhaoko PA-C Work Phone: [facility] Work Phone: 06-13-2020 hepatitis A and hepatitis B vaccine Anmol Dyko PA-C Work Phone: [facility] Work Phone: 05-09-2020 hepatitis A and hepatitis B vaccine Anmol Dyko PA-C Work Phone: [facility] Work Phone: 11-26-2017 influenza virus vaccine, unspecified formulation Allan Verma CAMPAIGN DEVELOPER.CASE MANAGERS Work Phone: [facility] 03-07-2007 tetanus toxoid, redu katina diphtheria toxoid, and acellular pertussis vaccine, adsorbed Anmol Dyko PA-C Work Phone: [facility] Payers Date Payer Category Payer Private Health Insurance [id number] 2013 Private Health Insurance SUJATHA [employer]OMAS MANAGED CHOICE POS [id number] 2013-Present [phone] [address] [place] [address] POS [id number] 2013 Private Health Insurance [id number] 1962 Unknown [id number] 1960 Unknown [id number] Social History Date Type Detail Facility Start: 11-26-2017 End: 02-12-2022 Tobacco smoking status NHIS Smokes tobacco daily [facility] History of tobacco use Cigarette Smoker C [facility] Start: 06-13-2020 End: 01-21-2023 Alcohol intake Current drinker of alcohol (finding) [facility] Start: 02-03-2020 End: 06-13-2020 Alcohol intake [facility] Work Phone: Start: 03-07-2007 History SDOH Alcohol Comment Weekends [facility] Start: 1960 Sex Assigned At Not on file C [facility] Start: 07-03-2021 End: 08-21-2021 Exposure to SARS-CoV-2 (event) Not sure [facility] Start: 11-26-2017 End: 02-12-2022 Tobacco use and exposure Smokeless tobacco non-user [facility] Work Phone: Start: 02-03-2020 End: 08-31-2022 Tobacco use panel [facility] Work Phone: Adult Depression Screening Assessment 0 [facility] Work Phone: Clinical Notes 03-16-2021 to 01-30-2023 Telephone Encounter - Mindi Cobian Ma - 01/30/2023 2:38 PM ESTTelephone Encounter - Mini Whiting APRN.BRIDGET - 01/30/2023 1:56 PM ESTTelephone Encounter - Lawanda Gray LPN - 01/28/2023 4:27 PM EST Note Date & Type Note Facility 01-30-2023 Miscellaneous Notes Formatting of this note might be differe nt from the original. Left detailed message on [employer]. No need to follow up with me as long as he is being followed by Dr. Gray Thank you Mini Whiting APRN.BRIDGET Pt's notified of same. questions if they need to keep 2 week f/u appointment on 02/04/23. Dr Gray is addressing issues and Dr Gray is doing surgery on pt 02/13. Please advise. Ok to leave message. Lawanda Gray LPN The cipro should be effective against this infection. Hopefully all his symptoms improve quickly. Thank you Mini Whiting APRN.BRIDGET Pt and his called and is notified of providers results and instructions. Pt voices understanding. He was just put on Ciprofloxacin today. Pt states he still has a bad gut, he said he had nausea pretty consistently since this issue started, and fatigue. He reports he has just been sitting around doing nothing all day. Payton Mckenna, RN Urine cultures came back positive. Was he put on any new antibioitcs since last seeing me? If so what were they. How is he feeling? Thank you Mini Whiting APRN.BRIDGET documented in this encounter [facility] 01-21-2023 Note HNO ID: [id number] Author: Mini Whiting APRN.CNP Service: ? Author Type: Nurse Practitioner Type: Progress Notes Filed: 01/21/2023 11:13 AM Note Text: CC: Patient presents with: Follow Up HPI Prasanth Aguirre is a 62 year old male who presents today for follow up. Has been hospitalized twice in the last 6 weeks with ureteral stent placement due to reported kink and urinary retention resulting in LEN. Had stent removed, then within a week symptoms began again. Was on Keflex a week ago finishing 4 days ago, still with ureteral stent in place, and does not see urology until next Saturday. Also history of right nephrectomy due to renal cancer. Reports pain with urination, ongoing low back pain, nausea, decreased appetite, diarrhea this morning, lightheaded, chills, fatigue, and malaise. Also feels like over the past few days his urination is decreasing. Denies vomiting, abdominal pain, shortness of breath, chest pain, cough, wheezing, edema, palpitations, syncope, or weakness. REVIEW OF SYSTEMS See HPI PAST MEDICAL HISTORY Diagnosis Date Cancer of kidney, right (HCC) 05/2017 Cannabis abuse ETOH abuse Hepatitis C Perforation of colon (HCC) 10/29/2011 w/ abscess Tobacco use disorder PAST SURGICAL HISTORY Procedure Laterality Date ARTHROSCOPY KNEE DIAGNOSTIC W/WO SYNOVIAL BX SPX Right 1987 Arthroscopy, knee CARPAL TUNNEL RIGHT WRIST 1989 COLOSTOMY/SKIN LEVEL CECOSTOMY 2011 LAPAROSCOPY RADICAL NEPHRECTOMY 05/2017 ROTATOR CUFF REPAIR Left 09/15/2018 [facility] SIMPLE REVISION COLOSTOMY ALLERGIES Patient has no known allergies. MEDICATIONS metoprolol succinate ER (TOPROL XL) 100 mgTake 1 tablet by mouth once daily.Disp: 30 tabletRfl: 11 losartan (COZAAR) 100 mg tabletTake 1 tablet by mouth once daily.Disp: 30 tabletRfl: 11 gabapentin (NEURONTIN) 400 mg capsuleTake 1 capsule by mouth twice daily for 180 days.Disp: 180 capsuleRfl: 1 Blood Pressure Monitor (BLOOD PRESSURE KIT)1 Each once daily.Disp: 1 KitRfl: 0 FAMILY HISTORY Problem Relation Age of Onset None Mother None Father None Brother None Brother None Brother Social History Tobacco Use Smoking status: Every Day Packs/day: 0.50 Years: 30.00 Additional pack years: 0.00 Total pack years: 15.00 Types: Cigarettes Smokeless tobacco: Never Vaping Use Vaping Use: Never used Substance Use Topics Alcohol use: Yes Alcohol/week: 12.0 standard drinks of alcohol Types: 12 Cans of Beer (12oz) per week Comment: Weekends Drug use: Yes Types: Marijuana PHYSICAL EXAM BP 124/88 (BP Site: Left Arm, BP Position: Sitting, BP Cuff Size: Large Adult) Pulse 72 Resp 16 Wt 80.7 kg (178 lb) BMI 28.73 kg/m? General Appearance: tired and uncomfortable, alert Skin: Skin color, texture, turgor normal for age; Eyes: conjunctiva pink and moist, no icterus, sclera white, non-injected Lungs: Lungs clear to auscultation. No wheezing, rhonchi, rales. Heart: RRR without murmur, gallop, or rubs. No ectopy Abdomen: Abdomen soft, non-tender. Bowel sounds normal. No masses, organomegaly, Negative CVA tenderness Health maintenance reviewed with patient: BP Controlled (<130/80) Never done RSV Vaccine(1 - 1-dose 60+ series) Never done DTaP,Tdap,Td Vaccine(2 - Td or Tdap) due on 02/12/2023 Colorectal Cancer Screening due on 02/12/2023 Shingrix Vaccine(1 of 2) due on 02/12/2023 Influenza Vaccine(1) due on 08/25/2023 Covid-19 Vaccine(3 - 2022- season) due on 01/22/2024 Annual PCP Team Chronic Disease Visit due on 01/15/2024 Prostate Cancer Screening Discussion due on 02/04/2024 Diabetes Screening due on 01/14/2026 Lipid Screening due on 09/01/2027 Hepatitis B Vaccine Completed Hepatitis A Vaccine Completed Depression Assessment Completed Hepatitis C Screening Completed HPV Vaccine Aged Out HIV Screening Discontinued Pneumococcal Vaccine Discontinued DATA REVIEWED: Most recent labs ASSESSMENT/PLAN: 1. Pain with urination - ICD9: 788.1, ICD10: R30.9 (primary diagnosis) - UA showing blood, protein, and trace leuks - concern is for possible obstruction of ureteral stent. With his symptoms possible infection. Called Dr. Carvajal office and patient instructed to go straight there for further evaluation - follow up in 2 weeks or earlier if needed - has been off work for over a month now and will be faxing [facility] paperwork to office to be filled out. - UA DIP, URINE (POC) - URINE CULTURE 2. Nausea - ICD9: 787.02, ICD10: R11.0 As aove - UA DIP, URINE (POC) - URINE CULTURE 3. Ureteral stent present - ICD9: V45.89, ICD10: Z96.0 See #1 - UA DIP, URINE (POC) - URINE CULTURE 4. Malaise and fatigue - ICD9: 780.79, ICD10: R53.81, R53.83 See #1 5. Lightheaded - ICD9: 780.4, ICD10: R42 See #1 6. Decreased urination - ICD9: 788.5, ICD10: R34 See #1 Prescription instructions reviewed with patient as applicable. Potential red flag symptoms discussed (more content not included)... [facility] 01-14-2023 Note HNO ID: [id number] Author: Mini Whiting APRN.CASE MANAGERS Service: ? Author Type: Nurse Practitioner Type: Progress Notes Filed: 01/14/2023 10:23 AM Note Text: CC: Patient presents with: Recheck: ER follow up HPI Prasanth Aguirre is a 62 year old male who presents today for hospital follow-up. Facility: [facility] Date of visit: 01/11/23 Reason for visit: unable to urinate Hospital course: had a stent placed for kink , GFR decreased in the 30s Current symptoms: Is on cephalexin TID for [address] Gray with urology 01/28. This is his second stent placement in the past month. Still with intermittent Left flank pain., chills, nausea, dizziness, fatigued, and malaise. Also feels like he isn't urinating as much as he could. Thinks symptoms might be getting better. Denies fever, vomiting, bowel changes, shortness of breath, or chest pressure. REVIEW OF SYSTEMS Respiratory: no cough, no wheezing, no shortness of breath, no hemoptysis Cardiovascular: no chest pain, no chest pressure, no palpitations, and no swelling Neurologic: No headache, weakness, numbness, tingling, memory loss, syncope. PAST MEDICAL HISTORY Diagnosis Date Cancer of kidney, right (HCC) 05/2017 Cannabis abuse ETOH abuse Hepatitis C Perforation of colon (HCC) 10/29/2011 w/ abscess Tobacco use disorder PAST SURGICAL HISTORY Procedure Laterality Date ARTHROSCOPY KNEE DIAGNOSTIC W/WO SYNOVIAL BX SPX Right 1987 Arthroscopy, knee CARPAL TUNNEL RIGHT WRIST 1989 COLOSTOMY/SKIN LEVEL CECOSTOMY 2011 LAPAROSCOPY RADICAL NEPHRECTOMY 05/2017 ROTATOR CUFF REPAIR Left 09/15/2018 [facility] SIMPLE REVISION COLOSTOMY ALLERGIES Patient has no known allergies. MEDICATIONS metoprolol succinate ER (TOPROL XL) 100 mgTake 1 tablet by mouth once daily.Disp: 30 tabletRfl: 11 losartan (COZAAR) 100 mg tabletTake 1 tablet by mouth once daily.Disp: 30 tabletRfl: 11 gabapentin (NEURONTIN) 400 mg capsuleTake 1 capsule by mouth twice daily for 180 days.Disp: 180 capsuleRfl: 1 Blood Pressure Monitor (BLOOD PRESSURE KIT)1 Each once daily.Disp: 1 KitRfl: 0 FAMILY HISTORY Problem Relation Age of Onset None Mother None Father None Brother None Brother None Brother Social History Tobacco Use Smoking status: Every Day Packs/day: 0.50 Years: 30.00 Additional pack years: 0.00 Total pack years: 15.00 Types: Cigarettes Smokeless tobacco: Never Vaping Use Vaping Use: Never used Substance Use Topics Alcohol use: Yes Alcohol/week: 30.0 standard drinks of alcohol Types: 12 Cans of Beer (12oz) per week Comment: Weekends Drug use: Yes Types: Marijuana PHYSICAL EXAM BP 132/90 Pulse 80 Temp 36.4 ?C (97.6 ?F) (Temporal) Resp 16 Wt 81.2 kg (179 lb) SpO2 99% BMI 28.89 kg/m? General Appearance: well appearing, in no acute distress, alert Pysch: mood and affect broad and appropriate Eyes: conjunctiva pink and moist, no icterus, sclera white, non-injected Lungs: Lungs clear to auscultation. No wheezing, rhonchi, rales. Heart: RRR without murmur, gallop, or rubs. No ectopy Abdomen: Abdomen soft, non-tender. Bowel sounds normal. No masses, organomegaly BP Controlled (<130/80) Never done RSV Vaccine(1 - 1-dose 60+ series) Never done Covid-19 Vaccine(3 - 2022- season) due on 10/26/2022 DTaP,Tdap,Td Vaccine(2 - Td or Tdap) due on 02/12/2023 Colorectal Cancer Screening due on 02/12/2023 Shingrix Vaccine(1 of 2) due on 02/12/2023 Influenza Vaccine(1) due on 08/25/2023 Annual PCP Team Chronic Disease Visit due on 01/03/2024 Prostate Cancer Screening Discussion due on 02/04/2024 Diabetes Screening due on 01/03/2026 Lipid Screening due on 09/01/2027 Hepatitis B Vaccine Completed Hepatitis A Vaccine Completed Depression Assessment Completed Hepatitis C Screening Completed HPV Vaccine Aged Out HIV Screening Discontinued Pneumococcal Vaccine Discontinued DATA REVIEWED: Outside chart from [facility] reviewed. ASSESSMENT/PLAN: 1. History of recent hospitalization - ICD9: V13.9, ICD10: Z92.89 (primary diagnosis) - continue with recommendations by urology and current antibiotic - if no improvement in malaise or other symptoms, may need different antibiotic - follow up next week - note to stay off work the rest of this week given - go to ER for inability to urinate, confusion, lethargy, fever, or any other urgent concerns. - CBC + DIFF - BASIC METABOLIC PNL 2. LEN (acute kidney injury) (HCC) - ICD9: 584.9, ICD10: N17.9 As above - CBC + DIFF - BASIC METABOLIC PNL Prescription instructions reviewed with patient as applicable. Potential red flag symptoms discussed with the patient. Reviewed appropriate action plan to take if red flag symptoms occur. Patient agreeable to treatment plan. Mini Whiting APRN.[facility] 01-14-2023 History of Present illness Narrative Formatting of this note is different fro m the original. CC: Patient presents with: Recheck: ER follow up HPI Prasanth Aguirre is a 62 year old male who presents today for hospital follow-up. Facility: [facility] Date of visit: 01/11/23 Reason for visit: unable to urinate Hospital course: had a stent placed for kink , GFR decreased in the 30s Current symptoms: Is on cephalexin TID for [address] Gray with urology 01/28. This is his second stent placement in the past month. Still with intermittent Left flank pain., chills, nausea, dizziness, fatigued, and malaise. Also feels like he isn't urinating as much as he could. Thinks symptoms might be getting better. Denies fever, vomiting, bowel changes, shortness of breath, or chest pressure. REVIEW OF SYSTEMS Respiratory: no cough, no wheezing, no shortness of breath, no hemoptysis Cardiovascular: no chest pain, no chest pressure, no palpitations, and no swelling Neurologic: No headache, weakness, numbness, tingling, memory loss, syncope. PAST MEDICAL HISTORY Diagnosis Date Cancer of kidney, right (HCC) 05/2017 Cannabis abuse ETOH abuse Hepatitis C Perforation of colon (HCC) 10/29/2011 w/ abscess Tobacco use disorder PAST SURGICAL HISTORY Procedure Laterality Date ARTHROSCOPY KNEE DIAGNOSTIC W/WO SYNOVIAL BX SPX Right 1987 Arthroscopy, knee CARPAL TUNNEL RIGHT WRIST 1989 COLOSTOMY/SKIN LEVEL CECOSTOMY 2011 LAPAROSCOPY RADICAL NEPHRECTOMY 05/2017 ROTATOR CUFF REPAIR Left 09/15/2018 [facility] SIMPLE REVISION COLOSTOMY ALLERGIES Patient has no known allergies. MEDICATIONS metoprolol succinate ER (TOPROL XL) 100 mg^Take 1 tablet by mouth once daily.^Disp: 30 tablet^Rfl: 11 losartan (COZAAR) 100 mg tablet^Take 1 tablet by mouth once daily.^Disp: 30 tablet^Rfl: 11 gabapentin (NEURONTIN) 400 mg capsule^Take 1 capsule by mouth twice daily for 180 days.^Disp: 180 capsule^Rfl: 1 Blood Pressure Monitor (BLOOD PRESSURE KIT)^1 Each once daily.^Disp: 1 Kit^Rfl: 0 FAMILY HISTORY Problem Relation Age of Onset None Mother None Father None Brother None Brother None Brother Social History Tobacco Use Smoking status: Every Day Packs/day: 0.50 Years: 30.00 Additional pack years: 0.00 Total pack years: 15.00 Types: Cigarettes Smokeless tobacco: Never Vaping Use Vaping Use: Never used Substance Use Topics Alcohol use: Yes Alcohol/week: 30.0 standard drinks of alcohol Types: 12 Cans of Beer (12oz) per week Comment: Weekends Drug use: Yes Types: Marijuana PHYSICAL EXAM BP 132/90 Pulse 80 Temp 36.4 C (97.6 F) (Temporal) Resp 16 Wt 81.2 kg (179 lb) SpO2 99% BMI 28.89 kg/m General Appearance: well appearing, in no acute distress, alert Pysch: mood and affect broad and appropriate Eyes: conjunctiva pink and moist, no icterus, sclera white, non-injected Lungs: Lungs clear to auscultation. No wheezing, rhonchi, rales. Heart: RRR without murmur, gallop, or rubs. No ectopy Abdomen: Abdomen soft, non-tender. Bowel sounds normal. No masses, organomegaly BP Controlled (<130/80) Never done RSV Vaccine( - -dose 60+ series) Never done Covid-19 Vaccine(3 - season) due on 10/26/2022 DTaP,Tdap,Td Vaccine(2 - Td or Tdap) due on 02/12/2023 Colorectal Cancer Screening due on 02/12/2023 Shingrix Vaccine(1 of 2) due on 02/12/2023 Influenza Vaccine(1) due on 08/25/2023 Annual PCP Team Chronic Disease Visit due on 01/03/2024 Prostate Cancer Screening Discussion due on 02/04/2024 Diabetes Screening due on 01/03/2026 Lipid Screening due on 09/01/2027 Hepatitis B Vaccine Completed Hepatitis A Vaccine Completed Depression Assessment Completed Hepatitis C Screening Completed HPV Vaccine Aged Out HIV Screening Discontinued Pneumococcal Vaccine Discontinued DATA REVIEWED: Outside chart from [facility] reviewed. ASSESSMENT/PLAN: 1. History of recent hospitalization - ICD9: V13.9, ICD10: Z92.89 (primary diagnosis) - continue with recommendations by urology and current antibiotic - if no improvement in malaise or other symptoms, may need different antibiotic - follow up next week - note to stay off work the rest of this week given - go to ER for inability to urinate, confusion, lethargy, fever, or any other urgent concerns. - CBC + DIFF - BASIC METABOLIC PNL 2. LEN (acute kidney injury) (HCC) - ICD9: 584.9, ICD10: N17.9 As above - CBC + DIFF - BASIC METABOLIC PNL Prescription instructions reviewed with patient as applicable. Potential red flag symptoms discussed with the patient. Reviewed appropriate action plan to take if red flag symptoms occur. Patient agreeable to treatment plan. Mini Whiting APRN.CNP documented in this encounter [facility] 01-02-2023 Note HNO ID: [id number] Author: Mini Whiting APRN.CNP Service: ? Author Type: Nurse Practitioner Type: Progress Notes Filed: 01/02/2023 6:29 PM Note Text: CC: Patient presents with: Recheck: Hosp follow up, stents HPI Prasanth Agurire is a 62 year old male who presents today for Hospital follow-up. Facility: [facility] Date of visit: 12/05-12/07 Reason for visit: had not urinated in over 28 hours, felt dizzy, and has only one kidney Hospital course: had a ureteral stent placed for kink in ureter. Highest creatinine was 7.46 with a potassium of 6.1. After ureteral stent placed creatinine decreased. On discharge, creatinine of 1.69, creat clearance of 44.97 and GFR of 44. Potassium 4.2 sodium of 135. Current symptoms: last saw urology yesterday and had stent removed. Is urinating often, in small amounts, and andrews. Does feel he is emptying his bladder. Was unable to provide a urine sample yesterday with urology which was prescribed well before that so was put on Cipro for 3 days which did not seem to help. Finished around 5 days ago. Still with intermittent dizziness, lightheadedness, with nausea, chills, fatigue, and just doesn't feel well. Denies fever, abdominal pain, vomiting, bowel changes, syncope, weakness, chest pain, headaches, edema, palpitations, or shortness of breath. REVIEW OF SYSTEMS See HPI PAST MEDICAL HISTORY Diagnosis Date Cancer of kidney, right (HCC) 05/2017 Cannabis abuse ETOH abuse Hepatitis C Perforation of colon (HCC) 10/29/2011 w/ abscess Tobacco use disorder PAST SURGICAL HISTORY Procedure Laterality Date ARTHROSCOPY KNEE DIAGNOSTIC W/WO SYNOVIAL BX SPX Right 1987 Arthroscopy, knee CARPAL TUNNEL RIGHT WRIST 1989 COLOSTOMY/SKIN LEVEL CECOSTOMY 2011 LAPAROSCOPY RADICAL NEPHRECTOMY 05/2017 ROTATOR CUFF REPAIR Left 09/15/2018 [facility] SIMPLE REVISION COLOSTOMY ALLERGIES Patient has no known allergies. MEDICATIONS metoprolol succinate ER (TOPROL XL) 100 mgTake 1 tablet by mouth once daily.Disp: 30 tabletRfl: 11 losartan (COZAAR) 100 mg tabletTake 1 tablet by mouth once daily.Disp: 30 tabletRfl: 11 gabapentin (NEURONTIN) 400 mg capsuleTake 1 capsule by mouth twice daily for 180 days.Disp: 180 capsuleRfl: 1 Blood Pressure Monitor (BLOOD PRESSURE KIT)1 Each once daily.Disp: 1 KitRfl: 0 FAMILY HISTORY Problem Relation Age of Onset None Mother None Father None Brother None Brother None Brother Social History Tobacco Use Smoking status: Every Day Packs/day: 0.50 Years: 30.00 Additional pack years: 0.00 Total pack years: 15.00 Types: Cigarettes Smokeless tobacco: Never Vaping Use Vaping Use: Never used Substance Use Topics Alcohol use: Yes Alcohol/week: 30.0 standard drinks of alcohol Types: 12 Cans of Beer (12oz) per week Comment: Weekends Drug use: Yes Types: Marijuana PHYSICAL EXAM BP 144/88 Pulse 78 Temp 36.9 ?C (98.4 ?F) (Temporal) Resp 16 Wt 83.5 kg (184 lb) SpO2 98% BMI 29.70 kg/m? General Appearance: well appearing, in no acute distress, alert Pysch: mood and affect broad and appropriate Skin: Skin color, texture, turgor normal for age; Eyes: conjunctiva pink and moist, no icterus, sclera white, non-injected Lungs: Lungs clear to auscultation. No wheezing, rhonchi, rales. Heart: RRR without murmur, gallop, or rubs. No ectopy Abdomen: Abdomen soft, non-tender. Bowel sounds normal. No masses, organomegaly, Negative CVA tenderness Neurological: Gait normal. speech normal, mental status intact, muscle tone normal, muscle strength normal BP Controlled (<130/80) Never done RSV Vaccine(1 - 1-dose 60+ series) Never done Covid-19 Vaccine(3 - 2022- season) due on 10/26/2022 DTaP,Tdap,Td Vaccine(2 - Td or Tdap) due on 02/12/2023 Colorectal Cancer Screening due on 02/12/2023 Shingrix Vaccine(1 of 2) due on 02/12/2023 Influenza Vaccine(1) due on 08/25/2023 Annual PCP Team Chronic Disease Visit due on 12/06/2023 Prostate Cancer Screening Discussion due on 02/04/2024 Diabetes Screening due on 08/31/2025 Lipid Screening due on 09/01/2027 Hepatitis B Vaccine Completed Hepatitis A Vaccine Completed Depression Assessment Completed Hepatitis C Screening Completed HPV Vaccine Aged Out HIV Screening Discontinued Pneumococcal Vaccine Discontinued DATA REVIEWED: Outside chart from [facility] reviewed. ASSESSMENT/PLAN: 1. History of recent hospitalization - ICD9: V13.9, ICD10: Z92.89 (primary diagnosis) Ua with protein. With his recent history and current symptoms will evaluate further - BASIC METABOLIC PNL - CBC + DIFF - URINALYSIS, WITH MICROSCOPIC - URINE CULTURE 2. LEN (acute kidney injury) (HCC) - ICD9: 584.9, ICD10: N17.9 As above - BASIC METABOLIC PNL - CBC + DIFF - URINALYSIS, WITH MICROSCOPIC - URINE CULTURE 3. 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 [facility] 12-05-2022 Note HNO ID: [id number] Author: Allan Verma APRN.[employer] Service: ? Author Type: Nurse Practitioner Type: Progress Notes Filed: 12/05/2022 4:57 PM Note Text: SUBJECTIVE Prasanth Aguirre is a 62 year old male here today for acute concern. Chief Complaint Patient presents with: Dizziness: Feels off balance x 4 days HPI Prasanth Aguirre is a 62 year old male. Patient of Dr. Foote. Here today for concerns of dizziness. Onset x4 days ago. Was in [place]. Noticed some dizziness, some stomach discomfort. Only has x1 kidney, some urinary issues. Tired, run down, tired, chills. Only kidney is on the left. Able to urinate yesterday with no problems. Has not urinated all day, none since last night. 16+ hours since urinating. Feels he needs to pee at times. His medications were reviewed today and his list is now up to date. Medications Current Outpatient Medications Medication Sig Blood Pressure Monitor (BLOOD PRESSURE KIT) 1 Each once daily. gabapentin (NEURONTIN) 400 mg capsule Take 1 capsule by mouth twice daily for 180 days. losartan (COZAAR) 100 mg tablet Take 1 tablet by mouth once daily. metoprolol succinate ER (TOPROL XL) 100 mg Take 1 tablet by mouth once daily. Current Facility-Administered Medications Medication Dose Route Frequency perflutren lipid microspheres 1.3 mL in NaCl (PF) 0.9% 10 mL injection (DEFINITY) INTRAVENOUS DIRECTED PRN sodium chloride 0.9 % (flush) 10 mL (BD POSIFLUSH) 10 mL INTRAVENOUS DIRECTED PRN ALLERGIES No Known Allergies ACTIVE PROBLEM LIST Renal Cell Carcinoma of Right Kidney (Hcc) - 11/26/2017 Comment: He had hematuria, had a kidney US in april 2017, had resection done May 29, 2017, at [facility], it was done by Dr. Gray. He is getting his lungs checked in 6 months. Essential Hypertension - 11/26/2017 Comment: Essential hypertension diagnosed in 2018 Chronic Hepatitis C Without Hepatic Coma (Hcc) - 11/26/2017 Comment: Found at the time of surgery.. Treated by Dr White, he took 2 months of treatment and has a month left, of epclusa. Dr husain was his GI, and he did the fibroscan, was found to have fibrosis which has resolved with 2 months of Treatment. Viral count was negative SIDE EFFECTS include fatigue so he takes medication at night time. Chronic Left Shoulder Pain - 11/26/2017 Comment: He fell down on the ice after slipping and landed on left shoulder, he did not go to the er, it hurt, it never got better. He can do most movements but it hurts him most of the time, hurts like a toothache when he tries to sleep on the left side, carrying or lifting something makes it hurt, 10/04. He has taken some medication in the past for it. Tobacco Use Disorder Comment: Smoking since age 11, one of his brothers offered him it and since then he has been smoking. He smoked a pack a day for 40 years, currently doing half a pack Social History Tobacco Use Smoking status: Every Day Packs/day: 0.50 Years: 30.00 Additional pack years: 0.00 Total pack years: 15.00 Types: Cigarettes Smokeless tobacco: Never Vaping Use Vaping Use: Never used Substance Use Topics Alcohol use: Yes Alcohol/week: 30.0 standard drinks of alcohol Types: 12 Cans of Beer (12oz) per week Comment: Weekends Drug use: Yes Types: Marijuana Review of Systems Constitutional: Positive for chills and fatigue. Respiratory: Negative. Cardiovascular: Negative. Genitourinary: Positive for decreased urine volume and difficulty urinating. OBJECTIVE BP 148/100 Pulse 81 Temp 99.2 Wt 185 lb (83.9kg) SpO2 97% Physical Exam Vitals and nursing note reviewed. Constitutional: General: He is awake. He is not in acute distress. Appearance: Normal appearance. He is well-developed and well-groomed. He is not ill-appearing, toxic-appearing or diaphoretic. HENT: Head: Normocephalic. Right Ear: External ear normal. Left Ear: External ear normal. Nose: Nose normal. Eyes: General: Vision grossly intact. Conjunctiva/sclera: Conjunctivae normal. Pupils: Pupils are equal, round, and reactive to light. Neck: Vascular: No JVD. Trachea: Trachea normal. Cardiovascular: Rate and Rhythm: Normal rate and regular rhythm. Pulses: Normal pulses. Heart sounds: Normal heart sounds. No murmur heard. Pulmonary: Effort: Pulmonary effort is normal. No accessory muscle usage, prolonged expiration or respiratory distress. Breath sounds: Normal breath sounds. Abdominal: General: There is distension. Tenderness: There is abdominal tenderness in the suprapubic area. There is no right CVA tenderness or left CVA tenderness. Musculoskeletal: Cervical back: Neck supple. Skin: General: Skin is warm and dry. Capillary Refill: Capillary refill takes less than 2 seconds. Neurological: General: No focal deficit present. Mental Status: He is alert and oriented to person, place, and time. Mental status is at baseline. Psyc (more content not included)... [facility] 12-05-2022 History of Present illness Narrative Formatting of this note is different fro m the original. SUBJECTIVE Prasanth Aguirre is a 62 year old male here today for acute concern. Chief Complaint Patient presents with: Dizziness: Feels off balance x 4 days HPI Prasanth Aguirre is a 62 year old male. Patient of Dr. Foote. Here today for concerns of dizziness. Onset x4 days ago. Was in [place]. Noticed some dizziness, some stomach discomfort. Only has x1 kidney, some urinary issues. Tired, run down, tired, chills. Only kidney is on the left. Able to urinate yesterday with no problems. Has not urinated all day, none since last night. 16+ hours since urinating. Feels he needs to pee at times. His medications were reviewed today and his list is now up to date. Medications Current Outpatient Medications Medication Sig Blood Pressure Monitor (BLOOD PRESSURE KIT) 1 Each once daily. gabapentin (NEURONTIN) 400 mg capsule Take 1 capsule by mouth twice daily for 180 days. losartan (COZAAR) 100 mg tablet Take 1 tablet by mouth once daily. metoprolol succinate ER (TOPROL XL) 100 mg Take 1 tablet by mouth once daily. Current Facility-Administered Medications Medication Dose Route Frequency perflutren lipid microspheres 1.3 mL in NaCl (PF) 0.9% 10 mL injection (DEFINITY) INTRAVENOUS DIRECTED PRN sodium chloride 0.9 % (flush) 10 mL (BD POSIFLUSH) 10 mL INTRAVENOUS DIRECTED PRN ALLERGIES No Known Allergies ACTIVE PROBLEM LIST Renal Cell Carcinoma of Right Kidney (Hcc) - 11/26/2017 Comment: He had hematuria, had a kidney US in april 2017, had resection done May 29, 2017, at [facility], it was done by Dr. Gray. He is getting his lungs checked in 6 months. Essential Hypertension - 11/26/2017 Comment: Essential hypertension diagnosed in 2018 Chronic Hepatitis C Without Hepatic Coma (Hcc) - 11/26/2017 Comment: Found at the time of surgery.. Treated by Dr White, he took 2 months of treatment and has a month left, of epclusa. Dr husain was his GI, and he did the fibroscan, was found to have fibrosis which has resolved with 2 months of Treatment. Viral count was negative SIDE EFFECTS include fatigue so he takes medication at night time. Chronic Left Shoulder Pain - 11/26/2017 Comment: He fell down on the ice after slipping and landed on left shoulder, he did not go to the er, it hurt, it never got better. He can do most movements but it hurts him most of the time, hurts like a toothache when he tries to sleep on the left side, carrying or lifting something makes it hurt, 10/04. He has taken some medication in the past for it. Tobacco Use Disorder Comment: Smoking since age 11, one of his brothers offered him it and since then he has been smoking. He smoked a pack a day for 40 years, currently doing half a pack Social History Tobacco Use Smoking status: Every Day Packs/day: 0.50 Years: 30.00 Additional pack years: 0.00 Total pack years: 15.00 Types: Cigarettes Smokeless tobacco: Never Vaping Use Vaping Use: Never used Substance Use Topics Alcohol use: Yes Alcohol/week: 30.0 standard drinks of alcohol Types: 12 Cans of Beer (12oz) per week Comment: Weekends Drug use: Yes Types: Marijuana Review of Systems Constitutional: Positive for chills and fatigue. Respiratory: Negative. Cardiovascular: Negative. Genitourinary: Positive for decreased urine volume and difficulty urinating. OBJECTIVE BP 148/100 Pulse 81 Temp 99.2 Wt 185 lb (83.9kg) SpO2 97% Physical Exam Vitals and nursing note reviewed. Constitutional: General: He is awake. He is not in acute distress. Appearance: Normal appearance. He is well-developed and well-groomed. He is not ill-appearing, toxic-appearing or diaphoretic. HENT: Head: Normocephalic. Right Ear: External ear normal. Left Ear: External ear normal. Nose: Nose normal. Eyes: General: Vision grossly intact. Conjunctiva/sclera: Conjunctivae normal. Pupils: Pupils are equal, round, and reactive to light. Neck: Vascular: No JVD. Trachea: Trachea normal. Cardiovascular: Rate and Rhythm: Normal rate and regular rhythm. Pulses: Normal pulses. Heart sounds: Normal heart sounds. No murmur heard. Pulmonary: Effort: Pulmonary effort is normal. No accessory muscle usage, prolonged expiration or respiratory distress. Breath sounds: Normal breath sounds. Abdominal: General: There is distension. Tenderness: There is abdominal tenderness in the suprapubic area. There is no right CVA tenderness or left CVA tenderness. Musculoskeletal: Cervical back: Neck supple. Skin: General: Skin is warm and dry. Capillary Refill: Capillary refill takes less than 2 seconds. Neurological: General: No focal deficit present. Mental Status: He is alert and oriented to person, place, and time. Mental status is at baseline. Psychiatric: Attention and Perception: Attention and perception normal. Mood and Affect: Mood and affect normal. Speech: Speech normal. Behavior: Behavior normal. Behavior is cooperative. Thought Content: Thought content normal. Cognition and Memory: Cognition and memory normal. Judgment: Judgment normal. ASSESSMENT/PLAN: 1. Acute urinary retention - ICD9: 788.29, ICD10: R33.8 (primary diagnosis) Concerns that he might have a UTI or other infection but overall the most significant issue at hand is that he cannot urinate, is distended and already has impaired renal function due to prior nephrectomy. He was unable to void in office. Both he and agree with ER eval to ultrasound bladder and possibly catheterize. He is already established with urology and they are affiliated with [facility]. He is planning to go to [facility] directly from our office via private vehicle, declines need for squad transport. Report called to ER provider. - UA DIP, URINE (POC) - UA DIP B/O 2. Abdominal distension - ICD9: 787.3, ICD10: R14.0 3. Feeling unwell - ICD9: 780.99, ICD10: R68.89 Portions of this note have been entered by ancillary staff. I have reviewed and when necessary edited, so that they are an adequate record of my encounter with this patient Please note that parts of this document were created using voice recognition software and therefore may contain grammatical errors. Patient verbalizes understanding of instructions from today's visit and in agreement with treatment plan. Questions answered. Agrees to call the office if questions, concerns of issues with acute symptoms not improving or if they worsen. See diagnoses and orders for additional plan(s). Allergies and medications were reviewed, list was updated, and refills given if needed. Past medical, surgical, social, and family history reviewed and updated as appropriate. Encouraged proper diet & exercise as well as compliance with taking medications. Age-appropriate health preventative measures were discussed. No follow-ups on file. Allan Verma APRN-BRIDGET documented in this encounter [facility] 09-03-2022 Miscellaneous Notes Formatting of this note might be differe nt from the original. Scarlet notified. Please call patient and let him know his A1c is 5.7 (right on the lower end of prediabetes)-- all other labs look stable. Encouraged healthy, balanced diet and routine exercise. Avoid processed foods, trans fats, vegetable oils and simple sugars. Minimize carb intake (pizzas, pastas, breads, desserts, sugary beverages, etc). Watch portion sizes. Stacie Diana PA-C documented in this encounter [facility] 08-31-2022 Note HNO ID: [id number] Author: Mini Whiting APRN.CNP Service: ? Author Type: Nurse Practitioner Type: Progress Notes Filed: 08/31/2022 9:45 AM Note Text: CC: Patient presents with: Recheck: 3 month follow up HPI Prasanth Aguirre is a 62 year old male who presents today for blood pressure follow up. Still with some shortness of breath on exertion. 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 Not severe enough to make him stop the activity. Chronic nonproductive cough without change. Still smoking 5-6 cigarrettes a day and a marijuana joint often. Recent ECHO unremarkable except Grade 1 level diastolic dysfunction. Denies wheezing, fever, chills, chest pressure, edema, change in appetite, or change in weight. HTN: Mr. Aguirre indicates that he is feeling well and denies any symptoms referable to elevated blood pressure. Specifically denies headache, chest pain, palpitations, and peripheral edema. Patient denies any side effects of his medication(s) and is compliant with their regimen. He does not check BP's generally. Prasanth denies regular aerobic exercise. He watches his diet for sodium, low fat and low cholesterol most of the time. Last 3 Encounter BP Readings: Date: BP: 08/31/2022 122/82 06/01/2022 124/78 03/02/2022 127/86 REVIEW OF SYSTEMS General: no fevers, no chills, no night sweats, no recurrent infections, no change in appetite, no change in energy, and no significant changes in weight Respiratory: See HPI Cardiovascular: no chest pain, no chest pressure, no palpitations, and no swelling Neurologic: No headache, weakness, numbness, tingling, dizziness, memory loss, syncope. PAST MEDICAL HISTORY Diagnosis Date Cancer of kidney, right (HCC) 05/2017 Cannabis abuse ETOH abuse Hepatitis C Perforation of colon (HCC) 10/29/2011 w/ abscess Tobacco use disorder PAST SURGICAL HISTORY Procedure Laterality Date ARTHROSCOPY KNEE DIAGNOSTIC W/WO SYNOVIAL BX SPX Right 1987 Arthroscopy, knee CARPAL TUNNEL RIGHT WRIST 1989 COLOSTOMY/SKIN LEVEL CECOSTOMY 2011 LAPAROSCOPY RADICAL NEPHRECTOMY 05/2017 ROTATOR CUFF REPAIR Left 09/15/2018 [facility] SIMPLE REVISION COLOSTOMY ALLERGIES Patient has no known allergies. MEDICATIONS metoprolol succinate ER (TOPROL XL) 100 mgTake 1 tablet by mouth once daily.Disp: 30 tabletRfl: 11 losartan (COZAAR) 100 mg tabletTake 1 tablet by mouth once daily.Disp: 30 tabletRfl: 11 gabapentin (NEURONTIN) 400 mg capsuleTake 1 capsule by mouth twice daily for 180 days.Disp: 180 capsuleRfl: 1 Blood Pressure Monitor (BLOOD PRESSURE KIT)1 Each once daily.Disp: 1 KitRfl: 0 FAMILY HISTORY Problem Relation Age of Onset None Mother None Father None Brother None Brother None Brother Social History Tobacco Use Smoking status: Every Day Packs/day: 0.50 Years: 30.00 Pack years: 15.00 Types: Cigarettes Smokeless tobacco: Never Vaping Use Vaping Use: Never used Substance Use Topics Alcohol use: Yes Alcohol/week: 30.0 standard drinks Types: 12 Cans of Beer (12oz) per week Comment: Weekends Drug use: Yes Types: Marijuana PHYSICAL EXAM BP 122/82 Pulse 80 Resp 16 Wt 82.1 kg (181 lb) BMI 29.21 kg/m? General Appearance: well appearing, in no acute distress, alert Skin: Skin color, texture, turgor normal for age; Eyes: conjunctiva pink and moist, no icterus, sclera white, non-injected Neck: Thyroid normal size and symmetric without palpable nodules, Neck supple, No adenopathy Lymph nodes: No cervical lymphadenopathy and No supraclavicular lymphadenopathy Lungs: Lungs clear to auscultation. No wheezing, rhonchi, rales. Heart: RRR without murmur, gallop, or rubs. No ectopy Health maintenance reviewed with patient: COVID-19 VACCINE(3 - Booster for Dejah series) due on 03/21/2021 DTAP,TDAP,TD(2 - Td or Tdap) due on 02/12/2023 COLORECTAL CANCER SCREENING due on 02/12/2023 SHINGRIX VACCINE(1 of 2) due on 02/12/2023 INFLUENZA(1) due on 10/26/2022 ANNUAL PCP TEAM CHRONIC DISEASE VISIT due on 06/02/2023 BP CONTROLLED (<130/80) due on 06/02/2023 PROSTATE CANCER SCREENING DISCUSSION due on 02/04/2024 DIABETES SCREEN due on 03/02/2025 LIPID SCREEN due on 05/04/2026 HEPATITIS B Completed HEPATITIS A Completed DEPRESSION ASSESSMENT Completed HEPATITIS C SCREENING Completed HIV SCREENING Discontinued PNEUMOCOCCAL Discontinued DATA REVIEWED: Most recent labs and imaging results. ASSESSMENT/PLAN: 1. Essential hypertension - ICD9: 401.9, ICD10: I10 (primary diagnosis) - Controlled - Continue current medications - Recommend home blood pressure monitoring, to bring results to next visit - Encouraged sodium restriction, DASH or Mediterranean diet - Recommend regular aerobic exercise - Discussed need for and benefit of weight loss. BMI 29.21 kg/(m2) - Smoking cessation encouraged; discussed risks to hea (more content not included)... [facility] 08-31-2022 History of Present illness Narrative Formatting of this note is different fro m the original. CC: Patient presents with: Recheck: 3 month follow up HPI Prasanth Aguirre is a 62 year old male who presents today for blood pressure follow up. Still with some shortness of breath on exertion. 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 Not severe enough to make him stop the activity. Chronic nonproductive cough without change. Still smoking 5-6 cigarrettes a day and a marijuana joint often. Recent ECHO unremarkable except Grade 1 level diastolic dysfunction. Denies wheezing, fever, chills, chest pressure, edema, change in appetite, or change in weight. HTN: Mr. Aguirre indicates that he is feeling well and denies any symptoms referable to elevated blood pressure. Specifically denies headache, chest pain, palpitations, and peripheral edema. Patient denies any side effects of his medication(s) and is compliant with their regimen. He does not check BP's generally. Prasanth denies regular aerobic exercise. He watches his diet for sodium, low fat and low cholesterol most of the time. Last 3 Encounter BP Readings: Date: BP: 08/31/2022 122/82 06/01/2022 124/78 03/02/2022 127/86 REVIEW OF SYSTEMS General: no fevers, no chills, no night sweats, no recurrent infections, no change in appetite, no change in energy, and no significant changes in weight Respiratory: See HPI Cardiovascular: no chest pain, no chest pressure, no palpitations, and no swelling Neurologic: No headache, weakness, numbness, tingling, dizziness, memory loss, syncope. PAST MEDICAL HISTORY Diagnosis Date Cancer of kidney, right (HCC) 05/2017 Cannabis abuse ETOH abuse Hepatitis C Perforation of colon (HCC) 10/29/2011 w/ abscess Tobacco use disorder PAST SURGICAL HISTORY Procedure Laterality Date ARTHROSCOPY KNEE DIAGNOSTIC W/WO SYNOVIAL BX SPX Right 1987 Arthroscopy, knee CARPAL TUNNEL RIGHT WRIST 1989 COLOSTOMY/SKIN LEVEL CECOSTOMY 2011 LAPAROSCOPY RADICAL NEPHRECTOMY 05/2017 ROTATOR CUFF REPAIR Left 09/15/2018 [facility] SIMPLE REVISION COLOSTOMY ALLERGIES Patient has no known allergies. MEDICATIONS metoprolol succinate ER (TOPROL XL) 100 mg^Take 1 tablet by mouth once daily.^Disp: 30 tablet^Rfl: 11 losartan (COZAAR) 100 mg tablet^Take 1 tablet by mouth once daily.^Disp: 30 tablet^Rfl: 11 gabapentin (NEURONTIN) 400 mg capsule^Take 1 capsule by mouth twice daily for 180 days.^Disp: 180 capsule^Rfl: 1 Blood Pressure Monitor (BLOOD PRESSURE KIT)^1 Each once daily.^Disp: 1 Kit^Rfl: 0 FAMILY HISTORY Problem Relation Age of Onset None Mother None Father None Brother None Brother None Brother Social History Tobacco Use Smoking status: Every Day Packs/day: 0.50 Years: 30.00 Pack years: 15.00 Types: Cigarettes Smokeless tobacco: Never Vaping Use Vaping Use: Never used Substance Use Topics Alcohol use: Yes Alcohol/week: 30.0 standard drinks Types: 12 Cans of Beer (12oz) per week Comment: Weekends Drug use: Yes Types: Marijuana PHYSICAL EXAM BP 122/82 Pulse 80 Resp 16 Wt 82.1 kg (181 lb) BMI 29.21 kg/m General Appearance: well appearing, in no acute distress, alert Skin: Skin color, texture, turgor normal for age; Eyes: conjunctiva pink and moist, no icterus, sclera white, non-injected Neck: Thyroid normal size and symmetric without palpable nodules, Neck supple, No adenopathy Lymph nodes: No cervical lymphadenopathy and No supraclavicular lymphadenopathy Lungs: Lungs clear to auscultation. No wheezing, rhonchi, rales. Heart: RRR without murmur, gallop, or rubs. No ectopy Health maintenance reviewed with patient: COVID-19 VACCINE(3 - Booster for Dejah series) due on 03/21/2021 DTAP,TDAP,TD(2 - Td or Tdap) due on 02/12/2023 COLORECTAL CANCER SCREENING due on 02/12/2023 SHINGRIX VACCINE(1 of 2) due on 02/12/2023 INFLUENZA(1) due on 10/26/2022 ANNUAL PCP TEAM CHRONIC DISEASE VISIT due on 06/02/2023 BP CONTROLLED (<130/80) due on 06/02/2023 PROSTATE CANCER SCREENING DISCUSSION due on 02/04/2024 DIABETES SCREEN due on 03/02/2025 LIPID SCREEN due on 05/04/2026 HEPATITIS B Completed HEPATITIS A Completed DEPRESSION ASSESSMENT Completed HEPATITIS C SCREENING Completed HIV SCREENING Discontinued PNEUMOCOCCAL Discontinued DATA REVIEWED: Most recent labs and imaging results. ASSESSMENT/PLAN: 1. Essential hypertension - ICD9: 401.9, ICD10: I10 (primary diagnosis) - Controlled - Continue current medications - Recommend home blood pressure monitoring, to bring results to next visit - Encouraged sodium restriction, DASH or Mediterranean diet - Recommend regular aerobic exercise - Discussed need for and benefit of weight loss. BMI 29.21 kg/(m^2) - Smoking cessation encouraged; discussed risks to health and quitting strategies. Patient is not ready to quit - METOPROLOL SUCCINATE ER 100 MG TABLET,EXTENDED RELEASE 24 HR - LOSARTAN 100 MG TABLET - COMP METABOLIC PANEL - CBC 2. Shortness of breath on exertion - ICD9: 786.05, ICD10: R06.02 - mild at this time - discussed other options for further evaluating would be Stress Test and/or PFT. Patient declined at this time but will contact office if he changes his mind. 3. Tobacco use disorder - ICD9: 305.1, ICD10: F17.200 - Cessation encouraged. - Physiologic and physical aspects of tobacco addiction as well as strategies for quitting were discussed. - Counseling was given focusing on the harmful effects of this addiction especially given the patient's medical condition(s) which will be worsened because of the chemicals in tobacco. 4. Diastolic dysfunction - ICD9: 429.9, ICD10: I51.89 - discussed importance of smoking cessation, healthy lifestyle choices, regular exercise, blood pressure control, glucose control, and cholesterol control - discussed adding a low dose diuretic. Will address again at next appointment. 5. Abnormal glucose - ICD9: 790.29, ICD10: R73.09 - COMP METABOLIC PANEL - CBC - HGB A1C 6. Lipid screening - ICD9: V77.91, ICD10: Z13.220 - COMP METABOLIC PANEL - LIPID PANEL, NONFASTING Prescription instructions reviewed with patient as applicable. Potential red flag symptoms discussed with the patient. Reviewed appropriate action plan to take if red flag symptoms occur. Patient agreeable to treatment plan. Mini Whiting APRN.BRIDGET documented in this encounter [facility] 06-16-2022 Miscellaneous Notes Formatting of this note might be differe nt from the original. Pts called and is notified of providers results. She voices understanding. Payton Mckenna RN Phoned patient and left message to return call ask for triage nurse. Please let Prasanth know that his echocardiogram shows no significant change from his previous exam. Amy Monreal APRN.BRIDGET documented in this encounter [facility] 06-06-2022 Miscellaneous Notes Formatting of this note might be differe nt from the original. Patient notified. Please let patient know cxr was normal. Continue with plans for echocardiogram. Thank you Mini Whiting APRN.BRIDGET documented in this encounter [facility] 06-01-2022 Note HNO ID: [id number] Author: RT Monique(R) Service: ? Author Type: Head Turbine Operator Type: Progress Notes Filed: 06/01/2022 9:42 AM Note Text: Radiology Service Progress Note PATIENT NAME: Prasanth Aguirre DATE OF SERVICE: June 01, 2022 TIME: 9:33 AM PATIENT IDENTITY VERIFICATION COMPLETED USING TWO (2) IDENTIFIERS: Name and Date of confirmed by patient verbally. FALL SCREENING: Has the patient had 2 falls in the last year or 1 fall with injury or currently using an Ambulatory Assistive Device (Walker, Cane, Wheelchair, Crutches, etc.)? No PATIENT GENDER DATA: Male PATIENT RELEVANT IMPLANT DATA REVIEWED: Yes RADIOLOGY DEPARTMENT: General X-ray: Exam(s) Completed: Chest X-Ray PERIPHERAL IV DATA: Not applicable SIGNED BY: RT Monique(R) June 01, 2022 9:33 AM [facility] 06-01-2022 Note HNO ID: [id number] Author: Mini Whiting APRN.BRIDGET Service: ? Author Type: Nurse Practitioner Type: Progress Notes Filed: 06/01/2022 10:54 AM Note Text: CC: Patient presents with: Recheck: 3 month follow up HPI Prasanth Aguirre is a 62 year old male who presents today for routine follow up. HTN: Mr. Aguirre indicates that he is feeling well and denies any symptoms referable to elevated blood pressure. Specifically denies headache, chest pain, palpitations, and peripheral edema. Patient denies any side effects of his medication(s) and is compliant with their regimen. He does not check BP's generally. Prasanth denies regular aerobic exercise. He watches his diet for sodium, low fat and low cholesterol most of the time. Last 3 Encounter BP Readings: Date: BP: 06/01/2022 124/78 03/02/2022 127/86 02/12/2022 110/70 Down to smoking 5 cigarettes a day and declines any help with smoking cessation. Feels he can quit on his own. Reports shortness of breath with exertion that can vary in being mild or severe enough he will have to sit down and take a break. Does have a chronic cough from smoking he states that has not changed or worsened. Denies wheezing, fever, chills, edema, or difficulty breathing when laying flat. REVIEW OF SYSTEMS General: no fevers, no chills, no night sweats, no recurrent infections, no change in appetite, no change in energy, and no significant changes in weight Respiratory: no hemoptysis, See HPI Cardiovascular: no chest pain, no chest pressure, no palpitations, and no swelling Neurologic: No headache, weakness, numbness, tingling, dizziness, memory loss, syncope. PAST MEDICAL HISTORY Diagnosis Date Cancer of kidney, right (HCC) 05/2017 Cannabis abuse ETOH abuse Hepatitis C Perforation of colon (HCC) 10/29/2011 w/ abscess Tobacco use disorder PAST SURGICAL HISTORY Procedure Laterality Date ARTHROSCOPY KNEE DIAGNOSTIC W/WO SYNOVIAL BX SPX Right 1987 Arthroscopy, knee CARPAL TUNNEL RIGHT WRIST 1989 COLOSTOMY/SKIN LEVEL CECOSTOMY 2011 LAPAROSCOPY RADICAL NEPHRECTOMY 05/2017 ROTATOR CUFF REPAIR Left 09/15/2018 [facility] SIMPLE REVISION COLOSTOMY ALLERGIES Patient has no known allergies. MEDICATIONS gabapentin (NEURONTIN) 400 mg capsule Take 1 capsule by mouth twice daily for 180 days. Blood Pressure Monitor (BLOOD PRESSURE KIT) 1 Each once daily. metoprolol succinate ER (TOPROL XL) 100 mg TAKE 1 TABLET BY MOUTH ONCE DAILY losartan (COZAAR) 100 mg tablet TAKE 1 TABLET BY MOUTH ONCE DAILY gabapentin (NEURONTIN) 300 mg capsule Take 1 capsule by mouth twice daily for 180 days. MULTIVITAMIN (MULTIPLE VITAMIN ORAL) Take by mouth once daily. B Complex Vitamins capsule Take 1 capsule by mouth once daily. FAMILY HISTORY Problem Relation Age of Onset None Mother None Father None Brother None Brother None Brother Social History Tobacco Use Smoking status: Every Day Packs/day: 0.50 Years: 30.00 Pack years: 15.00 Types: Cigarettes Smokeless tobacco: Never Vaping Use Vaping Use: Never used Substance Use Topics Alcohol use: Yes Alcohol/week: 30.0 standard drinks Types: 12 Cans of Beer (12oz) per week Comment: Weekends Drug use: Yes Types: Marijuana PHYSICAL EXAM BP 124/78 Pulse 68 Temp 36.7 ?C (98.1 ?F) (Temporal) Resp 16 Wt 84.4 kg (186 lb) SpO2 98% BMI 30.02 kg/m? General Appearance: well appearing, in no acute distress, alert Skin: Skin color, texture, turgor normal for age; Eyes: conjunctiva pink and moist, no icterus, sclera white, non-injected Neck: Thyroid normal size and symmetric without palpable nodules, Neck supple, No adenopathy Lymph nodes: No cervical lymphadenopathy and No supraclavicular lymphadenopathy Lungs: Lungs clear to auscultation. No wheezing, rhonchi, rales. Heart: RRR without murmur, gallop, or rubs. No ectopy Health maintenance reviewed with patient: BP CONTROLLED (<130/80) Never done COVID-19 VACCINE(3 - Booster for Dejah series) due on 08/18/2022 DTAP,TDAP,TD(2 - Td or Tdap) due on 02/12/2023 COLORECTAL CANCER SCREENING due on 02/12/2023 SHINGRIX VACCINE(1 of 2) due on 02/12/2023 INFLUENZA(Season Ended) due on 10/26/2022 ANNUAL PCP TEAM CHRONIC DISEASE VISIT due on 03/02/2023 PROSTATE CANCER SCREENING DISCUSSION due on 02/04/2024 DIABETES SCREEN due on 03/02/2025 LIPID SCREEN due on 05/04/2026 HEPATITIS B Completed HEPATITIS A Completed DEPRESSION ASSESSMENT Completed HEPATITIS C SCREENING Completed HIV SCREENING Discontinued PNEUMOCOCCAL Discontinued DATA REVIEWED: No new labs ASSESSMENT/PLAN: 1. Essential hypertension - ICD9: 401.9, ICD10: I10 (primary diagnosis) - good control - Continue current medication(s) - Encouraged dietary sodium restriction/DASH diet - Recommended regular aerobic exercise. - Recommend home blood pressure monitoring, to bring results in on next visit - Goal of BP <130/80 2. S (more content not included)... [facility] 03-02-2022 Note HNO ID: [id number] Author: Mini Whiting APRN.CASE MANAGERS Service: ? Author Type: Nurse Practitioner Type: Progress Notes Filed: 03/02/2022 9:50 AM Note Text: CC Patient presents with: Recheck: Follow up BP HPI Prasanth Aguirre is a 61 year old male who presents to the office for blood pressure. His visit today is for follow-up. Patient was last seen for this approximately 2 weeks ago reporting low blood pressures at home iwht his wrist cuff. Medication changes: No, arm cuff prescribed. Taking all medications as prescribed: Yes and has continued with decreased cigarette smoking with 5 a day. Side effects: No Home BP's: Yes unsure on readings. But only readings available were 130s-150s/90s but one showing 114/95 adnb patient reports it is lower than that at time. Did smoke a cigarette prior to elevated blood pressure reading today. Denies: headache, chest pain, palpitations, dyspnea, and peripheral edema. Last 4 Encounter BP Readings: Date: BP: 03/02/2022 158/100 TRUE BP at end of visit 127/86 02/12/2022 110/70 08/18/2021 132/92 05/04/2021 138/90 Last 3 Encounter Wt Readings: Date: Wt: 03/02/2022 87.5 kg (193 lb) 02/12/2022 85.7 kg (189 lb) 08/18/2021 86.2 kg (190 lb) Exercise: denies regular aerobic exercise. Diet: Watch for salt, fat, cholesterol: No. Caffeine: 1-3 cup a day Water intake: none Alcohol intake: none . Frequent NSAID use: No Decongestants: No Thyroid disorders? No Sleep disorders/snoring? No REVIEW OF SYSTEMS General: no fevers, no chills, no night sweats, no recurrent infections, no change in appetite, no change in energy, and no significant changes in weight Respiratory: no cough, no wheezing, no shortness of breath, no hemoptysis Cardiovascular: no chest pain, no chest pressure, no palpitations, and no swelling GI: No nausea, vomiting, or diarrhea Neurologic: No headache, weakness, numbness, tingling, dizziness, memory loss, syncope. PAST MEDICAL HISTORY Diagnosis Date Cancer of kidney, right (HCC) 05/2017 Cannabis abuse ETOH abuse Hepatitis C Perforation of colon (HCC) 10/29/2011 w/ abscess Tobacco use disorder PAST SURGICAL HISTORY Procedure Laterality Date ARTHROSCOPY KNEE DIAGNOSTIC W/WO SYNOVIAL BX SPX Right 1987 Arthroscopy, knee CARPAL TUNNEL RIGHT WRIST 1989 COLOSTOMY/SKIN LEVEL CECOSTOMY 2011 LAPAROSCOPY RADICAL NEPHRECTOMY 05/2017 ROTATOR CUFF REPAIR Left 09/15/2018 [facility] SIMPLE REVISION COLOSTOMY ALLERGIES Patient has no known allergies. MEDICATIONS gabapentin (NEURONTIN) 400 mg capsule Take 1 capsule by mouth twice daily for 180 days. Blood Pressure Monitor (BLOOD PRESSURE KIT) 1 Each once daily. metoprolol succinate ER (TOPROL XL) 100 mg TAKE 1 TABLET BY MOUTH ONCE DAILY losartan (COZAAR) 100 mg tablet TAKE 1 TABLET BY MOUTH ONCE DAILY gabapentin (NEURONTIN) 300 mg capsule Take 1 capsule by mouth twice daily for 180 days. MULTIVITAMIN (MULTIPLE VITAMIN ORAL) Take by mouth once daily. B Complex Vitamins capsule Take 1 capsule by mouth once daily. FAMILY HISTORY Problem Relation Age of Onset None Mother None Father None Brother None Brother None Brother Social History Tobacco Use Smoking status: Every Day Packs/day: 0.50 Years: 30.00 Pack years: 15.00 Types: Cigarettes Smokeless tobacco: Never Vaping Use Vaping Use: Never used Substance Use Topics Alcohol use: Yes Alcohol/week: 30.0 standard drinks Types: 12 Cans of Beer (12oz) per week Comment: Weekends Drug use: Yes Types: Marijuana PHYSICAL EXAM BP 127/86 Pulse 75 Resp 16 Wt 87.5 kg (193 lb) BMI 31.15 kg/m? General Appearance: well appearing, in no acute distress, alert Eyes: conjunctiva pink and moist, no icterus, sclera white, non-injected Lungs: Lungs clear to auscultation. No wheezing, rhonchi, rales. Heart: RRR without murmur, gallop, or rubs. No ectopy DATA REVIEWED: Most recent labs ASSESSMENT/PLAN: 1. Essential hypertension - ICD9: 401.9, ICD10: I10 (primary diagnosis) - good control at end of appointment. Discussed with patient smoking elevates his blood pressure and he should quit to help improve this and not check his BP directly after smoking. - with the previous concerns of low blood pressure and wide range of varying blood pressure ranging from low to very high will check thyroid as well. - Recommended regular aerobic exercise. - Recommend home blood pressure monitoring, to bring results in on next visit - Goal of BP <130/80 - CBC + DIFF - BASIC METABOLIC PNL - TSH BLD 2. Transient hypertension - ICD9: 796.2, ICD10: R03.0 As above - CBC + DIFF - BASIC METABOLIC PNL - TSH BLD 3. Hyperkalemia - ICD9: 276.7, ICD10: E87.5 - slightly elevated 2 weeks ago, will recheck - BASIC METABOLIC PNL 4. Tobacco use disorder - ICD9: 305.1, ICD10: F17.200 - Cessation encouraged. - Physiologic and physical aspects of tobacco addiction as well as s (more content not included)... [facility] 03-02-2022 History of Present illness Narrative Formatting of this note is different fro m the original. CC Patient presents with: Recheck: Follow up BP HPI Praasnth Aguirre is a 61 year old male who presents to the office for blood pressure. His visit today is for follow-up. Patient was last seen for this approximately 2 weeks ago reporting low blood pressures at home iwht his wrist cuff. Medication changes: No, arm cuff prescribed. Taking all medications as prescribed: Yes and has continued with decreased cigarette smoking with 5 a day. Side effects: No Home BP's: Yes unsure on readings. But only readings available were 130s-150s/90s but one showing 114/95 adnb patient reports it is lower than that at time. Did smoke a cigarette prior to elevated blood pressure reading today. Denies: headache, chest pain, palpitations, dyspnea, and peripheral edema. Last 4 Encounter BP Readings: Date: BP: 03/02/2022 158/100 TRUE BP at end of visit 127/86 02/12/2022 110/70 08/18/2021 132/92 05/04/2021 138/90 Last 3 Encounter Wt Readings: Date: Wt: 03/02/2022 87.5 kg (193 lb) 02/12/2022 85.7 kg (189 lb) 08/18/2021 86.2 kg (190 lb) Exercise: denies regular aerobic exercise. Diet: Watch for salt, fat, cholesterol: No. Caffeine: 1-3 cup a day Water intake: none Alcohol intake: none . Frequent NSAID use: No Decongestants: No Thyroid disorders? No Sleep disorders/snoring? No REVIEW OF SYSTEMS General: no fevers, no chills, no night sweats, no recurrent infections, no change in appetite, no change in energy, and no significant changes in weight Respiratory: no cough, no wheezing, no shortness of breath, no hemoptysis Cardiovascular: no chest pain, no chest pressure, no palpitations, and no swelling GI: No nausea, vomiting, or diarrhea Neurologic: No headache, weakness, numbness, tingling, dizziness, memory loss, syncope. PAST MEDICAL HISTORY Diagnosis Date Cancer of kidney, right (HCC) 05/2017 Cannabis abuse ETOH abuse Hepatitis C Perforation of colon (HCC) 10/29/2011 w/ abscess Tobacco use disorder PAST SURGICAL HISTORY Procedure Laterality Date ARTHROSCOPY KNEE DIAGNOSTIC W/WO SYNOVIAL BX SPX Right 1987 Arthroscopy, knee CARPAL TUNNEL RIGHT WRIST 1989 COLOSTOMY/SKIN LEVEL CECOSTOMY 2011 LAPAROSCOPY RADICAL NEPHRECTOMY 05/2017 ROTATOR CUFF REPAIR Left 09/15/2018 [facility] SIMPLE REVISION COLOSTOMY ALLERGIES Patient has no known allergies. MEDICATIONS gabapentin (NEURONTIN) 400 mg capsule Take 1 capsule by mouth twice daily for 180 days. Blood Pressure Monitor (BLOOD PRESSURE KIT) 1 Each once daily. metoprolol succinate ER (TOPROL XL) 100 mg TAKE 1 TABLET BY MOUTH ONCE DAILY losartan (COZAAR) 100 mg tablet TAKE 1 TABLET BY MOUTH ONCE DAILY gabapentin (NEURONTIN) 300 mg capsule Take 1 capsule by mouth twice daily for 180 days. MULTIVITAMIN (MULTIPLE VITAMIN ORAL) Take by mouth once daily. B Complex Vitamins capsule Take 1 capsule by mouth once daily. FAMILY HISTORY Problem Relation Age of Onset None Mother None Father None Brother None Brother None Brother Social History Tobacco Use Smoking status: Every Day Packs/day: 0.50 Years: 30.00 Pack years: 15.00 Types: Cigarettes Smokeless tobacco: Never Vaping Use Vaping Use: Never used Substance Use Topics Alcohol use: Yes Alcohol/week: 30.0 standard drinks Types: 12 Cans of Beer (12oz) per week Comment: Weekends Drug use: Yes Types: Marijuana PHYSICAL EXAM BP 127/86 Pulse 75 Resp 16 Wt 87.5 kg (193 lb) BMI 31.15 kg/m General Appearance: well appearing, in no acute distress, alert Eyes: conjunctiva pink and moist, no icterus, sclera white, non-injected Lungs: Lungs clear to auscultation. No wheezing, rhonchi, rales. Heart: RRR without murmur, gallop, or rubs. No ectopy DATA REVIEWED: Most recent labs ASSESSMENT/PLAN: 1. Essential hypertension - ICD9: 401.9, ICD10: I10 (primary diagnosis) - good control at end of appointment. Discussed with patient smoking elevates his blood pressure and he should quit to help improve this and not check his BP directly after smoking. - with the previous concerns of low blood pressure and wide range of varying blood pressure ranging from low to very high will check thyroid as well. - Recommended regular aerobic exercise. - Recommend home blood pressure monitoring, to bring results in on next visit - Goal of BP <130/80 - CBC + DIFF - BASIC METABOLIC PNL - TSH BLD 2. Transient hypertension - ICD9: 796.2, ICD10: R03.0 As above - CBC + DIFF - BASIC METABOLIC PNL - TSH BLD 3. Hyperkalemia - ICD9: 276.7, ICD10: E87.5 - slightly elevated 2 weeks ago, will recheck - BASIC METABOLIC PNL 4. Tobacco use disorder - ICD9: 305.1, ICD10: F17.200 - Cessation encouraged. - Physiologic and physical aspects of tobacco addiction as well as strategies for quitting were discussed. - Counseling was given focusing on the harmful effects of this addiction especially given the patient's medical condition(s) which will be worsened because of the chemicals in tobacco. Prescription instructions reviewed with patient as applicable. Potential red flag symptoms discussed with the patient. Reviewed appropriate action plan to take if red flag symptoms occur. Patient agreeable to treatment plan Mini Whiting APRN.CNP documented in this encounter [facility] 02-12-2022 Note HNO ID: [id number] Author: Sheri Paredes RDMS Service: ? Author Type: Engineer Of System Development Type: Progress Notes Filed: 02/12/2022 11:24 AM Note Text: Radiology Service Progress Note PATIENT NAME: Prasanth Aguirre DATE OF SERVICE: February 12, 2022 TIME: 11:24 AM PATIENT IDENTITY VERIFICATION COMPLETED USING TWO (2) IDENTIFIERS: Name and Date of confirmed by patient verbally. FALL SCREENING: Has the patient had 2 falls in the last year or 1 fall with injury or currently using an Ambulatory Assistive Device (Walker, Cane, Wheelchair, Crutches, etc.)? No PATIENT GENDER DATA: Male PATIENT RELEVANT IMPLANT DATA REVIEWED: Not Applicable RADIOLOGY DEPARTMENT: Ultrasound PERIPHERAL IV DATA: Not applicable SIGNED BY: Sheri Paredes RDMS RVT February 12, 2022 11:24 AM [facility] 02-12-2022 Note HNO ID: [id number] Author: Mini Whiting APRN.CNP Service: ? Author Type: Nurse Practitioner Type: Progress Notes Filed: 02/12/2022 11:19 AM Note Text: CC: Patient presents with: F/U 6 months HPI Prasanth Aguirre is a 61 year old male who presents today for 6 month follow up. Nontender lump to base of right skull upper side of right neck. Nontender and no change in size. Denies any recent illness, skin infection, pain, fever, chills, change in energy, or abnormal changes in weight. HTN: Mr. Aguirre indicates that he is feeling well and denies any symptoms referable to elevated blood pressure. Specifically denies headache, chest pain, palpitations, dyspnea, and peripheral edema. Patient denies any side effects of his medication(s) and is compliant with their regimen. He does check BP's away from this office with average BP's in the 110s/70s-80s range, but has recently had 80s/60s. Last 3 Encounter BP Readings: Date: BP: 02/12/2022 110/70 08/18/2021 132/92 05/04/2021 138/90 Has been decreasing his amount of cigarrettes to less than 5 cigarettes a day and decreased alcohol intake to only on the weekend. Chronic back pain: On gabapentin for this which is helpful but feels it is not as effective and requesting an increased dose. Denies any numbness, weakness, decreased ROM, loss or difficulty of bowel or bladder, or edema. REVIEW OF SYSTEMS General: no fevers, no chills, no night sweats, no recurrent infections, no change in appetite, no change in energy, and no significant changes in weight HEENT: no frequent or significant headaches, no changes in hearing, no visual changes, no nose bleeds, no sinus or nasal problems Respiratory: no cough, no wheezing, no shortness of breath, no hemoptysis Cardiovascular: no chest pain, no chest pressure, no palpitations, and no swelling Skin: Negative for lesions, rash, and itching Endocrine: no fatigue, no weight gain, no weight loss, no polyuria, no polyphagia, and no polydipsia Neurologic: No headache, weakness, numbness, tingling, dizziness, syncope. PAST MEDICAL HISTORY Diagnosis Date Cancer of kidney, right (HCC) 05/2017 Cannabis abuse ETOH abuse Hepatitis C Perforation of colon (HCC) 10/29/2011 w/ abscess Tobacco use disorder PAST SURGICAL HISTORY Procedure Laterality Date ARTHROSCOPY KNEE DIAGNOSTIC W/WO SYNOVIAL BX SPX Right 1987 Arthroscopy, knee CARPAL TUNNEL RIGHT WRIST 1989 COLOSTOMY/SKIN LEVEL CECOSTOMY 2011 LAPAROSCOPY RADICAL NEPHRECTOMY 05/2017 ROTATOR CUFF REPAIR Left 09/15/2018 [facility] SIMPLE REVISION COLOSTOMY ALLERGIES Patient has no known allergies. MEDICATIONS metoprolol succinate ER (TOPROL XL) 100 mg TAKE 1 TABLET BY MOUTH ONCE DAILY losartan (COZAAR) 100 mg tablet TAKE 1 TABLET BY MOUTH ONCE DAILY gabapentin (NEURONTIN) 300 mg capsule Take 1 capsule by mouth twice daily for 180 days. gabapentin (NEURONTIN) 400 mg capsule Take 1 capsule by mouth twice daily for 180 days. Blood Pressure Monitor (BLOOD PRESSURE KIT) 1 Each once daily. MULTIVITAMIN (MULTIPLE VITAMIN ORAL) Take by mouth once daily. B Complex Vitamins capsule Take 1 capsule by mouth once daily. FAMILY HISTORY Problem Relation Age of Onset None Mother None Father None Brother None Brother None Brother Social History Tobacco Use Smoking status: Every Day Packs/day: 0.50 Years: 30.00 Pack years: 15.00 Types: Cigarettes Smokeless tobacco: Never Vaping Use Vaping Use: Never used Substance Use Topics Alcohol use: Yes Alcohol/week: 30.0 standard drinks Types: 12 Cans of Beer (12oz) per week Comment: Weekends Drug use: Yes Types: Marijuana PHYSICAL EXAM BP 110/70 (BP Site: Left Arm, BP Position: Sitting, BP Cuff Size: Large Adult) Pulse 90 Temp 36.7 ?C (98 ?F) Resp 12 Ht 167.6 cm (5' 6 ) Wt 85.7 kg (189 lb) SpO2 99% BMI 30.51 kg/m? General Appearance: well appearing, in no acute distress, alert Pysch: mood and affect broad and appropriate Skin: Skin color, texture, turgor normal for age; Eyes: conjunctiva pink and moist, no icterus, sclera white, non-injected Ears: external ears normal to inspection and palpation, canals clear, Left tympanic membrane normal. , Right tympanic membrane normal Nose/sinus: Nares normal. Septum midline. Mucosa normal. No drainage. Neck: Thyroid normal size and symmetric without palpable nodules, No adenopathy, enlarge firm non tender mass noted to upper right posterior of neck, probable either occipital or posterior cervical enlarged lymph node Oropharynx: tongue midline and normal, soft palate, uvula, and tonsils normal, palpation of salivary glands negative Lymph nodes: No supraclavicular lymphadenopathy Back: No pain to palpation, Full and painless ROM including flexion, extension, lateral side bending and rotation, Reflexes 2+ and symmetric Lungs: Lungs clear to auscultation. No wheezing, rhonchi, rales. (more content not included)... [facility] 02-12-2022 History of Present illness Narrative Formatting of this note might be differe nt from the original. Radiology Service Progress Note PATIENT NAME: Prasanth Aguirre DATE OF SERVICE: February 12, 2022 TIME: 11:24 AM PATIENT IDENTITY VERIFICATION COMPLETED USING TWO (2) IDENTIFIERS: Name and Date of confirmed by patient verbally. FALL SCREENING: Has the patient had 2 falls in the last year or 1 fall with injury or currently using an Ambulatory Assistive Device (Walker, Cane, Wheelchair, Crutches, etc.)? No PATIENT GENDER DATA: Male PATIENT RELEVANT IMPLANT DATA REVIEWED: Not Applicable RADIOLOGY DEPARTMENT: Ultrasound PERIPHERAL IV DATA: Not applicable SIGNED BY: Sheri Paredes RDMS RVT February 12, 2022 11:24 AM documented in this encounter [facility] 11-08-2021 Miscellaneous Notes Formatting of this note might be differe nt from the original. Opened in error documented in this encounter [facility] 08-22-2021 Miscellaneous Notes Formatting of this note might be differe nt from the original. CD/REPORT READY FOR FILM MOUNTER AT [facility] [place] RADIOLOG[facility] Pt would like to get a copy of report plus CD copy of xr shoulder on 08/18/21. documented in this encounter [facility] 08-18-2021 History of Present illness Narrative CC: Patient presents with: Recheck: BP follow up HPI Prasanth Aguirre is a 61 year old male who presents today for hypertension routine follow up. Has decreased daily cigarettes to 5 a day, but is continuing to eat a large amount of daily salt in his diet. Also has had right shoulder pain for over 6 months with weakness and decreased ROM HTN: Mr. Aguirre indicates that he is feeling well and denies any symptoms referable to elevated blood pressure. Specifically denies headache, chest pain, palpitations, dyspnea and peripheral edema. Patient denies any side effects of his medication(s) and is compliant with their regimen. He does check BP's away from this office with average BP's in the low 130s/90s range. Prasanth denies regular aerobic exercise. He watches his diet for sodium, low fat and low cholesterol generally not very much. Last 3 Encounter BP Readings: Date: BP: 08/18/2021 132/92 05/04/2021 138/90 10/25/2020 128/72 Has had pain to right shoulder for over 6 months now that is accompanies by decrease ROM and weakness. Denies any current known injury, but a few years ago, sprained his shoulder and felt a muscle pop which stopped the shoulder pain. Was told they could reattach the muscle or tendon but felt there would be no help with this. Denies any swelling, redness, or fever. REVIEW OF SYSTEMS General: no fevers, no chills, no night sweats, no recurrent infections, no change in appetite, no change in energy and no significant changes in weight Respiratory: no cough, no wheezing, no shortness of breath, no hemoptysis Cardiovascular: no chest pain, no chest pressure, no palpitations and no swelling Neurologic: No headache, weakness, numbness, tingling, dizziness, syncope. PAST MEDICAL HISTORY Diagnosis Date Cancer of kidney, right (HCC) 05/2017 Cannabis abuse ETOH abuse Hepatitis C Perforation of colon (HCC) 10/29/2011 w/ abscess Tobacco use disorder PAST SURGICAL HISTORY Procedure Laterality Date ARTHROSCOPY KNEE DIAGNOSTIC W/WO SYNOVIAL BX SPX Right 1987 Arthroscopy, knee CARPAL TUNNEL RIGHT WRIST 1989 COLOSTOMY/SKIN LEVEL CECOSTOMY 2011 LAPAROSCOPY RADICAL NEPHRECTOMY 05/2017 ROTATOR CUFF REPAIR Left 09/15/2018 [facility] SIMPLE REVISION COLOSTOMY ALLERGIES Patient has no known allergies. MEDICATIONS gabapentin (NEURONTIN) 300 mg capsule Take 1 capsule by mouth daily at bedtime for 180 days. metoprolol succinate ER (TOPROL XL) 100 mg Take 1 tablet by mouth once daily. losartan (COZAAR) 100 mg tablet Take 1 tablet by mouth once daily. MULTIVITAMIN (MULTIPLE VITAMIN ORAL) Take by mouth once daily. B Complex Vitamins capsule Take 1 capsule by mouth once daily. FAMILY HISTORY Problem Relation Age of Onset None Mother None Father None Brother None Brother None Brother Social History Tobacco Use Smoking status: Current Every Day Smoker Packs/day: 0.50 Years: 30.00 Pack years: 15.00 Types: Cigarettes Smokeless tobacco: Never Used Vaping Use Vaping Use: Never used Substance Use Topics Alcohol use: Yes Alcohol/week: 30.0 standard drinks Types: 12 Cans of Beer (12oz) per week Comment: Weekends Drug use: Yes Types: Marijuana PHYSICAL EXAM BP 132/92 Pulse 72 Resp 16 Wt 86.2 kg (190 lb) BMI 30.67 kg/m General Appearance: well appearing, in no acute distress, alert Skin: Skin color, texture, turgor normal for age; Eyes: conjunctiva pink and moist, no icterus, sclera white, non-injected Neck: Thyroid normal size and symmetric without palpable nodules, No adenopathy Lymph nodes: No cervical lymphadenopathy and No supraclavicular lymphadenopathy Lungs: Lungs clear to auscultation. No wheezing, rhonchi, rales. Heart: RRR without murmur, gallop, or rubs. No ectopy Extremities: No deformities, edema, skin discoloration, clubbing or cyanosis. Good capillary refill. Neck: Inspection: normal Palpation: nontender ROM: normal Musculoskeletal: Right shoulder: normal to inspection. No reported tenderness with palpation. ROM: limited and very painful. Special tests: Drop arm: +, Empty Can: +, Infraspinatus: +, Carlson:+, Neer + Upper extremities: reflexes: +2 to bilateral U/L extremities.. Muscle strength: 4/5 upper, right extremity Health maintenance reviewed with patient: BP CONTROLLED (<130/80) Never done COLORECTAL CANCER SCREENING Never done COVID-19 VACCINE(3 - Booster for Dejah series) due on 05/24/2021 DTAP,TDAP,TD(2 - Td or Tdap) due on 10/27/2021 SHINGRIX VACCINE(1 of 2) due on 10/27/2021 INFLUENZA(Season Ended) due on 10/26/2021 ANNUAL PCP TEAM CHRONIC DISEASE VISIT due on 05/04/2022 DEPRESSION SCREENING due on 05/04/2022 PROSTATE CANCER SCREENING DISCUSSION due on 02/04/2024 DIABETES SCREEN due on 05/04/2024 LIPID SCREEN due on 05/04/2026 HEPATITIS B Completed HEPATITIS A Completed HEPATITIS C SCREENING Completed HIV SCREENING Discontinued PNEUMOCOCCAL Discontinued DATA REVIEWED: No new labs ASSESSMENT/PLAN: 1. Essential hypertension - ICD9: 401.9, ICD10: I10 (primary diagnosis) - suboptimal control, but with decreased salt in diet, I feel this will help get to goal. Patient would prefer this option at this time versus considering additional medicaiton - Continue current medication(s) - Encouraged dietary sodium restriction/DASH diet - Recommended regular aerobic exercise. - Recommend home blood pressure monitoring, to bring results in on next visit - Goal of BP <130/80 - follow up in 6 months or earlier If BP is consistently over 130/80 2. Right shoulder pain, unspecified chronicity - ICD9: 719.41, ICD10: M25.511 - decreased ROM and weakness, Probable rotator cuff injury - XR SHOULDER [id number] AP/TRUE AP RIGHT - CONSULT TO ORTHOPAEDICS 3. RUE weakness - ICD9: 729.89, ICD10: R29.898 As above - XR SHOULDER [id number] AP/TRUE AP RIGHT - CONSULT TO ORTHOPAEDICS 4. Chronic midline low back pain with bilateral sciatica - ICD9: 724.2, 724.3, 338.29, ICD10: M54.41, M54.42, G89.29 - patient needing refill - GABAPENTIN 300 MG CAPSULE Prescription instructions reviewed with patient as applicable. Potential red flag symptoms discussed with the patient. Reviewed appropriate action plan to take if red flag symptoms occur. Patient agreeable to treatment plan. Mini Whiting APRN.BRIDGET documented in this encounter [facility] 03-16-2021 History of Present illness Narrative DATE OF SERVICE: 02/14/2021 HISTORY OF PRESENT ILLNESS: Patient is a 60-year-old male with skin abscess on his buttock on the left side. It has been there since last . No trauma. No injury. No history of anything like this in the past. ALLERGIES, MEDICATIONS, MEDICAL, SURGICAL HISTORY: Per nursing assessment sheets. PHYSICAL EXAMINATION: Vitals are stable. On exam, large buttock abscess on the left side. It is hot, erythematous, and swollen, and tender. Again, vitals are stable. He is not febrile or anything like that. PROCEDURE: He was prepped with betadine and anesthetized with lidocaine 3% with epinephrine for adequate anesthesia, opened with a combination of sharp and blunt dissection, draining out purulent material. A stellate cut was made, copiously irrigated, and loosely packed. IMPRESSION: Buttock abscess, incised and drained. PLAN: Discharged with pain medication, antibiotics for home with the understanding any worsening symptoms, fever or anything like that, that he needs to go to the emergency department. VICENTE Argueta/[id number] SSI File#: [id number] Corrected work type [facility] 03/16/2021 END OF DOCUMENT / CHANGE LOG FOLLOWS Last Edited By Satish. Signed By Anmol Kapoor PAC #DYKLE Anmol Kapoor PAC #DYKLE on 03/21/2021 10:24 ET on 03/21/2021 10:24 ET Revision Number - 2 ^^^ Verified/Reviewed by 03/21/21 Meera [facility] PATIENT NAME: PRASANTH AGUIRRE [facility] [address] MEDICAL REC #: [id number] [place] [address] [facility] REPORT [facility] PHYSICIAN documented in this encounter [facility] Diagnosis Essential hypertension- Primary Unspecified essential hypertension Transient hypertension Elevated blood pressure reading without diagnosis of hypertension Hyperkalemia Hyperpotassemia Tobacco use disorder [facility] Diagnosis Essential hypertension- Primary Unspecified essential hypertension Shortness of breath on exertion Shortness of breath Tobacco use disorder Diastolic dysfunction Heart disease, unspecified Abnormal glucose Other abnormal glucose Lipid screening Screening for lipoid disorders [facility] Diagnosis Acute urinary retention- Primary Other specified retention of urine Abdominal distension Flatulence, eructation, and gas pain Feeling unwell Other ill-defined conditions [facility] Diagnosis Enlarged lymph node Enlargement of lymph nodes [facility] Diagnosis History of recent hospitalization- Primary Personal history of unspecified disease LEN (acute kidney injury) (HCC) Acute kidney failure, unspecified documented in this encounter [facility] for referral (narrative)* Diagnostic Procedure Only (Routine) - Closed Specialty Diagnoses / Procedures Referred By Marielena t Referred To Contact US IMAGING Diagnoses Enlarged lymph node Procedures US HEAD/NECK SOFT TISSUE OTHER US SOFT TISSUE HEAD & NECK REAL TIME IMGE DOCM Mini Whiting APRN.[employer] [address] [place] [address] [place] [address] Referral ID Status Reason Start Date Expiration Date V isits Requested Visits Authorized [id number] Closed Auto-Generate d Referral 02/12/2022 03/14/2023 1 1 [facility] Summary Purpose Family History No Family History Records FoundNo Family History Records FoundNo Family History Records Found Advance Directives No Advanced Directives Records FoundNo Advanced Directives Records FoundNo Advanced Directives Records Found Reason for Referral Specialty Diagnoses / Procedures Referred By Marielena t Referred To Contact Orthopedics Diagnoses Right shoulder pain, unspecified chronicity RUE weakness Procedures CONSULT TO ORTHOPAEDICS OFFICE/OUTPATIENT [facility] 60-74 MINUTES Mini Whiting APRN.[employer] [address] [place] [address] Referral ID Status Reason Start Date Expiration Date Visits Requested Visits Authorized [id number] Authorized PCP Requested Referral 08/18/2021 08/18/2022 1 1 Specialty Diagnoses / Procedures Referred By Marielena t Referred To Contact XR IMAGING Diagnoses Right shoulder pain, unspecified chronicity RUE weakness Procedures XR SHOULDER [id number] AP/TRUE AP RIGHT RADEX SHOULDER COMPLETE MINIMUM 2 VIEWS Mini Whiting APRN.[employer] [address] [place] [address] Xr Imaging Referral ID Status Reason Start Date Expiration Date V isits Requested Visits Authorized [id number] Closed Auto-Generate d Referral 08/18/2021 09/17/2022 1 1 Additional Source Comments (unrecognized sect ion and content) No Status Records FoundNo Status Records FoundNo Status Records Found INFORMATION SOURCE (unrecogn ized section and content) DATE CREATED AUTHOR AUTHOR'S ORGANIZ ATION 03/22/2021 [facility] clair Hassan DATE CREATED AUTHOR AUTHOR'S ORGANIZ ATION 02/02/2023 [facility] Source Comments (unrecognize d section and content) In the event this informatio n is protected by the Federal Confidentiality of Alcohol and Drug Abuse Patient Records regulations: The Federal rules restrict any use of the information to criminally investigate or prosecute any alcohol or drug abuse patient.[facility] the event this information is protected by the Federal Confidentiality of Alcohol and Drug Abuse Patient Records regulations: The Federal rules restrict any use of the information to criminally investigate or prosecute any alcohol or drug abuse patient.[facility] the event this information is protected by the Federal Confidentiality of Alcohol and Drug Abuse Patient Records regulations: The Federal rules restrict any use of the information to criminally investigate or prosecute any alcohol or drug abuse patient.[facility] the event this information is protected by the Federal Confidentiality of Alcohol and Drug Abuse Patient Records regulations: The Federal rules restrict any use of the information to criminally investigate or prosecute any alcohol or drug abuse patient.[facility] the event this information is protected by the Federal Confidentiality of Alcohol and Drug Abuse Patient Records regulations: The Federal rules restrict any use of the information to criminally investigate or prosecute any alcohol or drug abuse patient.[facility] the event this information is protected by the Federal Confidentiality of Alcohol and Drug Abuse Patient Records regulations: The Federal rules restrict any use of the information to criminally investigate or prosecute any alcohol or drug abuse patient.[facility] the event this information is protected by the Federal Confidentiality of Alcohol and Drug Abuse Patient Records regulations: The Federal rules restrict any use of the information to criminally investigate or prosecute any alcohol or drug abuse patient.[facility] the event this information is protected by the Federal Confidentiality of Alcohol and Drug Abuse Patient Records regulations: The Federal rules restrict any use of the information to criminally investigate or prosecute any alcohol or drug abuse patient.[facility] the event this information is protected by the Federal Confidentiality of Alcohol and Drug Abuse Patient Records regulations: The Federal rules restrict any use of the information to criminally investigate or prosecute any alcohol or drug abuse patient.[facility] the event this information is protected by the Federal Confidentiality of Alcohol and Drug Abuse Patient Records regulations: The Federal rules restrict any use of the information to criminally investigate or prosecute any alcohol or drug abuse patient.[facility] HospitalIn the event this information is protected by the Federal Confidentiality of Alcohol and Drug Abuse Patient Records regulations: The Federal rules restrict any use of the information to criminally investigate or prosecute any alcohol or drug abuse patient.[facility] HospitalIn the event this information is protected by the Federal Confidentiality of Alcohol and Drug Abuse Patient Records regulations: The Federal rules restrict any use of the information to criminally investigate or prosecute any alcohol or drug abuse patient.[facility] HospitalIn the event this information is protected by the Federal Confidentiality of Alcohol and Drug Abuse Patient Records regulations: The Federal rules restrict any use of the information to criminally investigate or prosecute any alcohol or drug abuse patient.[facility] Care Teams (unrecognized sec tion and content) Is Technician Relationship Specialty Start Date End Date Slime Foote MD [address] [place], [place] [id number] PCP - General Internal Medicine 11/26/17 Is Technician Relationship Specialty Start Date End Date Slime Foote MD [address] [place], [place] [id number] PCP - General Internal Medicine 11/26/17 Is Technician Relationship Specialty Start Date End Date Slime Foote MD [address] [place], [place] [id number] [phone] PCP - General Internal Medicine 11/26/17 Is Technician Relationship Specialty Start Date End Date Slime Foote MD [address] [place] [id number] PCP - General Internal Medicine 11/26/17 Is Technician Relationship Specialty Start Date End Date Slime Foote MD [address] [place] [address] PCP - General Internal Medicine 11/26/17 Is Technician Relationship Specialty Start Date End Date Slime Foote MD [address] [place] [address] PCP - General Internal Medicine 11/26/17 Is Technician Relationship Specialty Start Date End Date Slime Foote MD [address] [place] [address] PCP - General Internal Medicine 11/26/17 Is Technician Relationship Specialty Start Date End Date Slime Foote MD [address] [place] [address] PCP - General Internal Medicine 11/26/17 Is Technician Relationship Specialty Start Date End Date Slime Foote MD [address] [place] [address] PCP - General Internal Medicine 11/26/17 Reason for Visit (unrecogniz ed section and content) Reason Comments Opened In Error The request for refi ll is in a my chart encounter and have been addressed Reason Comments Release Of Medical Records Reason Comments Recheck Follow up BP Reason Comments Results Reason Comments Recheck 3 month follow up Reason Comments Dizziness Feels off balance x 4 days Reason Comments Radiology US Specialty Diagnoses / Procedures Referred By Contac t Referred To Contact US IMAGING Diagnoses Enlarged lymph node Procedures US HEAD/NECK SOFT TISSUE OTHER US SOFT TISSUE HEAD & NECK REAL TIME IMGE DOCM Mini Whiting APRN.[employer] [address] [place] [address] [facility] [address] Referral ID Status Reason Start Date Expiration Date V isits Requested Visits Authorized [id number] Closed Auto-Generate d Referral 02/12/2022 03/14/2023 1 1 Reason Comments Recheck ER follow up FOR RECORDS PERTAINING TO PATIENTS WHO ARE OR HAVE BEEN ENROLLED IN A CHEMICAL DEPENDENCY/SUBSTANCEABUSE PROGRAM, SOME INFORMATION MAY BE OMITTED. This clinical summary was aggregated from multiple sources. Caution should be exercised in using it in the provision of clinical care. This summary normalizes information from multiple sources, and as a consequence, information in this document may materially change the coding, format and clinical context of patient data. In addition, data may be omitted in some cases. CLINICAL DECISIONS SHOULD BE BASED ON THE PRIMARY CLINICAL RECORDS. [facility]. provides no warranty or guarantee of the accuracy or completeness of information in this document.
[2023-02-13] MEDS: 0.9% Normal Saline (1000mL) 1,000 ML 125 ML IV ×2 (14:37→23:59)
[2023-02-13] MEDS: Ondansetron 4 MG/2 ML Vial IV (14:38)
[2023-02-13] MEDS: Ciprofloxacin 400 MG/200 ML BAG 200 MG IV (17:03)
[2023-02-13] MEDS: Morphine 2 MG/ML Syringe 1 MG IV (19:59)
[2023-02-13] MEDS: Metoclopramide 10 MG/2 ML Vial IV (20:00)
[2023-02-13] MEDS: Acetaminophen 325 MG Tablet PO (20:00)
[2023-02-13] MEDS: 0.9% Saline Lock 10 ML Syringe IV (23:59)
[2023-02-14] MEDS: 0.9% Normal Saline (500mL Bag) 500 ML IV ×2 (01:02→02:44)
[2023-02-14] MEDS: Acetaminophen 325 MG Tablet PO (02:49)
[2023-02-14] MEDS: Morphine 2 MG/ML Syringe 1 MG IV ×2 (02:49→09:03)
[2023-02-14] MEDS: 0.9% Saline Lock 10 ML Syringe IV (02:50)
[2023-02-14 02:56] VITALS: BP 114/82; PULSE 69; RESP 16; TEMP 36.4; O2SAT 97
[2023-02-14] MEDS: Ciprofloxacin 400 MG/200 ML BAG 200 MG IV (05:50)
[2023-02-14 06:01] VITALS: BP 122/90; PULSE 68; RESP 16; TEMP 36.2; O2SAT 97
--- NOTE | 2023-02-14 07:21 | PCM.PN.GU ---
Subjective Subjective Status post laparoscopic robotic assisted left pyeloplasty solitary left kidney, slightly low urine output overnight but with 2 boluses urine output is not good urine is nice and clear he is clinically stable will discharge home today after he is able to tolerate breakfast walk around. Objective Data Objective Data Vital Signs: Vital Signs Temp Pulse Resp BP Pulse Ox O2 Del Method O2 Flow Rate 97.2 F L 68 16 122/90 H 97 Room Air 8 02/14/23 06:01 02/14/23 06:01 02/14/23 06:01 02/14/23 06:01 02/14/23 06:01 02/14/23 06:01 02/13/23 12:20 Oxygen Flow Rate (L/min) 8 Oxygen Delivery Method Room Air Weight: 82 kg Body Mass Index (BMI) 27.4 Intake & Output: Intake and Output for Last 24 Hours 02/12/23 02/13/23 02/14/23 23:59 23:59 23:59 Intake Total 3779.25 / 3779.25 2481.25 / 2481.25 Output Total 300 / 300 200 / 200 Balance 3479.25 / 3479.25 2281.25 / 2281.25
[2023-02-14 08:53] VITALS: BP 144/92; PULSE 60; RESP 18; TEMP 36.4; O2SAT 97
[2023-02-14] MEDS: Docusate Sodium 100 MG Capsule 200 MG PO (08:57)
[2023-02-14 10:08] VITALS: O2SAT 95
[2023-02-14 11:40] VITALS: BP 152/100; PULSE 74; RESP 18; TEMP 36.4; O2SAT 96
== END 2023-02-14 11:51 | disposition home or self-care (01) ==
LOC: SDC 12:32 → MS3 12:32
PROVIDERS: Admitting Provider Urology; PCP Internal Medicine; Referring Provider Urology; Visit Provider Urology
PROC: 8E0W4CZ Robotic Assisted Procedure of Trunk Region, Percutaneous Endoscopic Approach (ICD-10-PCS; CPT 50544; principal; 2023-02-13 08:40)
DX: N20.1 Calculus of ureter (principal); Z90.5 Acquired absence of kidney; F17.210 Nicotine dependence, cigarettes, uncomplicated; I10 Essential (primary) hypertension; Z79.899 Other long term (current) drug therapy; Z85.528 Personal history of other malignant neoplasm of kidney; Z86.19 Personal history of other infectious and parasitic diseases; R06.02 Shortness of breath
CPT/HCPCS: 50544; S2900; 00862; 94668; 96361; 96365; 96366; 96375; 96376; 99221; J7030; J7040; J7120; A4216; G0378; J0744; J2405

== ENCOUNTER → 2023-11-11 | Outpatient (CLI) | payer OTHER, SELFPAY ==
[2023-11-11 11:30] LABS: PSA,Total- Diagnostic 4.83 ng/mL (0.0-4.0)
== END | disposition home or self-care (01) ==
LOC: LAB 09:47
PROVIDERS: PCP Internal Medicine; Referring Provider Urology; Visit Provider Urology
DX: R97.20 Elevated prostate specific antigen [PSA] (principal)
CPT/HCPCS: 36415; 84153